=== PATIENT | female | born 1965 | race Caucasian/White ===

== ENCOUNTER → 2017-01-25 | Outpatient (CLI) | payer OTHER ==
--- NOTE | 2017-01-25 22:20 | CONS ---
CONSULTATION DATE OF SERVICE: 01/25/2017 This 51-year-old lady has been evaluated in the sleep center for possible obstructive sleep apnea-hypopnea syndrome and excessive daytime sleepiness. HISTORY OF PRESENT ILLNESS/SLEEP-WAKE EVALUATION: Patient's usual sleep schedule is basically from 9 p.m. to 7 a.m. on working days and from 9 p.m. until around 7:30 a.m. on the weekend. No problem with falling asleep, although she has a TV set in the bedroom. She sleeps on the side position. She snores, and according to people in the hospital when she had surgery, she has episodes of stopped breathing during sleep. She breathes through her mouth and has awakenings with a dry mouth and sweating, about 3 times at night, and has up to 2 episodes of nocturia. During the day she wakes up tired, has problems paying attention, problems with memory, concentration, anxiety. [place] Sleepiness Scale is significantly increased at 17. She takes naps if possible around 2 p.m. Sometimes she dreams during the naps. No history of cataplexy. No history of hypnagogic hallucinations or sleep paralysis. [place] Sleepiness Scale significantly increased at 17. PAST MEDICAL HISTORY: Positive for anxiety, acid reflux. PAST SURGICAL HISTORY: 1. Ganglion cyst removed. 2. Carpal tunnel syndrome surgery, both arms. 3. Sinus surgery. 4. Left and right knee arthroscopic surgery. 5. Partial hysterectomy in 1998. MEDICATIONS: 1. Zoloft. 2. Baby aspirin. 3. Prevacid. FAMILY HISTORY: Heart problems, fibromyalgia, arthritis, sinus headache, allergies, bronchitis, sleep apnea, snoring, headaches, acid reflux, diabetes, nasal polyps, during sleep, restless legs. SOCIAL HISTORY: Positive for smoking for about 20 pack/years. Quit about 16 years ago. Alcohol consumption occasionally. REVIEW OF SYSTEMS: Awakenings from sleep. Sleepiness during the day in significant range. Increasing weight for the last several years; about 40 pounds in the last 10 years. Perimenopausal hot flashes. PHYSICAL EXAM: This is a 51-year-old pleasant lady without distress. VITAL SIGNS: BP 121/82, HR 83, RR 16, height 5 feet 2 inches, weight 215.6, BMI 39.3. Neck 14 inches in circumference. Temperature 97.7. Oxygen saturation on room air 96%. HEENT: PERRLA, EOMI. Evaluation of oropharynx showed tongue protrudes midline. Moderately low position of soft palate. Short distance between soft palate and posterior pharyngeal wall. Wide pillars. Restriction of nasal breathing on the left side. NECK: Supple. No JVD. Thyroid is not palpable. LUNGS: Clear to percussion and to auscultation. Good air exchange. No wheezing or rhonchi. HEART: S1, S2 with some irregularities. Slight systolic murmur. ABDOMEN: Obese. EXTREMITIES: No clubbing or cyanosis. COMPOUND SPECIALIST: Awake, alert and oriented x3. Cranial nerves 2 to 7 intact. There is no fasciculation or atrophy noted. No focal deficits observed. IMPRESSION: 1. Snoring, witnessed episodes of stopped breathing during the sleep, small oropharyngeal air space, multiple awakenings from sleep with nocturia, significant excessive daytime sleepiness, [place] Sleepiness Scale increased at 17; obstructive sleep apnea-hypopnea syndrome. 2. Obesity; BMI 39.3. 3. Anxiety. 4. Status post ganglion cyst removed. 5. Status post carpal tunnel syndrome surgery. 6. Acid reflux. 7. Status post partial hysterectomy. 8. Status post sinus surgery in 2002. PLAN: 1. Polysomnography for evaluation of patient's breathing during sleep. 2. CPAP/BiPAP titration if sleep study confirms obstructive sleep apnea-hypopnea syndrome. 3. Preferable position during sleep is on the side. 4. No driving if patient feels any sleepiness. Patient is aware of civil and criminal liability for unsafe driving. 5. I will see patient for follow-up visit to explain results of testing and follow-up plan. Thank you very much for referring this patient for consultation. Sincerely, Jason Zambrano MD, PhD, FAASM Diplomat of [employer] Weight Reduction Specialist of [facility] [place] MMODL / IJN: [id number] /
== END ==
LOC: SLEEP 14:01
PROVIDERS: ATTEND Internal Medicine
DX: G47.10 Hypersomnia, unspecified (principal); G47.33 Obstructive sleep apnea (adult) (pediatric); E66.9 Obesity, unspecified; F41.9 Anxiety disorder, unspecified; K21.9 Gastro-esophageal reflux disease without esophagitis; Z98.890 Other specified postprocedural states; Z90.711 Acquired absence of uterus with remaining cervical stump; Z79.899 Other long term (current) drug therapy; Z79.82 Long term (current) use of aspirin; Z87.891 Personal history of nicotine dependence; Z68.39 Body mass index [BMI] 39.0-39.9, adult
CPT/HCPCS: 99211

== ENCOUNTER → 2017-02-05 | Outpatient (CLI) | payer OTHER ==
--- NOTE | 2017-02-07 07:11 | MM ---
Reason for exam: screening (asymptomatic). Last mammogram was performed 7 years ago. History: Patient is postmenopausal. Took hormonal contraceptives for 5 years beginning at age 15. Taking estrogen for 6 years 5 months beginning at age 35. Physical Findings: A clinical breast exam by your physician is recommended on an annual basis and results should be correlated with mammographic findings. MG 3D Screening Mammo W/Cad Bilateral CC and MLO view(s) were taken. Prior study comparison: November 11, 2015, mammogram, performed at [facility]. December 29, 2013, mammogram, performed at [facility]. January 02, 2013, mammogram, performed at [facility]. December 25, 2012, mammogram, performed at [facility]. February 17, 2010, bilateral digital screening mammogram. February 16, 2009, bilateral diagnostic digital mammog. There are scattered fibroglandular densities. Focal asymmetry in the left breast 7.6cm from nipple. This finding is changed when compared with previous exams. ASSESSMENT: Incomplete: need additional imaging evaluation, BI-RAD 0 RECOMMENDATION: Special view mammogram of the left breast. If lesion persists on supplemental views, image directed ultrasound is recommended. [facility] will attempt to contact patient to return for supplemental views and ultrasound if indicated.
== END | disposition home or self-care (01) ==
LOC: RADMAMWWP 16:17
PROVIDERS: ATTEND Obstetrics & Gynecology
DX: Z12.31 Encounter for screening mammogram for malignant neoplasm of breast (principal)
CPT/HCPCS: 77063; G0202

== ENCOUNTER → 2017-02-14 | Outpatient (CLI) | payer OTHER ==
--- NOTE | 2017-02-15 07:38 | MM ---
Reason for exam: additional evaluation requested from abnormal screening. Last mammogram was performed less than 1 month ago. History: Patient is postmenopausal. Took hormonal contraceptives for 5 years beginning at age 15. Taking estrogen for 6 years 5 months beginning at age 35. Physical Findings: Nurse did not find any significant physical abnormalities on exam. MG 3D Work Up W/Cad LT CC and MLO view(s) were taken of the left breast. Prior study comparison: February 05, 2017, bilateral MG 3d screening mammo w/cad. November 11, 2015, mammogram, performed at [facility]. There are scattered fibroglandular densities. There is no discrete abnormality persists on additional views. These results were verbally communicated with the patient and result sheet given to the patient on 02/14/17. ASSESSMENT: Negative, BI-RAD 1 RECOMMENDATION: Return to routine screening mammogram schedule for both breasts.
== END | disposition home or self-care (01) ==
LOC: RADMAMWWP 15:08
PROVIDERS: ATTEND Obstetrics & Gynecology
DX: R92.8 Other abnormal and inconclusive findings on diagnostic imaging of breast (principal)
CPT/HCPCS: G0206; G0279

== ENCOUNTER → 2017-05-03 | Outpatient (CLI) | payer OTHER ==
--- NOTE | 2017-05-03 15:11 | PN ---
PROGRESS NOTE DATE OF SERVICE: 05/03/2017 A 51-year-old lady who has been followed in the Sleep Center for treatment of obstructive sleep apnea-hypopnea syndrome. Recently patient had diagnostic sleep study and CPAP titration and I discussed results of sleep studies with patient in details. The diagnostic sleep study showed severe obstructive sleep apnea-hypopnea syndrome in the range of apnea-hypopnea index 30.1 with oxygen desaturation to 79.5%. Recommended CPAP pressure was 11 cm of water. Patient subsequently was started on treatment with CPAP and she sleeps much better with CPAP. No awakenings as before. No sleepiness during the day as before. Today [place] Sleepiness Scale is 9. I checked the patient's CPAP unit. CPAP pressure 11 cm of water usage is 100% of the time more than 4 hours, average 9.2 hours. Leak is 7 L/minute which is perfect. Apnea- hypopnea index is only 1.2. MEDICATIONS: Prevacid, baby aspirin, Zoloft. PHYSICAL EXAM: Patient in no distress. BP 117/68, HR 88, RR 16, weight 219, temp 98.1. Oxygen saturation at room air 96%. OROPHARYNX: Low position of soft palate. ABDOMEN: Obese. Neck Supple, no JVD. Thyroid is not palpable. LUNGS Clear to percussion and to auscultation. Good air exchange. No wheezing or rhonchi. HEART S1, S2 regular. No murmurs, gallops, or rubs. EXTREMITIES No clubbing or cyanosis. [employer] Awake, alert, and oriented X3. Cranial nerves 2 to 7 intact. There is no fasciculation or atrophy. noted. No focal deficits observed. IMPRESSION: 1. Obstructive sleep apnea-hypopnea syndrome on the border of severe range. Apnea- hypopnea index of 30.1 on full control with CPAP at 11 cm of water. Patient demonstrated 100% compliance with treatment, benefitting from treatment. 2. Obesity. 3. Anxiety. 4. Status post ganglion cyst removed. 5. Status post carpal tunnel syndrome treated by Surgery. 6. Acid reflux. 7. Status post partial hysterectomy. 8. Status post sinus surgery. PLAN: 1. Continue treatment with CPAP every night. 2. Losing weight. 3. Sleep hygiene with regular time in bed for at least 7.5 hours. 4. No driving if feeling any sleepiness. Thank you very much for allowing me to participate in the management of your patient. Sincerely, Jason Zambrano MD, PhD, FAASM Diplomat of [employer] Drafter of [facility] [place] MMULISES / RADHA: [id number] /
== END | disposition home or self-care (01) ==
LOC: SLEEP 13:53
PROVIDERS: ATTEND Internal Medicine
DX: G47.33 Obstructive sleep apnea (adult) (pediatric) (principal); E66.9 Obesity, unspecified; K21.9 Gastro-esophageal reflux disease without esophagitis; F41.9 Anxiety disorder, unspecified; Z79.899 Other long term (current) drug therapy; Z79.82 Long term (current) use of aspirin; Z98.890 Other specified postprocedural states; Z90.711 Acquired absence of uterus with remaining cervical stump; Z99.89 Dependence on other enabling machines and devices

== ENCOUNTER → 2017-08-07 | Outpatient (CLI) | payer OTHER ==
--- NOTE | 2017-08-07 15:46 | CT ---
EXAMINATION TYPE: CT abdomen pelvis w con DATE OF EXAM: 08/07/2017 HISTORY: Generalized pain and bloating with blood in stool CT DLP: 1454.4mGycm Automated Exposure Control for Dose Reduction was Utilized. CONTRAST: CT scan of the abdomen and pelvis is performed with oral and with IV Contrast, patient injected with 100 mL of Omnipaque 300. COMPARISON: CT abdomen pelvis February 25, 2010 FINDINGS: LUNG BASES: No significant abnormality is appreciated. LIVER/GB: No significant abnormality is appreciated. PANCREAS: No significant abnormality is seen. SPLEEN: No significant abnormality is seen. ADRENALS: No significant abnormality is seen. KIDNEYS: No significant abnormality is seen. BOWEL: Oral contrast reaches level of mid transverse colon. There is no suspicious small or large bow el dilatation. Terminal ileum appears within normal limits. There is mild wall thickening in the sigm oid colon. UTERUS/ADNEXA: Uterus is suspected surgically absent. Remnant ovaries are noted and not suspiciously enlarged near axial image 73. Scattered pelvic phleboliths are again seen. LYMPH NODES: No greater than 1cm abdominal or pelvic lymph nodes are appreciated. OSSEOUS STRUCTURES: Mild multilevel spurring in the thoracolumbar spine is present. There is facet ar thropathy lower lumbar levels. OTHER: No significant additional abnormality is seen. IMPRESSION: Mild wall thickening at level of sigmoid colon favors product of poor distention, mild co litis at this level cannot be excluded otherwise fairly unremarkable study.
== END | disposition home or self-care (01) ==
LOC: RADCTMAIN 14:04
PROVIDERS: ATTEND Surgery Plastic and Reconstructive Surgery
DX: K63.89 Other specified diseases of intestine (principal)
CPT/HCPCS: 74177; Q9967

== ENCOUNTER 2017-08-10 11:39 | Day surgery (SDC) | payer OTHER ==
[2017-08-07 15:00] VITALS: BMI 39.4
--- NOTE | 2017-08-10 07:03 | P.GSHP ---
History of Present Illness H&P Date: 08/10/17 CHIEF COMPLAINT: GERD and colon cancer screen HISTORY OF PRESENT ILLNESS: The patient is a 51-year-old female who presents with gastroesophageal reflux disease and colon cancer screen. Upper and lower endoscopy were offered for further evaluation and management. PAST MEDICAL HISTORY: Please see list. PAST SURGICAL HISTORY: Please see list. MEDICATIONS: Please see list. ALLERGIES: Please see list. SOCIAL HISTORY: No illicit drug use FAMILY HISTORY: No reports of Crohn disease or ulcerative colitis. REVIEW OF ORGAN SYSTEMS: CONSTITUTIONAL: No reports of fevers or chills. PHYSICAL EXAM: VITAL SIGNS: Stable GENERAL: Well-developed pleasant in no acute distress. HEENT: No scleral icterus. Extraocular movements grossly intact. Moist buccal mucosa. NECK: Supple without lymphadenopathy. CHEST: Unlabored respirations. Equal bilateral excursions. CARDIOVASCULAR: Regular rate and rhythm. Distal 2+ pulses. ABDOMEN: Soft, nondistended. MUSCULOSKELETAL: No clubbing, cyanosis, or edema. ASSESSMENT: 1. Gastroesophageal reflux disease 2. Colon cancer screen PLAN: 1. 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 History of Any Multi-Drug Resistant Organisms: None Reported Past Surgical History: Hysterectomy, Orthopedic Surgery Additional Past Surgical History / Comment(s): NASAL surgery, SERGIO KNEES ARTHROSCOPY,SERGIO CARPAL TUNNEL, SERGIO WRIST GANGLION CYST, CYST REMOVED LT ARM Past Anesthesia/Blood Transfusion Reactions: No Reported Reaction Past Psychological History: No Psychological Hx Reported Smoking Status: Former smoker Past Alcohol Use History: Occasional Additional Past Alcohol Use History / Comment(s): quit smoking 14 yrs ago, smoked 1 Pack/ week Past Drug Use History: None Reported - Past Family History Mother Family Medical History: No Reported History Medications and Allergies Home Medications Medication Instructions Recorded Confirmed Type Sertraline [Zoloft] 50 mg PO DAILY 03/17/14 08/07/17 History Aspirin [Adult Low Dose Aspirin EC] 81 mg PO DAILY 01/11/16 08/07/17 History Omeprazole [Omeprazole] 20 mg PO DAILY 08/07/17 08/07/17 History Allergies Allergy/AdvReac Type Severity Reaction Status Date / Time Penicillins Allergy Severe Rash/Hives Verified 08/07/17 14:56 hydrocodone bitartrate Allergy Mild Rash/Hives Verified 08/07/17 14:56 [From Vicodin]
[~2017-08-10 11:39] MED LIST: LACTATED RINGERS 1,000 ML IV SCH
[2017-08-10 12:55] VITALS: TEMP 96.3
[2017-08-10] MEDS ORDERED: LIDOCAINE 1% 20 ML VIAL (10MG/ML) FOR IV START INTRADERMA ONE (12:58)
[2017-08-10] MEDS ORDERED: LIDOCAINE 1% INJ 10MG/ML (20 ML MDV) ONE (13:08)
[2017-08-10] MEDS ORDERED: PROPOFOL 10 MG/ML 20 ML VIAL IV ONE (13:08)
[2017-08-10] MEDS ORDERED: fentaNYL (PF) 50 MCG/ML 2 ML AMP ONE (13:08)
--- NOTE | 2017-08-10 13:18 | P.PCN ---
Date of Procedure: 08/10/17 Description of Procedure: PREOPERATIVE DIAGNOSIS: Gastroesophageal reflux disease. Morbid obesity. POSTOPERATIVE DIAGNOSIS: Morbid obesity. Gastritis. Gastroesophageal reflux disease. OPERATION: Esophagogastroduodenoscopy with biopsies along antrum. SURGEON: Holly Murphy MD ANESTHESIA: MAC. INDICATIONS: The patient is a 51-year-old female who presents with a history of reflux disease. Benefits and risks of the procedure were described. Informed consent was obtained. DESCRIPTION: The patient was brought into the endoscopy suite and laid in the left lateral decubitus position. An Olympus gastroscope was passed along the posterior oropharynx down to the distal esophagus where the squamocolumnar junction was encountered at 36 cm from the incisors. The stomach was entered and no bile reflux was found. Additional findings are listed below. Biopsies with cold forceps were obtained of the antrum. The first through third portion of the duodenum was examined and unremarkable. Retroflexion of the scope confirmed Hill grade 1 lower esophageal valve. The squamocolumnar junction demostrated no LA grade A erosive esophagitis. The stomach was desufflated. The patient tolerated the procedure well. FINDINGS: Squamocolumnar junction 36 cm from the incisors. Diaphragmatic hiatus at 36 cm. Hill grade 1 lower esophageal valve. No LA grade A erosive esophagitis. No active duodenitis. No moderate gastritis. RECOMMENDATIONS: Further recommendations pending results of pathology report. Upper endoscopy as needed.
--- NOTE | 2017-08-10 13:46 | P.PCN ---
Date of Procedure: 08/10/17 Description of Procedure: PREOPERATIVE DIAGNOSIS: Colon screen History of polyps POSTOPERATIVE DIAGNOSIS: Colon screen History of polyps Colitis OPERATION: Colonoscopy to the hepatic flexure Colonoscopy cold forceps biopsies, random SURGEON: Holly Murphy MD. ANESTHESIA: MAC. INDICATIONS: The patient is a 51-year-old female who presents with colon screening. Benefits and risks were described and informed consent was obtained. DESCRIPTION OF PROCEDURE: The patient had undergone Gatorade, MiraLAX and Dulcolax prep. She had been brought into the operating room and laid in the left lateral decubitus position. After adequate intravenous sedation, the rectum was examined with 2% lidocaine jelly. An external hemorrhoids were encountered. The rectal tone was within normal limits. No lesions were palpated in the rectal vault. An Olympus colonoscope was advanced to the hepatic flexure. The patient was reposition from left lateral decubitus position to supine including abdominal pressure where the scope could not safely pass beyond the hepatic flexure. The prep was excellent with clear visualization of the mucosal folds. The scope was removed with visualization of each mucosal fold. No scattered diverticulosis was encountered. Random biopsies were obtained throughout the colon for change in bowel habits to evaluate for colitis. The colon was desufflated. The patient had tolerated the procedure well. Withdrawal time was over 6 minutes. FINDINGS: External prolapsed hemorrhoid No arteriovenous malformations. No large colonic polyps Colonoscopy to hepatic flexure RECOMMENDATIONS: Repeat colonoscopy in 3 years, 2020 Plan - Discharge Summary New Discharge Prescriptions: No Action Sertraline [Zoloft] 50 mg PO DAILY Aspirin [Adult Low Dose Aspirin EC] 81 mg PO DAILY Omeprazole [Omeprazole] 20 mg PO DAILY Discharge Medication List Sertraline [Zoloft] 50 mg PO DAILY 03/17/14 [History] Aspirin [Adult Low Dose Aspirin EC] 81 mg PO DAILY 01/11/16 [History] Omeprazole [Omeprazole] 20 mg PO DAILY 08/07/17 [History] Follow up Appointment(s)/Referral(s): Holly Murphy MD [STAFF PHYSICIAN] - 08/14/17 ([place]) Discharge Disposition: HOME SELF-CARE
[2017-08-10 14:04] VITALS: PULSE 70
[2017-08-10 14:17] VITALS: BP 128/81; RESP 16
== END 2017-08-10 14:36 | disposition home or self-care (01) ==
LOC: ORWHC2ENDO 11:39
PROVIDERS: ATTEND Surgery Plastic and Reconstructive Surgery
DX: Z12.11 Encounter for screening for malignant neoplasm of colon (principal); K29.50 Unspecified chronic gastritis without bleeding; K52.9 Noninfective gastroenteritis and colitis, unspecified; K64.8 Other hemorrhoids; Z86.010 Personal history of colon polyps; K21.9 Gastro-esophageal reflux disease without esophagitis; E66.01 Morbid (severe) obesity due to excess calories; Z68.39 Body mass index [BMI] 39.0-39.9, adult; M19.90 Unspecified osteoarthritis, unspecified site; F32.9 Major depressive disorder, single episode, unspecified; Z87.891 Personal history of nicotine dependence; Z79.82 Long term (current) use of aspirin; Z79.899 Other long term (current) drug therapy; Z88.5 Allergy status to narcotic agent; Z88.0 Allergy status to penicillin
CPT/HCPCS: 88305; 45380; 43239; J2001; J3010; J2704

== ENCOUNTER 2017-09-28 09:39 | Day surgery (SDC) | payer OTHER ==
[2017-09-26 10:33] VITALS: BMI 39.3
--- NOTE | 2017-09-28 05:42 | P.GSHP ---
History of Present Illness H&P Date: 09/28/17 CHIEF COMPLAINT: Cholecystitis HISTORY OF PRESENT ILLNESS: The patient is a 52-year-old female who presents with history of epigastric including right upper quadrant abdominal pain. She underwent diagnostic studies for her gallbladder. Separately her clinical picture was consistent with cholecystitis. Now she presents for surgical intervention. PAST MEDICAL HISTORY: Please see list PAST SURGICAL HISTORY: Please see list MEDICATIONS: Please see list ALLERGIES: See list. SOCIAL HISTORY: No recent tobacco use FAMILY HISTORY: Pertinent for gallbladder disease REVIEW OF ORGAN SYSTEMS: CONSTITUTIONAL: No reports of fevers or chills. HEENT: Denies any troubles with the vision or hearing. PHYSICAL EXAM: VITAL SIGNS: Afebrile vital signs stable GENERAL: Well-developed pleasant in no acute distress. HEENT: No scleral icterus. Extraocular movements grossly intact. Moist buccal mucosa. NECK: Supple without lymphadenopathy. CHEST: Unlabored respirations. Equal bilateral excursions. CARDIOVASCULAR: Regular rate regular rhythm rhythm. Distal 2+ pulses. ABDOMEN: Soft, nondistended. Tender along the epigastrium and right upper quadrant. MUSCULOSKELETAL: No clubbing, cyanosis, or edema. NEURO: Cranial nerves II to XII within normal limits. No focal or lateralizing signs. PSYCH: Alert and oriented to person, place and time. ASSESSMENT: 1. Epigastric and right upper quadrant abdominal pain 2. Chronic cholecystitis PLAN: 1. Will need a robotic cholecystectomy possible open. Benefits and risks were described. 2. Heparin for DVT prophylaxis 5000 units. 3. Antibiotic prophylaxis. 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, has c-pap machine History of Any Multi-Drug Resistant Organisms: None Reported Past Surgical History: Hysterectomy, Orthopedic Surgery Additional Past Surgical History / Comment(s): NASAL surgery, SERGIO KNEES ARTHROSCOPY,SERGIO CARPAL TUNNEL, SERGIO WRIST GANGLION CYST, CYST REMOVED LT ARM Past Anesthesia/Blood Transfusion Reactions: No Reported Reaction, Family History of Problems w/ Anesthesia Additional Past Anesthesia/Blood Transfusion Reaction / Comment(s): "brother has hard time coming of out anethesia with PONV" Smoking Status: Former smoker - Past Family History Mother Family Medical History: No Reported History Medications and Allergies Home Medications Medication Instructions Recorded Confirmed Type Sertraline [Zoloft] 50 mg PO DAILY 03/17/14 09/26/17 History Aspirin [Adult Low Dose Aspirin EC] 81 mg PO DAILY 01/11/16 09/26/17 History Omeprazole [Omeprazole] 20 mg PO DAILY 08/07/17 09/26/17 History Allergies Allergy/AdvReac Type Severity Reaction Status Date / Time Penicillins Allergy Severe Rash/Hives Verified 09/26/17 10:23 hydrocodone bitartrate Allergy Mild Rash/Hives Verified 09/26/17 10:23 [From Vicodin]
[~2017-09-28 09:39] MED LIST changes: +ACETAMINOPHEN IV (For NPO) 1,000 MG in EMPTY BAG 1 BAG IVPB ONE; +DEXAMETHASONE SOD PHOSPHATE 10 MG/ML 1 ML VIAL IV ONE; +HEPARIN SODIUM,PORCINE 5,000 UNIT/ML 1 ML VIAL SQ ONE; +INDOCYANINE GREEN 25 MG VIAL IV STA; +LIDOCAINE 1% 20 ML VIAL (10MG/ML) FOR IV START INTRADERMA PRN; +MIDAZOLAM 2 MG/2 ML VIAL IV PRN; +ONDANSETRON 4 MG/2 ML VIAL IVP ONE; +SCOPOLAMINE 1.5MG/72HR PATCH TRANSDERM ONE; +ceFAZolin IN SWFI 2 GM/20 ML SYRINGE IVP ONE
[2017-09-28 10:47] VITALS: RESP 16
[2017-09-28 10:58] LABS: Basophils % (A) 0 %; Eosinophils # (A) 0.3 k/uL (0-0.7); Eosinophils % (A) 5 %; HCT 37.9 % (34.0-46.0); HGB 12.9 gm/dL (11.4-16.0); Lymphocytes # (A) 1.7 k/uL (1.0-4.8); Lymphocytes % (A) 30 %; MCH 31.3 pg (25.0-35.0); MCV 91.9 fL (80.0-100.0); Mean Platelet Volume 7.8; Monocytes # (A) 0.4 k/uL (0-1.0); Monocytes % (A) 7 %; Neutrophils # (A) 3.1 k/uL (1.3-7.7); Neutrophils % (A) 56 %; Platelet Count 309 k/uL (150-450); RBC 4.13 m/uL (3.80-5.40); RDW 12.3 % (11.5-15.5); WBC 5.7 k/uL (3.8-10.6)
[2017-09-28 11:09] LABS: ALT 28 U/L (9-52); AST 15 U/L (14-36); Alkaline Phosphatase 89 U/L (38-126); Anion Gap 11 mmol/L; Blood Urea Nitrogen 12 mg/dL (7-17); Calcium 9.3 mg/dL (8.4-10.2); Carbon Dioxide 26 mmol/L (22-30); Chloride 106 mmol/L (98-107); Glucose 101 mg/dL (74-99); Potassium 4.4 mmol/L (3.5-5.1); Sodium 143 mmol/L (137-145); Total Bilirubin 0.8 mg/dL (0.2-1.3)
[2017-09-28] MEDS ORDERED: GLYCOPYRROLATE 0.2 MG/ML 2 ML VIAL ONE (11:38)
[2017-09-28] MEDS ORDERED: NEOSTIGMINE 1 MG/ML 10 ML VIAL ONE (11:38)
[2017-09-28] MEDS ORDERED: SUCCINYLCHOLINE CHLORIDE 100 MG/5 ML SYR IV ONE (11:38)
[2017-09-28] MEDS ORDERED: ePHEDrine SULFATE/0.9% NACL/PF 50 MG/5 ML SYRINGE IV ONE (11:38)
[2017-09-28] MEDS ORDERED: LIDOCAINE 1% INJ 10MG/ML (20 ML MDV) ONE (11:38)
[2017-09-28] MEDS ORDERED: MIDAZOLAM 2 MG/2 ML VIAL ONE (11:38)
[2017-09-28] MEDS ORDERED: fentaNYL (PF) 50 MCG/ML 2 ML AMP ONE (11:38)
[2017-09-28] MEDS ORDERED: PROPOFOL 10 MG/ML 20 ML VIAL IV ONE (11:38)
[2017-09-28] MEDS ORDERED: INDOCYANINE GREEN 25 MG VIAL IV ONE (11:38)
[2017-09-28] MEDS ORDERED: ROCURONIUM BROMIDE 10 MG/ML 10 ML VIAL IV ONE (11:38)
[2017-09-28] MEDS ORDERED: BUPIVACAINE (PF) 0.25% 30 ML VIAL SQ ONE (12:02)
[2017-09-28] MEDS ORDERED: LACTATED RINGERS 1,000 ML IV ONE (12:38)
--- NOTE | 2017-09-28 12:48 | P.OP ---
Date of Procedure: 09/28/17 Description of Procedure: SURGEON: ZAK BRYANT MD MANAGER [place]: [place] PREOPERATIVE DIAGNOSES: 1. Chronic cholecystitis. 2. Right upper quadrant abdominal pain 3. Morbid obesity due to excess calories 4. BMI 39.3 5. Obstructive sleep apnea. 6. Gastroesophageal reflux disease POSTOPERATIVE DIAGNOSES: 1. Chronic cholecystitis. 2. Right upper quadrant abdominal pain 3. Morbid obesity due to excess calories 4. BMI 39.3 5. Obstructive sleep apnea. 6. Gastroesophageal reflux disease OPERATION: 1. Robotic-assisted da Juliana Xi laparoscopic cholecystectomy, multiport with FIREFLY ESTIMATED BLOOD LOSS: 5 mL SPECIMENS REMOVED: Gallbladder COMPLICATIONS: None. OPERATIVE FINDINGS: 1. Chronic cholecystitis INDICATIONS: The patient is a 52-year-old female who presents with chronic cholelcystitis. Surgical intervention with a laparoscopic cholecystectomy was described at length including injury to the biliary tree, bleeding, infection, need for further surgery. Informed consent was obtained. Robotic assisted laparoscopic approach was described. Benefits and risks of the procedure including but not limited to bleeding, infection, injury to the biliary tree was described. Informed consent was obtained. DESCRIPTION OF PROCEDURE: Patient was brought to the operating room, placed in supine position. After general induction, the abdomen had been prepped and draped in standard sterile fashion. The robotic da Juliana XI system was primed. After a timeout protocol was performed, the patient had been prepped and draped in standard sterile fashion. The patient was injected with indocyanine green. The robot was docked along the left lateral abdomen. The patient was repositioned in reverse Trendelenburg position. Please note prior to docking of the robot; however, a 5 mm 0 degrees laparoscopic trocar entry was performed along the left upper quadrant. Next, two 8 mm robotic ports were placed along the right upper abdomen. The camera 8-mm port was maintained along the epigastrium. Another 8 mm port was placed along the left upper abdominal wall after exchanging the 5 mm port. Please note that the ports were placed at least 10 to 15 cm away from the target anatomy of the gallbladder. Using a grasper for arm 3, a grasper for arm 2, including hook cautery for arm 1 , the robotic system was docked and primed as described. Instruments were interchanged by the chiropractic assistant including hook cautery, Bovie cautery scissors and clip appliers. I had sat at the console. Adhesions were identified along the infundibulum of the gallbladder and addressed using hook cautery. The gallbladder fundus was retracted over the dome of the liver. Initial attention was brought to the infundibulum which was gently retracted in the inferior lateral approach. Using a grasper, the cystic duct including the cystic artery was carefully skeletonized. FIREFLY was used to identify the cystic artery and cystic structures. Using a clip software licensing analyst 2 large PLASTIC clips were placed proximally, and 1 clip was placed distally along the cystic duct and then cauterized with the cautery. Again care was taken to avoid any injury to the biliary tree as the common bile duct was clearly visualized during this portion of dissection. Next, the cystic artery was cauterized after 2 large PLASTIC clips were placed. Electro-Bovie cautery was used to remove the gallbladder from the hepatic fossa. Hemostasis was checked and found to be adequate. The robot was undocked. I re-scrubbed into the case. Using a 10 mm Endo Catch bag via the left upper quadrant incision, the specimen was removed from the abdominal cavity. All pneumoperitoneum instruments were evacuated from the abdominal cavity. The incisions were reapproximated using 4-0 Monocryl in an interrupted subcuticular fashion. Fascial defect was less than 8 mm in size. Please note along the trocar sites, local anesthetic was placed as a field block prior to insertion of all instruments. Dermabond was applied to the skin. At the end of the procedure needle, sponge, and instrument count had been verified correct by the registered nurse surgical services. The patient was transferred to postanesthesia care unit in stable condition. Intraoperative films were shared with the patient's family who were very pleased with the level of care. Console time 13 minutes Plan - Discharge Summary New Discharge Prescriptions: No Action Sertraline [Zoloft] 50 mg PO DAILY Aspirin [Adult Low Dose Aspirin EC] 81 mg PO DAILY Omeprazole [Omeprazole] 20 mg PO DAILY Discharge Medication List Sertraline [Zoloft] 50 mg PO DAILY 03/17/14 [History] Aspirin [Adult Low Dose Aspirin EC] 81 mg PO DAILY 01/11/16 [History] Omeprazole [Omeprazole] 20 mg PO DAILY 08/07/17 [History]
[2017-09-28 12:57] VITALS: TEMP 97
[2017-09-28] MEDS: MORPHINE SULFATE 4 MG/ML SYRINGE IV PRN ×4 (13:07→13:30)
[2017-09-28 14:10] VITALS: PULSE 95
[2017-09-28] MEDS ORDERED: IBUPROFEN 600 MG TAB PO STA (14:15)
[2017-09-28 14:39] VITALS: BP 115/74
== END 2017-09-28 15:19 | disposition home or self-care (01) ==
LOC: OR 09:39
PROVIDERS: ATTEND Surgery Plastic and Reconstructive Surgery
DX: K81.1 Chronic cholecystitis (principal); K82.8 Other specified diseases of gallbladder; K21.9 Gastro-esophageal reflux disease without esophagitis; G47.33 Obstructive sleep apnea (adult) (pediatric); K58.9 Irritable bowel syndrome, unspecified; E66.01 Morbid (severe) obesity due to excess calories; K44.9 Diaphragmatic hernia without obstruction or gangrene; Z68.39 Body mass index [BMI] 39.0-39.9, adult; Z79.82 Long term (current) use of aspirin; M19.90 Unspecified osteoarthritis, unspecified site; Z87.891 Personal history of nicotine dependence; Z99.89 Dependence on other enabling machines and devices; Z88.0 Allergy status to penicillin; Z88.5 Allergy status to narcotic agent; Z79.899 Other long term (current) drug therapy; Z90.710 Acquired absence of both cervix and uterus
CPT/HCPCS: 88304; 80053; 85025; 47562; J2250; J2270; J1644; J1100; J2710; J2405; J2001; J3010; J0330; J2704; J0690

== ENCOUNTER 2019-12-15 08:04 | Day surgery (SDC) | payer OTHER ==
[2019-12-15 08:24] VITALS: RESP 16; TEMP 98.5
[2019-12-15] MEDS ORDERED: SODIUM CHLORIDE 0.9% 500 ML 500 ML IV ONE (08:24)
[2019-12-15] MEDS ORDERED: fentaNYL (PF) 50 MCG/ML 2 ML AMP ONE (09:40)
[2019-12-15] MEDS: BENZOCAINE SPRAY 1 CAN TOPICAL ONE ×2 (09:49→10:02)
[2019-12-15] MEDS ORDERED: MIDAZOLAM 2 MG/2 ML VIAL IV ONE (10:09)
[2019-12-15] MEDS ORDERED: fentaNYL (PF) 50 MCG/ML 2 ML AMP IV ONE (10:09)
--- NOTE | 2019-12-15 10:43 | ECHOT ---
TRANSESOPHAGEAL ECHOCARDIOGRAM INDICATION: Shortness of breath with valvular heart disease. PROCEDURE NOTE: After obtaining informed consent, transesophageal echocardiogram is performed in left lateral position using an Omni plane probe. Local and IV sedation were obtained using Xylocaine spray, intravenous Versed and fentanyl. Patient tolerated the procedure well without any obvious immediate complications. Patient received moderate conscious sedation. Total sedation time was 7 minutes. FINDINGS: 1. Mitral valve appears anatomically normal. There is mild mitral regurgitation noted. 2. Aortic valve is a 3-leaflet valve. There is moderate aortic regurgitation noted. 3. Tricuspid valve appears normal. 4. There is no evidence of [id number] shunt by color-flow Doppler or [id number] shunt by agitated saline contrast study across the interatrial septum. 5. Left atrium, right atrium, right ventricle exam within normal limits. 6. Aorta is free of aneurysm. 7. Left ventricle percent shows mild diffuse global hypokinesis with ejection fraction of around 50%. CONCLUSION: 1. Moderate aortic regurgitation. 2. Mild mitral regurgitation. 3. Mild diffuse hypokinesis with an ejection fraction of 50%. PLAN: Patient has unexplained shortness of breath and strong family history of coronary artery disease. I advised her to undergo cardiac catheterization for further evaluation and will bring her back and do this over the next several days. MMODL / IJN: [id number] /
[2019-12-15 12:51] VITALS: BP 121/58; PULSE 68
--- NOTE | 2019-12-19 15:24 | CC ---
CARDIAC CATHETERIZATION REPORT Kimberly is a 54-year-old lady with history of aortic regurgitation who recently presented to me with shortness of breath. She had moderate to severe intensity unexplained shortness of breath, underwent a transesophageal echo that showed mild mitral regurgitation and moderate aortic regurgitation with mild diffuse global hypokinesis with an ejection fraction of 55%. I advised her to undergo cardiac catheterization to definitively rule out coronary artery disease. She has been explained risks, benefits and alternatives, understood and accepted. PROCEDURE NOTE: After obtaining informed consent, left heart catheterization and coronary angiogram were performed via the right femoral artery using standard Aleah catheters. The patient tolerated the procedure well without any obvious immediate complications. A femoral angiogram was performed and decision was made for manual hemostasis, as we felt that the site of entry into the common femoral artery is high. The patient received moderate conscious sedation. Total sedation time was 19 minutes. FINDINGS: 1. HEMODYNAMICS: Left ventricular end-diastolic pressure is 22 mm. There is no significant gradient across the aortic valve. 2. LEFT VENTRICULOGRAM: Left ventriculogram was performed in YOUNG position and shows mildly enlarged left ventricle with normal LV function with an ejection fraction of 50%. 3. ANGIOGRAPHIC DATA. LEFT MAIN CORONARY ARTERY: Left main coronary artery is a normal-sized vessel and is free of stenosis. It divides into left anterior descending coronary artery and circumflex coronary artery. LAD and its branches, circumflex coronary artery and its branches are free of significant stenosis. There is a ramus intermedius that is free of significant disease. RIGHT CORONARY ARTERY: Right coronary artery is a large dominant vessel and is free of significant disease. CONCLUSIONS: Normal coronary arteries. PLAN: I reviewed angiographic data with the patient and told her that her shortness of breath is noncardiac in origin. While she has aortic regurgitation, I do not believe it is bad enough to explain her symptoms, and she certainly does not have ischemic heart disease. We will work on risk factor modification, weight loss, regular exercise, and I will see her back in the office in a week. MMODL / IJN: [id number] /
== END 2019-12-15 11:50 | disposition home or self-care (01) ==
LOC: CATHCVL 08:04
PROVIDERS: ATTEND Internal Medicine Cardiovascular Disease
DX: I08.0 Rheumatic disorders of both mitral and aortic valves (principal); F41.9 Anxiety disorder, unspecified; M19.90 Unspecified osteoarthritis, unspecified site; K21.9 Gastro-esophageal reflux disease without esophagitis; Z79.82 Long term (current) use of aspirin; Z79.899 Other long term (current) drug therapy; Z88.0 Allergy status to penicillin; Z91.040 Latex allergy status; Z88.5 Allergy status to narcotic agent; Z90.710 Acquired absence of both cervix and uterus; Z98.890 Other specified postprocedural states; Z87.891 Personal history of nicotine dependence; Z82.49 Family history of ischemic heart disease and other diseases of the circulatory system
CPT/HCPCS: 93312; 93325; J2250; J3010

== ENCOUNTER 2019-12-19 09:24 | Day surgery (SDC) | payer OTHER ==
[2019-12-17 15:47] VITALS: BMI 39.9
[~2019-12-19 09:24] MED LIST changes: -ACETAMINOPHEN IV (For NPO) 1,000 MG in EMPTY BAG 1 BAG IVPB ONE; +ALPRAZolam 0.25 MG TAB PO PRN; +ALPRAZolam 0.5 MG TAB PO PRN; +ASPIRIN 325 MG TAB PO STA; -DEXAMETHASONE SOD PHOSPHATE 10 MG/ML 1 ML VIAL IV ONE; -HEPARIN SODIUM,PORCINE 5,000 UNIT/ML 1 ML VIAL SQ ONE; -INDOCYANINE GREEN 25 MG VIAL IV STA; -LACTATED RINGERS 1,000 ML IV SCH; -LIDOCAINE 1% 20 ML VIAL (10MG/ML) FOR IV START INTRADERMA PRN; -MIDAZOLAM 2 MG/2 ML VIAL IV PRN; +NITROGLYCERIN SL TABS 0.4 MG TAB SUBLINGUAL PRN; -ONDANSETRON 4 MG/2 ML VIAL IVP ONE; -SCOPOLAMINE 1.5MG/72HR PATCH TRANSDERM ONE; +SODIUM CHLORIDE 0.9% 1,000 ML in EMPTY BAG 1 BAG IV ONE; -ceFAZolin IN SWFI 2 GM/20 ML SYRINGE IVP ONE
[2019-12-19 09:59] VITALS: TEMP 98.2
[2019-12-19 10:06] LABS: Basophils % (A) 0 %; Eosinophils # (A) 0.5 k/uL (0-0.7); Eosinophils % (A) 7 %; HGB 13.7 gm/dL (11.4-16.0); Lymphocytes # (A) 2.2 k/uL (1.0-4.8); Lymphocytes % (A) 28 %; MCHC 31.9 g/dL (31.0-37.0); MCV 97.2 fL (80.0-100.0); Mean Platelet Volume 8.8; Monocytes # (A) 0.5 k/uL (0-1.0); Monocytes % (A) 6 %; Neutrophils # (A) 4.5 k/uL (1.3-7.7); Neutrophils % (A) 58 %; Platelet Count 325 k/uL (150-450); RBC 4.42 m/uL (3.80-5.40); RDW 12.3 % (11.5-15.5); WBC 7.7 k/uL (3.8-10.6)
[2019-12-19 10:12] LABS: African American GFR (CKD) >90 (>60 ml/min/1.73 sqM); Anion Gap 7 mmol/L; Blood Urea Nitrogen 10 mg/dL (7-17); Calcium 9.3 mg/dL (8.4-10.2); Carbon Dioxide 25 mmol/L (22-30); Chloride 107 mmol/L (98-107); Glucose 115 mg/dL (74-99); Non-African American GFR(CKD) >90 (>60 ml/min/1.73 sqM); Potassium 4.8 mmol/L (3.5-5.1); Sodium 139 mmol/L (137-145)
[2019-12-19] MEDS ORDERED: LIDOCAINE 1% INJ 10MG/ML (20 ML MDV) ONE (10:38)
[2019-12-19] MEDS ORDERED: SODIUM CHLORIDE 0.9% 1,000 ML IV ONE (10:50)
[2019-12-19] MEDS ORDERED: MIDAZOLAM 2 MG/2 ML VIAL IV ONE (11:11)
[2019-12-19] MEDS ORDERED: LIDOCAINE 1% INJ 10MG/ML (20 ML MDV) SQ ONE (11:15)
[2019-12-19] MEDS ORDERED: fentaNYL (PF) 50 MCG/ML 2 ML AMP ONE (11:20)
[2019-12-19] MEDS ORDERED: fentaNYL (PF) 50 MCG/ML 2 ML AMP IVP ONE (11:21)
[2019-12-19] MEDS ORDERED: IOPAMIDOL-370 50ML BTL INJ ONE (11:30)
[2019-12-19] MEDS ORDERED: IOPAMIDOL-370 100ML BTL INJ ONE (11:33)
[2019-12-19] MEDS ORDERED: RX INFO: IV CONTRAST WAS GIVEN 1 EACH MISC MISCELLANE PRN (11:38)
[2019-12-19] MEDS ORDERED: SODIUM CHLORIDE 0.9% 1,000 ML IV SCH (11:45)
[2019-12-19 12:37] VITALS: RESP 16
[2019-12-19 14:55] VITALS: BP 108/70; PULSE 77
--- NOTE | 2020-01-06 12:42 | CC ---
CARDIAC CATHETERIZATION REPORT INDICATION: Dyspnea. This is a 54-year-old lady who presented to me with progressively worsening shortness of breath and was advised to undergo cardiac catheterization to rule out coronary artery disease. PROCEDURE NOTE: After obtaining informed consent, left heart catheterization and coronary angiogram are performed via the right femoral artery using standard Aleah catheters. Patient tolerated the procedure well without any obvious immediate complications. FINDINGS: HEMODYNAMICS: Left ventricular end-diastolic pressure is 6-8 mm. LEFT VENTRICULOGRAM: Not performed. ANGIOGRAPHIC DATA: LEFT MAIN CORONARY ARTERY: Left main coronary artery is a normal-sized vessel and is free of stenosis. Divides into left anterior descending coronary artery and circumflex coronary artery. LAD and its branches, circumflex coronary artery and its branches are free of significant stenosis. RIGHT CORONARY ARTERY : Right coronary artery is free of disease. CONCLUSIONS: Normal coronary arteries. PLAN: The patient received moderate conscious sedation and total sedation time was 19 minutes. I informed the patient that her shortness of breath is noncardiac in origin and we will continue to work on risk factor modification. MMODL / IJN: [id number] /
== END 2019-12-19 18:38 | disposition home or self-care (01) ==
LOC: CATHCVL 09:24
PROVIDERS: ATTEND Internal Medicine Cardiovascular Disease
DX: R06.02 Shortness of breath (principal); R06.00 Dyspnea, unspecified; I08.0 Rheumatic disorders of both mitral and aortic valves; I42.9 Cardiomyopathy, unspecified; F41.9 Anxiety disorder, unspecified; K21.9 Gastro-esophageal reflux disease without esophagitis; M19.90 Unspecified osteoarthritis, unspecified site; Z79.82 Long term (current) use of aspirin; Z79.899 Other long term (current) drug therapy; Z88.6 Allergy status to analgesic agent; Z88.5 Allergy status to narcotic agent; Z91.040 Latex allergy status; Z88.0 Allergy status to penicillin; Z87.891 Personal history of nicotine dependence; Z90.710 Acquired absence of both cervix and uterus; Z98.890 Other specified postprocedural states; Z86.69 Personal history of other diseases of the nervous system and sense organs; Z82.49 Family history of ischemic heart disease and other diseases of the circulatory system
CPT/HCPCS: 93458; 80048; 85025; C1769 ×2; C1894; J2250; J2001; J3010; Q9967 ×2

== ENCOUNTER 2021-04-13 07:24 | Day surgery (SDC) | payer BC, OTHER ==
[2021-04-11 13:21] VITALS: BMI 40.6
[~2021-04-13 07:24] MED LIST changes: -ALPRAZolam 0.25 MG TAB PO PRN; -ALPRAZolam 0.5 MG TAB PO PRN; -ASPIRIN 325 MG TAB PO STA; +LACTATED RINGERS 1,000 ML IV SCH; +LIDOCAINE 1% (10MG/ML) FOR IV START INTRADERMA PRN; -NITROGLYCERIN SL TABS 0.4 MG TAB SUBLINGUAL PRN; -SODIUM CHLORIDE 0.9% 1,000 ML in EMPTY BAG 1 BAG IV ONE
--- NOTE | 2021-04-13 07:39 | P.GSHP ---
History of Present Illness H&P Date: 04/13/21 CHIEF COMPLAINT: Colon screen HISTORY OF PRESENT ILLNESS: The patient is a 55-year-old female who presents for colon screen. Lower endoscopy was offered for further evaluation and management. PAST MEDICAL HISTORY: Please see list. PAST SURGICAL HISTORY: Please see list. MEDICATIONS: Please see list. ALLERGIES: Please see list. SOCIAL HISTORY: No illicit drug use FAMILY HISTORY: No reports of Crohn disease or ulcerative colitis. REVIEW OF ORGAN SYSTEMS: CONSTITUTIONAL: No reports of fevers or chills. PHYSICAL EXAM: VITAL SIGNS: Stable GENERAL: Well-developed pleasant in no acute distress. HEENT: No scleral icterus. Extraocular movements grossly intact. Moist buccal mucosa. NECK: Supple without lymphadenopathy. CHEST: Unlabored respirations. Equal bilateral excursions. CARDIOVASCULAR: Regular rate and rhythm. Distal 2+ pulses. ABDOMEN: Soft, nontender, nondistended. MUSCULOSKELETAL: No clubbing, cyanosis, or edema. ASSESSMENT: 1. Colon screen. PLAN: 1. 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 & bloody bowel movement x2, past hx. colon polyps, salivary adenitis History of Any Multi-Drug Resistant Organisms: None Reported Past Surgical History: Cholecystectomy, Hysterectomy, Orthopedic Surgery Additional Past Surgical History / Comment(s): NIAYH, NASAL surgery, SERGIO KNEES ARTHROSCOPY,SERGIO CARPAL TUNNEL, SERGIO WRIST GANGLION CYST x2, CYST REMOVED LT ARM, salivary gland surg. Past Anesthesia/Blood Transfusion Reactions: No Reported Reaction, Family History of Problems w/ Anesthesia Additional Past Anesthesia/Blood Transfusion Reaction / Comment(s): "brother has hard time coming of out anethesia with PONV" Smoking Status: Former smoker - Past Family History Mother Family Medical History: No Reported History Medications and Allergies Home Medications Medication Instructions Recorded Confirmed Type Sertraline [Zoloft] 50 mg PO QAM 03/17/14 04/11/21 History Aspirin [Adult Low Dose Aspirin EC] 81 mg PO DAILY 01/11/16 04/11/21 History Omeprazole 20 mg PO QAM 08/07/17 04/11/21 History Cyclobenzaprine [Flexeril] 10 mg PO DAILY PRN 12/11/19 04/11/21 History Fluticasone Nasal [place] [Flonase 1 spray NASAL DAILY PRN 12/11/19 04/11/21 History Nasal [place]] lisinopriL [Zestril] 5 mg PO QAM 12/11/19 04/11/21 History Ferrous Sulfate [Feosol] 325 mg PO DAILY 04/11/21 04/11/21 History Multivitamins, Thera [Multivitamin 1 tab PO DAILY 04/11/21 04/11/21 History (formulary)] Turmeric Root Extract [Turmeric] 500 mg PO DAILY 04/11/21 04/11/21 History Vit C/Ascorb Sod/Multivit-Min 500 mg PO DAILY 04/11/21 04/11/21 History [Emergen-C 500 mg Chewable Tab] Allergies Allergy/AdvReac Type Severity Reaction Status Date / Time Penicillins Allergy Severe Rash/Hives Verified 04/11/21 12:56 hydrocodone bitartrate Allergy Mild Rash/Hives Verified 04/11/21 12:56 [From Vicodin] adhesive Allergy Rash/Hives Verified 04/11/21 12:56 Latex, Natural Rubber Allergy Rash/Hives Verified 04/11/21 12:56
[2021-04-13 08:17] VITALS: RESP 16; TEMP 96.7
[2021-04-13] MEDS ORDERED: PROPOFOL 10 MG/ML 20 ML VIAL IV ONE (08:30)
[2021-04-13 09:10] VITALS: BP 125/81; PULSE 72
--- NOTE | 2021-04-13 09:15 | P.PCN ---
Date of Procedure: 04/13/21 Description of Procedure: PREOPERATIVE DIAGNOSIS: Rectal bleeding POSTOPERATIVE DIAGNOSIS: History of rectal bleeding Internal and external hemorrhoid, grade 2 OPERATION: Colonoscopy to the cecum, ileocecal valve and appendiceal orifice. SURGEON: Holly Murphy MD. ANESTHESIA: MAC. INDICATIONS: The patient is a 55-year-old female who presents with recent rectal bleeding. Benefits and risks were described and informed consent was obtained. DESCRIPTION OF PROCEDURE: The patient had undergone Sutab prep. The patient had been brought into the operating room and laid in the left lateral decubitus position. After adequate intravenous sedation, the rectum was examined with 2% lidocaine jelly. External hemorrhoids were encountered. The rectal tone was within normal limits. No lesions were palpated in the rectal vault. An Olympus colonoscope was advanced until the cecum, ileocecal valve and appendiceal orifice were clearly viewed. The prep was good. No scattered diverticulosis was encountered. Along the sigmoid colon, mild stricture was identified. Hilar redundant ascending colon was identified requiring abdominal pressure. No colonic polyps were found. No evidence of focal colitis was found. Retroflexion of the scope demonstrated grade 2 internal hemorrhoids without active bleeding or inflammation. The colon was desufflated. The patient had tolerated the procedure well. Withdrawal time was over 6 minutes. FINDINGS: Aronchick preparation quality scale 2 (1-5) Internal hemorrhoids, grade 2 External prolapsed hemorrhoids, grade 2 No arteriovenous malformations. No adenomatous polyps. No focal colitis. RECOMMENDATIONS: Lower endoscopy in 5 years, 2025 Plan - Discharge Summary Discharge Rx Participant: No New Discharge Prescriptions: Continue Sertraline [Zoloft] 50 mg PO QAM Aspirin [Adult Low Dose Aspirin EC] 81 mg PO DAILY Omeprazole 20 mg PO QAM lisinopriL [Zestril] 5 mg PO QAM Fluticasone Nasal [place] [Flonase Nasal [place]] 1 spray NASAL DAILY PRN PRN Reason: allergies Cyclobenzaprine [Flexeril] 10 mg PO DAILY PRN PRN Reason: MUSCLE SPASMS Vit C/Ascorb Sod/Multivit-Min [Emergen-C 500 mg Chewable Tab] 500 mg PO DAILY Multivitamins, Thera [Multivitamin (formulary)] 1 tab PO DAILY Ferrous Sulfate [Iron (65 MG Elemental)] 325 mg PO DAILY Discontinued Turmeric Root Extract [Turmeric] 500 mg PO DAILY Discharge Medication List Sertraline [Zoloft] 50 mg PO QAM 03/17/14 [History] Aspirin [Adult Low Dose Aspirin EC] 81 mg PO DAILY 01/11/16 [History] Omeprazole 20 mg PO QAM 08/07/17 [History] Cyclobenzaprine [Flexeril] 10 mg PO DAILY PRN 12/11/19 [History] Fluticasone Nasal [place] [Flonase Nasal [place]] 1 spray NASAL DAILY PRN 12/11/19 [History] lisinopriL [Zestril] 5 mg PO QAM 12/11/19 [History] Ferrous Sulfate [Iron (65 MG Elemental)] 325 mg PO DAILY 04/11/21 [History] Multivitamins, Thera [Multivitamin (formulary)] 1 tab PO DAILY 04/11/21 [History] Vit C/Ascorb Sod/Multivit-Min [Emergen-C 500 mg Chewable Tab] 500 mg PO DAILY 04/11/21 [History] Follow up Appointment(s)/Referral(s): Holly Murphy MD [STAFF PHYSICIAN] - 04/28/21 Patient Instructions/Handouts: *Surgery [facility] - (Anesthesia) Endoscopy Discharge Instructions, Colonoscopy (DC) Discharge Disposition: HOME SELF-CARE
== END 2021-04-13 10:02 | disposition home or self-care (01) ==
LOC: ORWHC2ENDO 07:24
PROVIDERS: ATTEND Surgery Plastic and Reconstructive Surgery
DX: K64.1 Second degree hemorrhoids (principal); K64.8 Other hemorrhoids; K44.9 Diaphragmatic hernia without obstruction or gangrene; K21.9 Gastro-esophageal reflux disease without esophagitis; M19.90 Unspecified osteoarthritis, unspecified site; G47.30 Sleep apnea, unspecified; K58.9 Irritable bowel syndrome, unspecified; Z86.010 Personal history of colon polyps
CPT/HCPCS: 45378; J2704

== ENCOUNTER → 2021-04-28 | Outpatient (CLI) | payer BC ==
[2021-04-28 14:39] LABS: Partial Thromboplastin Time 25.4 sec (22.0-30.0); Prothrombin Time 10.3 sec (9.0-12.0)
[2021-04-28 19:00] LABS: HCT 40.6 % (37.2-46.3); MCH 31.9 pg (27.0-32.0); MCV 99.5 fL (80.0-97.0); Platelet Count 332 X 10*3/uL (140-440); RBC 4.08 X 10*6/uL (4.10-5.20); RDW 12.6 % (11.5-14.5)
[2021-04-29 05:25] LABS: % Iron Saturation 38.31 (12.00-45.00); ALT 17 U/L (8-44); AST 13 U/L (13-35); African American GFR (CKD) 102.2 (60.0-200.0); Albumin 4.4 g/dL (3.8-4.9); Albumin/Globulin Ratio 1.47 (1.60-3.17); Alkaline Phosphatase 97 U/L (41-126); BUN/Creat Ratio 13.96 Ratio (12.00-20.00); Blood Urea Nitrogen 10.5 mg/dL (9.0-27.0); Calcium 9.5 mg/dL (8.7-10.3); Carbon Dioxide 25.3 mmol/L (20.0-27.5); Chloride 103 mmol/L (96-109); Chol/HDL Ratio 3.14 Ratio; Glucose 103 mg/dL (70-110); Iron 118 ug/dL (50-170); LDL Cholesterol,Calculated 120.5 mg/dL (0.0-131.0); Non-African American GFR(CKD) 88.2 (60.0-200.0); Phosphorus 3.8 mg/dL (2.4-5.1); Potassium 4.6 mmol/L (3.5-5.5); Prealbumin 17.8 mg/dL (18.0-42.0); Sodium 139 mmol/L (135-145); Total Iron Binding Capacity 308 ug/dL (228-460); Total Protein 7.4 g/dL (6.2-8.2); VLDL Calculation 17.16 mg/dL (5.00-40.00)
[2021-04-29 06:18] LABS: Folate, Serum >20.00 ng/mL (4.40-31.00)
[2021-04-29 13:02] LABS: Zinc, Serum 58 ug/dL (60-130)
== END | disposition home or self-care (01) ==
LOC: LABWHC1 13:04
PROVIDERS: ATTEND Surgery Plastic and Reconstructive Surgery
DX: E66.01 Morbid (severe) obesity due to excess calories (principal); E89.1 Postprocedural hypoinsulinemia; D50.8 Other iron deficiency anemias; K90.89 Other intestinal malabsorption; E55.9 Vitamin D deficiency, unspecified; K74.1 Hepatic sclerosis; N19 Unspecified kidney failure; K50.90 Crohn's disease, unspecified, without complications
CPT/HCPCS: 36415; 80053; 80061; 82306; 82525; 82607; 82728; 82746; 83036; 83540; 83550; 83735; 83970; 84100; 84134; 84255; 84425; 84443; 84590; 84630; 85027; 85610; 85730

== ENCOUNTER → 2021-08-16 | Outpatient (CLI) | payer BC ==
--- NOTE | 2021-08-16 16:10 | MR ---
EXAMINATION TYPE: MR lumbar spine wo con DATE OF EXAM: 08/16/2021 COMPARISON: None HISTORY: LBP, BLE radiculopathy. CONTRAST: 0 mL intravenous Gadavist. TECHNIQUE: Multiplanar, multisequence images of the lumbar spine were acquired. FINDINGS: Cord terminates at the L2 level. L5-S1: No significant disc bulge or disc herniation. No spinal canal stenosis. No foraminal stenosi s. Some facet hypertrophy is present at this level.. L4-L5: Disc bulges anterior thecal sac contact. No AP spinal canal stenosis is present. Mild foramina l narrowing is present No spinal canal stenosis. No foraminal stenosis. Facet hypertrophy with lig amentum flavum laxity has mild posterior lateral thecal sac compression.. L3-L4: No significant disc bulge or disc herniation. No spinal canal stenosis. No foraminal stenosi s. Facet hypertrophy is present. L2-L3: Broad-based disc bulges anterior thecal sac flattening. No AP spinal canal stenosis present. N eural foramen are patent. No spinal canal stenosis. No foraminal stenosis. . L1-L2: No significant disc bulge or disc herniation. No spinal canal stenosis. No foraminal stenosi s. . T12-L1: No significant disc bulge or disc herniation. No spinal canal stenosis. No foraminal stenos is. . IMPRESSION: 1. Mild disc bulging L2-3 with mild anterior thecal sac compression. Mild disc bulging is also prese nt L4-5 with anterior thecal sac contact. 2. Multilevel facet hypertrophy and ligamentum flavum laxity appears greatest at L4-5 mild posterior lateral thecal sac contact but no stenosis.
== END | disposition home or self-care (01) ==
LOC: RADMRIMAIN 11:01
PROVIDERS: ATTEND Orthopaedic Surgery
DX: M51.86 Other intervertebral disc disorders, lumbar region (principal)
CPT/HCPCS: 72148

== ENCOUNTER → 2021-10-26 | Outpatient (CLI) | payer MEDICARE, BC ==
--- NOTE | 2021-10-26 09:47 | P.CON ---
Consult Note - . Consult date: 10/26/21 Assessment/Plan:: HISTORY OF PRESENT ILLNESS: 56 yr old female as a referral from Dr Boyle presents today with severe and chronic LBP secondary to disc bulges and facet arthropathy for evaluation. Patient states her pain level is currently 3/10 in intensity, aching, stabbing pain in the lower aspects of her lumbar spine with shooting pain down the lower extremities, left greater than right. Pain escalates as high as 8/10 with activity. Pain is alleviated with medications (Tylenol OTC, Motrin 800 mg), heat, PT which ended in 06/2021, guided home exercise regimen, repositioning and rest. Past Medical History: GERD/Reflux, Osteoarthritis (OA), Sleep Apnea/CPAP/BIPAP Past Surgical History: Hiatal Hernia, L Carotid Artery Blockage, Nasal Surgery, Cholecystectomy, Hysterectomy, BL Knee Arthroscopy, BL Carpal Tunnel Release, BL Wrist Ganglion Cystectomy, LUE Cystectomy, Salivary Gland Surgery Social History: Former Tobacco user, No ETOH abuse, No illicit drug use. Family History: Mother- No Reported History All: See list Meds: See list REVIEW OF ORGAN SYSTEMS: CONSTITUTIONAL: No fevers or chills. No recent weight loss. HEENT: No visual acuity loss, eye pain, difficulties with hearing. No nosebleeds. No difficulty swallowing. RESPIRATORY: Denies any troubles with breathing or dyspnea on exertion. CARDIOVASCULAR: Denies any chest pain, palpitations, or recent heart attacks. GASTROINTESTINAL: Denies fatty food intolerance. Has change in bowel habits and gas bloat. GENITOURINARY: Denies any blood in urine. Has increased urinary frequency. NEUROLOGICAL: + numbness and tingling along the distal extremities. No seizure disorders or headaches. MUSCULOSKELETAL: + back pain SKIN: No skin cancer. No rash. PSYCHIATRIC: Denies current depression or suicidal thoughts. ENDOCRINE: Denies current thyroid disorders. Denies any blood sugar glucose intolerance. HEME/LYMPHATIC: Denies any lumps and bumps around the neck. History of deep venous thrombosis. ALLERGY/IMMUNOLOGY: No immunoglobulin therapy. No immune deficiencies. BREAST: Denies current breast lumps, pain or nipple discharge. Physical Examinations : Constitutional : Cooperative , not in acute distress . HEENT: Neck supple. No Lymphadenopathy. Normal thyroid size . Eyes no ptosis , no icterus, no photophobia . Hearing intact. Normal oropharynx. No Thrush. Respiratory : Chest clear to auscultations bilaterally. No wheezing. No rhonchi. Cardiovascular : Regular rate and rhythm , S1 / S2. No S3 . No S4. Gastrointestinal : Abdomen soft. No tenderness. Bowel sounds x 4. No organomegaly . Genitourinary : Deferred. Neurologic : Cranial nerve II to XII intact. No focal neurological deficits. Psychiatric : alert & oriented x 3. Matching mood & appropriate affect. Judgment & insight intact. Lymphatic No Lymphadenopathy. Musculoskeletal : Cervical Spine Motor strength in the deltoid and biceps: Normal right side. Normal Left side Motor strength biceps and the wrist extensors: Normal right side . Normal left side Motor strength in the triceps muscle: Normal right side. Normal left side Deep tendon reflexes: Normal at the biceps. Normal at Brachioradialis. Normal at triceps Cervical facet loading test: positive bilaterally Spurling test: positive bilaterally Neck distraction test: positive bilaterally Ed sign: positive bilaterally Lumbar spine Motor strength lower extremities ,thigh and legs 5/5 Right side , 5/5 Left side Deep tendon reflexes : Normal Knee Jerk. Normal Ankle Jerk Vertebral body tenderness over L4 Lumbar facet Loading Test: positive Right / positive Left Range of motion of the lumbar spine Flexion 30 degrees, extension 10 degrees Straight Leg Raise test: Left/ Right positive at 30 degree Brady test: positive right / positive left. Severe tenderness over the Sacroiliac joint on the Right / Left sides Gaenslen test: positive bilaterally Seated flexion test: positive bilaterally. Sacral spine : Severe tenderness over the Sacroiliac joint: right side / left side Range of motion: Flexion of the lumbar spine <60 degrees Range of motion: Extension of the lumbar spine <20 degrees Gaenslen's Test positive Armando's Test positive Brady test: positive right side / left side Thigh Thrust Test Sacral Thrust Test Imaging: MRI without contrast of the lumbar spine from 08/16/21 reviewed Assessment/ Plan : Lumbar spondylosis Recommendation of SHAWANDA L4-L5. May need a series of injections, up to 3 within a six-month timeframe, for optimal pain relief. Risks, benefits of procedure discussed and patient verbalized understanding. Denies aspirin or anti- coagulant use or medical history of diabetes. All questions answered. I have spent greater than 50 minutes on patient care today. Dr Clarke was available by phone for the evaluation of this patient. The time was used to review the medical records including relevant urine studies and Prescription history (MAPs), review of the available imaging, evaluation and examination of the patient, coordination of care with the medical staff and if applicable referring physicians, as well as creation of the medical record PQRS Measure Charge Sheet PQRS Narrative: Smoking Status Former smoker Pain Intensity [Lower Back] 2 Home Medications: Ambulatory Orders Sertraline [Zoloft] 50 mg PO QAM 03/17/14 Aspirin [Adult Low Dose Aspirin EC] 81 mg PO DAILY 01/11/16 Omeprazole 20 mg PO BID 08/07/17 Cyclobenzaprine [Flexeril] 10 mg PO DAILY PRN 12/11/19 lisinopriL [Zestril] 5 mg PO QAM 12/11/19 Ferrous Sulfate [Iron (65 MG Elemental)] 325 mg PO DAILY 04/11/21 Multivitamins, Thera [Multivitamin (formulary)] 1 tab PO DAILY 04/11/21 Vit C/Ascorb Sod/Multivit-Min [Emergen-C 500 mg Chewable Tab] 500 mg PO DAILY 04/11/21 Acetaminophen Tab [Tylenol] 650 mg PO Q4H PRN 10/25/21 Ibuprofen [Motrin] 800 mg PO Q6H PRN 10/25/21 Psyllium Husk [Metamucil] 0.4 gm PO DAILY 10/25/21 Turmeric Root Extract [Turmeric] 500 mg PO DAILY 10/25/21
[2021-10-26 10:48] VITALS: BP 129/82; PULSE 72; RESP 18; TEMP 98.2
== END ==
LOC: PNWHC3 08:54
PROVIDERS: ATTEND Specialist
DX: M43.16 Spondylolisthesis, lumbar region (principal); M47.816 Spondylosis without myelopathy or radiculopathy, lumbar region; K21.9 Gastro-esophageal reflux disease without esophagitis; M19.90 Unspecified osteoarthritis, unspecified site; Z79.899 Other long term (current) drug therapy; Z87.891 Personal history of nicotine dependence; Z88.0 Allergy status to penicillin; Z88.5 Allergy status to narcotic agent; Z91.040 Latex allergy status; Z91.048 Other nonmedicinal substance allergy status
CPT/HCPCS: 99211

== ENCOUNTER 2021-11-15 06:57 | Day surgery (SDC) | payer MEDICARE, BC ==
[2021-11-11 14:49] VITALS: BMI 40.4
[2021-11-15 07:30] VITALS: TEMP 97.8
[2021-11-15] MEDS ORDERED: MIDAZOLAM 2 MG/2 ML VIAL ONE (07:57)
[2021-11-15] MEDS ORDERED: fentaNYL (PF) 50 MCG/ML 2 ML AMP ONE (07:57)
[2021-11-15] MEDS ORDERED: IOPAMIDOL M200 10 ML VIAL ONE (07:57)
[2021-11-15] MEDS ORDERED: methylPREDNISolone ACETATE 80 MG/ML 1 ML VIAL ONE (07:57)
--- NOTE | 2021-11-15 08:13 | P.PCN ---
Date of Procedure: 11/15/21 Procedure(s) Performed: PREOPERATIVE DIAGNOSIS: 1- Lumbar Degenerative Disc Diseases 2-Lumbar spondylosis with Facet arthropathy without myelopathy POSTOPERATIVE DIAGNOSIS: Same as preop diagnosis. PROCEDURE 1. Lumbar epidural steroid injection under fluoroscopic guidance at the L4-5 level. (Fluoroscopy imaging was available in radiology department) 2. Lumbar epidurogram. ANESTHESIA: Local with 1% lidocaine 3 ml and , moderate sedation with intravenous Versed 2 mg ,and fentanyle 100 Mcg EBL: Minimal PROCEDURE INDICATION: The patient with low back pain and radiculitis symptoms unresponsive to conservative treatment. Fluoroscopy was used to optimize visualization of the needle placement and to maximize safety. PROCEDURE DESCRIPTION / TECHNIQUE: The patient was seen and identified in the preoperative area. Risks, benefits, complications including but not limited to infections ,bleeding ,allergic reaction to the medications ,nerve damage and not complete pain releife , and alternatives were discussed with the patient. The patient agreed to proceed with the procedure and signed the consent. IV was started, and vital signs were stable. Patient was taken to the OR and time out was completed. The patient was placed in the prone position on procedure table and a pillow was placed under the abdomen to reduce lumbar lordosis. The lumbosacral area was prepped and draped in the usual sterile fashion.ere closely monitored during the procedure. C onscious sedation was used during the procedure to decrease patients anxiety. Vital signs was monitered during the entire procedure. Using anterior-posterior fluoroscopy, the L4-5 interlaminar space was identified and the skin over this site was marked and then infiltrated with 1% lidocaine subcutaneously. Subsequently, a 20-gauge Tuohy epidural needle was inserted and advanced toward the epidural space using the ``Loss of resistance technique and guided by AP and lateral fluoroscopy. The correct needle position in the epidural space was verified with the injection of 2 mL of the water soluble contrast dye Isovue 200 contrast and observing an excellent epidurogram with the epidural spread of the dye, after negative aspiration for blood and CSF and in the absence of paresthesias. Again after negative aspiration, a 6 ml mixture containing 80 mg of Depo-medrol , and 2 ml of preservative free Normal Saline, and 2 ml of preservative free lidocaine 1% solution was injected and a washout of epidurogram was seen. Needle was withdrawn intact, skin was cleansed, and bandages were applied. COMPLICATIONS: None DISPOSITION / PLANS: The patient was placed in a supine position and transferred to the recovery area in a stable condition for observation. There was no evidence of lower extremity motor or sensory deficit after the procedure. Patient was discharged from the recovery room after meeting discharge criteria. Home discharge instructions were given to the patient by the staff. The patient was reexamined prior to discharge. The patient will schedule a follow up in the clinic in 2-4 weeks.
[2021-11-15] MEDS ORDERED: IV FLUID CONTINUATION 1,000 ML IV ONE (08:15)
[2021-11-15 08:39] VITALS: BP 117/79; PULSE 69; RESP 15
--- NOTE | 2021-11-15 13:51 | FL ---
EXAMINATION TYPE: FL guided pain mgmt statistic DATE OF EXAM: 11/15/2021 HISTORY: Fluoroscopy time 2 seconds of fluoroscopy provided. IMPRESSION: 1. Fluoroscopy time.
== END 2021-11-15 08:55 | disposition home or self-care (01) ==
LOC: ORPAIN 06:57
PROVIDERS: ATTEND Specialist
DX: M51.16 Intervertebral disc disorders with radiculopathy, lumbar region (principal); M47.26 Other spondylosis with radiculopathy, lumbar region
CPT/HCPCS: 62323; J2250; J1040; J3010; Q9966; 99152

== ENCOUNTER 2021-12-22 11:48 | Day surgery (SDC) | payer MEDICARE, BC ==
[~2021-12-22 11:48] MED LIST changes: -LIDOCAINE 1% (10MG/ML) FOR IV START INTRADERMA PRN
[2021-12-22 12:13] VITALS: TEMP 97
[2021-12-22] MEDS ORDERED: IOPAMIDOL M200 10 ML VIAL ONE (12:43)
[2021-12-22] MEDS ORDERED: fentaNYL (PF) 50 MCG/ML 2 ML AMP ONE (12:43)
[2021-12-22] MEDS ORDERED: methylPREDNISolone ACETATE 40 MG/ML 1 ML VIAL ONE (12:43)
[2021-12-22] MEDS ORDERED: MIDAZOLAM 2 MG/2 ML VIAL ONE (12:43)
--- NOTE | 2021-12-22 12:52 | P.PCN ---
Date of Procedure: 12/22/21 Procedure(s) Performed: L4-L5 epidural steroid injection Description of Procedure: PREOPERATIVE DIAGNOSIS: lumbar radiculopathy POSTOPERATIVE DIAGNOSIS: Lumbar radiculopathy PROCEDURE 1. Lumbar epidural steroid injection under fluoroscopic guidance at the L4-L5 level. 2. Lumbar epidurogram. Imaging: Fluoroscopy was used, images where saved to the medical record ANESTHESIA: Medication Administered by: Nurse Sedation Type: Moderate sedation Sedation Supervision start time: 1246 Sedation Supervision end time: 1253 EBL: Minimal PROCEDURE INDICATION: The patient with low back pain and radiculitis symptoms unresponsive to conservative treatment. Fluoroscopy was used to optimize visualization of the needle placement and to maximize safety. PROCEDURE DESCRIPTION / TECHNIQUE: The patient was seen and identified in the preoperative area. Risks, benefits, complications including but not limited to infections ,bleeding ,allergic reaction to the medications, nerve damage and incomplete pain relief , as well as alternatives to the procedure were discussed with the patient. The patient agreed to proceed with the procedure and signed the consent. IV was started, and vital signs were stable. Patient was taken to the OR and time out was completed. The patient was placed in the prone position on procedure table and a pillow was placed under the abdomen to reduce lumbar lordosis. The lumbosacral area was prepped and draped in the usual sterile fashion. Vitals were closely monitored during the procedure. Using anterior-posterior fluoroscopy, the L4-L5 interlaminar space was identified and the skin over this site was marked and then infiltrated with 1% lidocaine subcutaneously. Subsequently, a 20-gauge Tuohy epidural needle was inserted and advanced toward the epidural space using the Loss of resistance technique and guided by AP and lateral fluoroscopy. The correct needle position in the epidural space was verified with the injection of 1 mL of Omnipaque 180 contrast to observe an acceptable epidurogram, after negative aspiration for blood and CSF and in the absence of paresthesias. Again after negative aspiration, a 3 ml mixture containing 40mg of depomedrol and 2 ml of preservative free Normal Saline was injected and a washout of epidurogram was seen. Needle was withdrawn intact, skin was cleansed, and bandages were applied. COMPLICATIONS: None DISPOSITION / PLANS: The patient was placed in a supine position and transferred to the recovery area in a stable condition for observation. There was no evidence of lower extremity motor or sensory deficit after the procedure. Patient was discharged from the recovery room after meeting discharge criteria. Home discharge instructions were given to the patient by the staff. The patient was reexamined prior to discharge. The patient will follow up as directed.
[2021-12-22] MEDS ORDERED: IV FLUID CONTINUATION 1,000 ML IV ONE (12:55)
[2021-12-22 13:03] VITALS: BP 109/72
[2021-12-22 13:15] VITALS: PULSE 78; RESP 17
--- NOTE | 2021-12-22 13:21 | FL ---
Fluoroscopy HISTORY: Pain 1 seconds fluoroscopy time supplied to the referring clinician. 1 intraoperative C-arm images docume nt the procedure. See dictated report from anesthesia.
== END 2021-12-22 13:30 | disposition home or self-care (01) ==
LOC: ORPAIN 11:48
PROVIDERS: ATTEND Hospitalist
DX: M54.16 Radiculopathy, lumbar region (principal); Z88.0 Allergy status to penicillin; Z88.5 Allergy status to narcotic agent; Z91.040 Latex allergy status; Z91.09 Other allergy status, other than to drugs and biological substances; Z79.82 Long term (current) use of aspirin; Z79.899 Other long term (current) drug therapy; Z87.891 Personal history of nicotine dependence
CPT/HCPCS: 62323; J2250; J1030; J3010; Q9966

== ENCOUNTER → 2022-01-16 | Outpatient (CLI) | payer MEDICARE, BC ==
[2022-01-16 11:28] VITALS: BP 123/75; PULSE 80; RESP 18; TEMP 98.4
--- NOTE | 2022-01-16 12:38 | P.PAINPG ---
PQRS Measure Charge Sheet Comment: A 56 yr old female with a history of severe and chronic low back pain secondary to lumbar degenerative disc diseases and lumbar spondylosis with facet arthropathy presents today for evaluation s/p EDIN L4-L5 #2. Pt states she experienced 80% pain relief x 3 wks s/p procedure w the 1st and 30% relief w 2nd one. Pain level is currently at 5/10 in intensity, constant, localized in lower lumbar spine, dull/ stabbing in character w shooting towards the RLE. Pain is provoked as high as 7/10 by sitting/standing for 20 min or more. Pain is alleviated with heat, ice, PT x 6 wks in Jun 2021, medications (Ibuprofen), topicals, repositioning and rest. Interventional pain procedures completed include EDIN L4-L5 x2 Patient is currently on Ibuprofen, Biofreeze gel Patient denies any side effects of the medication(s), denies excessive drowsiness or sleepiness, denies suicidal ideation and reports that the current pain medication is helping to control the pain and improve activities of daily living. Patient denies any motor or sensory deficits. Patient denies any fever or night sweats, denies any change in the bowel movements or urination. Physical Examination: -Constitutional: Cooperative. Not in acute distress . - Neurologic: Cranial nerve II to XII intact. No focal neurological deficits. - Psychatric: Alert & oriented x 3. Matching mood & appropriate affect. Judgment and insight intact. - Musculoskeletal: Cervical spine: Muscle bulk/ tone/ strength in the bilateral upper extremities normal Vertebral body tenderness to palpation over Spurling test positive Distraction test positive Facet loading test positive Thoracic spine Muscle bulk / tone/ strength in the bilateral paraspinal muscles normal Vertebral body tender to palpation over Facet loading test positive Lumbar spine: Motor bulk/ tone/ strength lower extremities , thigh and legs : 5/5 Deep tendon reflexes : Normal Knee Jerk. Normal Ankle Jerk . Vertebral body tenderness to palpation over Jump Reflex w palpation over R L4-L5, L5-S1 Lumbar Facet Loading Test positive Straight Leg Raise: positive at 30 degrees right side/ left side Gaenslen's Test positive Sacral spine : Severe tenderness over the Sacroiliac joint: right side / left side Range of motion: Flexion of the lumbar spine <60 degrees Range of motion: Extension of the lumbar spine <20 degrees Gaenslen's Test positive Armando's Test positive Brady test: positive right side / left side Thigh Thrust Test Sacral Thrust Test Assessment and plan: Chronic low back pain secondary to lumbar degenerative disc disease , lumbar spondylosis with facet arthropathy without myelopathy Recommendation of BL facet blocks of the medial branches L4-L5, L5-S1 #1. May need a series of injections, up until RFA, for optimal pain relief. Risks, benefits of procedure discussed and pt verbalized understanding. Admits to anticoagulant use and denies medical history of diabetes. Protocol for discontinuation/ continuation of medications facundo procedure discussed. All patient questions answered MAPS reviewed and it was appropriate. I have spent less than 30 minutes on patient care today. Dr Clarke was available by phone for the evaluation of this patient. The time was used to review the medical records including relevant urine studies and Prescription hi story (MAPs), review of the available imaging, evaluation and examination of the patient, coordination of care with the medical staff and if applicable referring physicians, as well as creation of the medical record - Pain Location Bilateral Lower Back Non-Pharmacological Interventions: Heat, Ice, Inactivity, Physical Therapy Pharmacological Interventions: Epidural, Prophylactic Medication, Topical Medication PQRS Narrative: Smoking Status Former smoker Hx Alcohol Use (MH) No Home Medications: Ambulatory Orders Sertraline [Zoloft] 50 mg PO QAM 03/17/14 Aspirin [Adult Low Dose Aspirin EC] 81 mg PO DAILY 01/11/16 Omeprazole 20 mg PO BID 08/07/17 Cyclobenzaprine [Flexeril] 10 mg PO DAILY PRN 12/11/19 lisinopriL [Zestril] 5 mg PO QAM 12/11/19 Ferrous Sulfate [Iron (65 MG Elemental)] 325 mg PO DAILY 04/11/21 Multivitamins, Thera [Multivitamin (formulary)] 1 tab PO DAILY 04/11/21 Vit C/Ascorb Sod/Multivit-Min [Emergen-C 500 mg Chewable Tab] 500 mg PO DAILY 04/11/21 Acetaminophen Tab [Tylenol] 650 mg PO Q4H PRN 10/25/21 Ibuprofen [Motrin] 800 mg PO Q6H PRN 10/25/21 Psyllium Husk [Metamucil] 0.4 gm PO DAILY 10/25/21 Turmeric Root Extract [Turmeric] 500 mg PO DAILY 10/25/21 Controlled Substance Measures - Controlled Substance Measures Is patient prescribed a controlled substance at discharge?: No
== END ==
LOC: PNWHC3 10:51
PROVIDERS: ATTEND Specialist
DX: M51.36 Other intervertebral disc degeneration, lumbar region (principal); M47.816 Spondylosis without myelopathy or radiculopathy, lumbar region; G89.29 Other chronic pain; Z87.891 Personal history of nicotine dependence; Z88.0 Allergy status to penicillin; Z88.5 Allergy status to narcotic agent; Z91.048 Other nonmedicinal substance allergy status; Z91.040 Latex allergy status
CPT/HCPCS: 99211

== ENCOUNTER 2022-03-10 10:00 | Day surgery (SDC) | payer MEDICARE, BC ==
[2022-03-10 10:22] VITALS: RESP 16; TEMP 96.7
[2022-03-10] MEDS ORDERED: LIDOCAINE 1% (10MG/ML) FOR IV START INTRADERMA ONE (10:25)
[2022-03-10] MEDS ORDERED: TRIAMCINOLONE ACETONIDE 40 MG/ML 1 ML VIAL ONE (10:50)
[2022-03-10] MEDS ORDERED: ROPIVACAINE 5 MG/ML 20 ML AMPULE ONE (10:50)
[2022-03-10] MEDS ORDERED: fentaNYL (PF) 50 MCG/ML 2 ML AMP ONE (10:50)
[2022-03-10] MEDS ORDERED: MIDAZOLAM 2 MG/2 ML VIAL ONE (10:50)
[2022-03-10] MEDS ORDERED: IV FLUID CONTINUATION 1,000 ML IV ONE (11:04)
--- NOTE | 2022-03-10 11:05 | P.PCN ---
Date of Procedure: 03/10/22 Description of Procedure: Pre- and Post-operative Diagnosis: Lumbar facet arthropathy, and lumbar spon dylosis without myelopathy. Procedure: #1 right side Diagnostic Medial Branch Block at Lumbar 4/5 and #1 right side diagnostic dorsal ramus block at Lumbar 5/ sacral ala levels (total 2 levels) Surgeon: Hesham June Anesthesia: Local: 1% Lidocaine, IV sedation : Versed 2 mg and fentanyl 100 g. Complications: None EBL: None Specimen removed: None Fluoroscopic image: Saved to patient electronic medical records. Indications for Procedure: The patient is well known to pain clinic for his chronic low back pain management. The lumbar facet loading test was positive with a clinical diagnosis of lumbar facet arthropathy. Failed with conservative therapy. Came here for interventional help for better pain relief. Procedure and Findings: The patient was seen and examined. The written informed consent was obtained after explaining the risks, benefits and alternatives of the procedure to the patient. The patient was brought to the procedure room and was placed in the prone position on the operating table table. A pillow was placed under the abdomen to reduce lumbar lordosis. Standard anesthesia monitoring was done through out the procedure. The skin preparation was done with ChloraPrep, and draping was done in usual sterile fashion. Sterile technique was observed throughout the procedure. Under fluoroscopic guidance, right the Lumbar 4, 5 and Sacral ala levels were identified in the AP view. For lumbar L4, and L5 levels the targeting area of superior articular process, and close to the most medial and superior aspect of transverse process identified, marked. 1ml of 1% Lidocaine was used with a 25 gauge needle to achieve adequate local anesthesia of the skin and subcutaneous tissue at each level. A 22 gauge 3.5 inch spinal needle was placed and advanced targeting area which was close to the most medial and superior aspect of the transverse process. For Lumbar 5/ sacral ala level, fluoroscope was used in the anteroposterior view, and the needle tip was placed at the superior and most medial part of sacral ala close to the superior articular process. A bony contact was obtained and needle tip position was confirmed at anteroposterior view. No paresthesia was noted. A negative aspiration was confirmed. 1 ml solution per level was injected, the block solution containing 2 ml of 0.5% rop ivacaine preservative-free solution mixed with 40 MG of Kenalog. The needles were removed intact. Lumbar area was cleaned and bandages were applied. Disposition : The patient tolerated the procedure very well. The patient was transferred to the recovery room and remained stable until discharged home. The patient was given detailed discharge instructions for infection, bleeding, and increased pain at the injection site, and was advised to seek immediate medical attention should significant side effects develop. The patient will be scheduled with Pain Clinic within 4 weeks for repeat procedure if it's helpful.
[2022-03-10 11:36] VITALS: BP 100/54; PULSE 86
--- NOTE | 2022-03-10 12:08 | FL ---
Intraoperative/procedural fluoroscopic services were provided. Total fluoroscopy time is 5 seconds wi th a total of 2 submitted images to PACS. Please see the operative/procedural note for further detail s.
== END 2022-03-10 11:38 | disposition home or self-care (01) ==
LOC: ORPAIN 10:00
DX: M47.816 Spondylosis without myelopathy or radiculopathy, lumbar region (principal); G89.29 Other chronic pain; I10 Essential (primary) hypertension; G47.33 Obstructive sleep apnea (adult) (pediatric); K21.9 Gastro-esophageal reflux disease without esophagitis; K58.9 Irritable bowel syndrome, unspecified; Z79.899 Other long term (current) drug therapy
CPT/HCPCS: 64493; 64494; J2250; J3301; J3010; J2795

== ENCOUNTER → 2022-03-30 | Outpatient (CLI) | payer MEDICARE, BC ==
[2022-03-30 11:30] VITALS: BP 134/88; PULSE 100; RESP 16
--- NOTE | 2022-04-03 13:26 | P.PAINPG ---
PQRS Measure Charge Sheet Comment: A 56 yr old female with a history of severe and chronic low back pain secondary to lumbar degenerative disc diseases and lumbar spondylosis with facet arthropathy without myelopathy presents today for evaluation s/p R MBB L3-5 #1. Pt states she experienced 90 % pain relief x 4 days s/p procedure. Pain level is currently at 7/10 in intensity, constant, localized in the R lower lumbar spine, burning in character w shooting towards the R knee. Pain is provoked by standing/ walking for periods of 20min or more. Pain is alleviated with PT in Jun 2021 without relief, home exercise regimen as tolerated, heat, ice, weighted heating pad, meds (Motrin), topicals, repositioning, laying supine and rest. Interventional pain procedures completed include R MBB L3-L5 x1 Patient is currently on Motrin 800mg Patient denies any side effects of the medication(s), denies excessive drowsiness or sleepiness, denies suicidal ideation and reports that the current pain medication is helping to control the pain and improve activities of daily living. Patient denies any motor or sensory deficits. Patient denies any fever or night sweats, denies any change in the bowel movements or urination. Physical Examination: -Constitutional: Cooperative. Not in acute distress . - Neurologic: Cranial nerve II to XII intact. No focal neurological deficits. - Psychatric: Alert & oriented x 3. Matching mood & appropriate affect. Judgment and insight intact. - Musculoskeletal: Cervical spine: Muscle bulk/ tone/ strength in the bilateral upper extremities normal Vertebral body tenderness to palpation over Spurling test positive Distraction test positive Facet loading test positive Thoracic spine Muscle bulk / tone/ strength in the bilateral paraspinal muscles normal Vertebral body tender to palpation over Facet loading test positive Lumbar spine: Motor bulk/ tone/ strength lower extremities , thigh and legs : 5/5 Deep tendon reflexes : Normal Knee Jerk. Normal Ankle Jerk . Vertebral body tenderness to palpation over Lumbar Facet Loading Test positive TTP over R L4-L5, L5-S1 facets Straight Leg Raise: positive at 30 degrees right side/ left side Gaenslen's Test positive Sacral spine : Severe tenderness over the Sacroiliac joint: right side / left side Range of motion: Flexion of the lumbar spine <60 degrees Range of motion: Extension of the lumbar spine <20 degrees Gaenslen's Test positive Armando's Test positive Brady test: positive right side / left side Thigh Thrust Test Sacral Thrust Test Assessment and plan: Chronic low back pain secondary to lumbar degenerative disc disease , lumbar spondylosis with facet arthropathy without myelopathy Recommendation of R MBB L4-L5, L5-S1 #2. May need a series, up until RFA, for optimal pain relief. Risks, benefits of procedure discussed and pt verbalized understanding. Denies anticoagulant use or medical history of diabetes. All patient questions answered I have spent less than 30 minutes on patient care today. Dr Clarke was available by phone for the evaluation of this patient. The time was used to review the medical records including relevant urine studies and Prescription history (MAPs), review of the available imaging, evaluation and examination of the patient, coordination of care with the medical staff and if applicable referring physicians, as well as creation of the medical record PQRS Narrative: Smoking Status Former smoker Hx Alcohol Use (MH) No Home Medications: Ambulatory Orders Sertraline [Zoloft] 50 mg PO QAM 03/17/14 Aspirin [Adult Low Dose Aspirin EC] 81 mg PO DAILY 01/11/16 Omeprazole 20 mg PO BID 08/07/17 Cyclobenzaprine [Flexeril] 10 mg PO DAILY PRN 12/11/19 lisinopriL [Zestril] 5 mg PO QAM 12/11/19 Ferrous Sulfate [Iron (65 MG Elemental)] 325 mg PO DAILY 04/11/21 Multivitamins, Thera [Multivitamin (formulary)] 1 tab PO DAILY 04/11/21 Vit C/Ascorb Sod/Multivit-Min [Emergen-C 500 mg Chewable Tab] 500 mg PO DAILY 04/11/21 Acetaminophen Tab [Tylenol] 650 mg PO Q4H PRN 10/25/21 Ibuprofen [Motrin] 800 mg PO Q6H PRN 10/25/21 Psyllium Husk [Metamucil] 0.4 gm PO DAILY 10/25/21 Turmeric Root Extract [Turmeric] 500 mg PO DAILY 10/25/21 Controlled Substance Measures - Controlled Substance Measures Is patient prescribed a controlled substance at discharge?: No
== END ==
LOC: PNWHC3 10:51
PROVIDERS: ATTEND Specialist
DX: M47.816 Spondylosis without myelopathy or radiculopathy, lumbar region (principal); M51.36 Other intervertebral disc degeneration, lumbar region; G89.29 Other chronic pain; Z88.0 Allergy status to penicillin; Z88.5 Allergy status to narcotic agent; Z91.048 Other nonmedicinal substance allergy status; Z91.040 Latex allergy status; Z87.891 Personal history of nicotine dependence
CPT/HCPCS: 99211

== ENCOUNTER 2022-05-05 12:54 | Day surgery (SDC) | payer MEDICARE, BC ==
[2022-05-05 13:32] VITALS: RESP 16; TEMP 97.8
[2022-05-05] MEDS ORDERED: fentaNYL (PF) 50 MCG/ML 2 ML AMP ONE (13:52)
[2022-05-05] MEDS ORDERED: MIDAZOLAM 2 MG/2 ML VIAL ONE (13:52)
[2022-05-05] MEDS ORDERED: TRIAMCINOLONE ACETONIDE 40 MG/ML 1 ML VIAL ONE (13:52)
[2022-05-05] MEDS ORDERED: ROPIVACAINE 5 MG/ML 20 ML AMPULE ONE (13:52)
--- NOTE | 2022-05-05 14:04 | P.PCN ---
Date of Procedure: 05/05/22 Description of Procedure: Pre- and Post-operative Diagnosis: Lumbar facet arthropathy, and lumbar spondylosis without myelopathy. Procedure: #2 right-sided Diagnostic Medial Branch Block at Lumbar 4/5 and #2 right-sided diagnostic dorsal ramus block at Lumbar 5/ sacral ala levels (total 2 levels) Surgeon: Hesham June Anesthesia: Local: 1% Lidocaine, IV sedation : Versed 1 mg and fentanyl 50 g. Complications: None EBL: None Specimen removed: None Fluoroscopic image: Saved to patient electronic medical records. Indications for Procedure: The patient is well known to pain clinic for his chronic low back pain management. The lumbar facet loading test was positive with a clinical diagnosis of lumbar facet arthropathy. Failed with conservative therapy. Patient had a great pain relief with the previous lumbar medial branch block. Came here for interventional help for better pain relief. Procedure and Findings: The patient was seen and examined. The written informed consent was obtained after explaining the risks, benefits and alternatives of the procedure to the patient. The patient was brought to the procedure room and was placed in the prone position on the operating table table. A pillow was placed under the abdomen to reduce lumbar lordosis. Standard anesthesia monitoring was done through out the procedure. The skin preparation was done with ChloraPrep X1, and draping was done in usual sterile fashion. Sterile technique was observed throughout the procedure. Under fluoroscopic guidance, right-sided the Lumbar 4, 5 and Sacral ala levels were identified in the AP view. For lumbar L4, and L5 levels the targeting area of superior articular process, and close to the most medial and superior aspect of transverse process identified, marked. 1ml of 1% Lidocaine was used with a 25 gauge needle to achieve adequate local anesthesia of the skin and subcutaneous tissue at each level. A 22 gauge 5 inch spinal needle was placed and advanced targeting area which was close to the most medial and superior aspect of the transverse process. For Lumbar 5/ sacral ala level, fluoroscope was used in the anteroposterior view, and the needle tip was placed at the superior and most medial part of sacral ala close to the superior articular process. A bony contact was obtained and needle tip position was confirmed at anteroposterior view. No paresthesia was noted. A negative aspiration was confirmed. 1 ml solution per level was injected, the block solution containing 2 ml of 0.5% ropivacaine preservative-free solution mixed with 40 MG of Kenalog. The needles were removed intact. Lumbar area was cleaned and bandages were applied. Disposition : The patient tolerated the procedure very well. The patient was transferred to the recovery room and remained stable until discharged home. The patient was given detailed discharge instructions for infection, bleeding, and increased pain at the injection site, and was advised to seek immediate medical attention should significant side effects develop. The patient will be scheduled with Pain Clinic within 4 weeks for lumbar radiofrequency ablation if it's helpfu
[2022-05-05] MEDS ORDERED: IV FLUID CONTINUATION 1,000 ML IV ONE (14:17)
[2022-05-05 14:27] VITALS: BP 102/64; PULSE 76
--- NOTE | 2022-05-05 14:54 | FL ---
EXAMINATION TYPE: FL guided pain mgmt statistic DATE OF EXAM: 05/05/2022 HISTORY: Fluoroscopy time 7 seconds of fluoroscopy provided. IMPRESSION: 1. Fluoroscopy time.
== END 2022-05-05 14:42 | disposition home or self-care (01) ==
LOC: ORPAIN 12:54
DX: M47.816 Spondylosis without myelopathy or radiculopathy, lumbar region (principal); G89.29 Other chronic pain; I10 Essential (primary) hypertension; E78.00 Pure hypercholesterolemia, unspecified; M19.90 Unspecified osteoarthritis, unspecified site; G47.33 Obstructive sleep apnea (adult) (pediatric); K21.9 Gastro-esophageal reflux disease without esophagitis; Z87.19 Personal history of other diseases of the digestive system; Z88.0 Allergy status to penicillin; Z91.040 Latex allergy status; Z88.5 Allergy status to narcotic agent; Z91.048 Other nonmedicinal substance allergy status; Z79.82 Long term (current) use of aspirin; Z79.1 Long term (current) use of non-steroidal anti-inflammatories (NSAID); Z79.899 Other long term (current) drug therapy
CPT/HCPCS: 64493; 64494; J2250; J3301; J3010; J2795

== ENCOUNTER → 2022-05-25 | Outpatient (CLI) | payer MEDICARE, BC ==
--- NOTE | 2022-05-25 15:28 | P.PAINPG ---
PQRS Measure Charge Sheet Comment: A 56 yr old female with a history of severe and chronic low back pain secondary to lumbar DDD and spondylosis with facet arthropathy without myelopathy presents today for evaluation s/p R facet block of the medial branches L4-L5, L5-S1 #2. Pt states she experienced 100 % pain relief on day 3 for 24hrs s/p procedure. Pain level is currently at 8 /10 in intensity, constant, localized in the R lumbar spine, pressure like in character w shooting towards the RLE. Pain is provoked by standing/ walking for periods of 20 min or more. Pain is alleviated with medications (Ibu 800mg), injections, topicals, heat, PT integrated w massage x 6 wks in Jun 2021, repositioning and rest. Interventional pain procedures completed include R MBB L3-L5 x2, EDIN L4-L5 x2. Patient is currently on Ibu 800mg Patient denies any side effects of the medication(s), denies excessive drowsiness or sleepiness, denies suicidal ideation and reports that the current pain medication is helping to control the pain and improve activities of daily living. Patient denies any motor or sensory deficits. Patient denies any fever or night sweats, denies any change in the bowel movements or urination. Physical Examination: -Constitutional: Cooperative. Not in acute distress . - Neurologic: Cranial nerve II to XII intact. No focal neurological deficits. - Psychatric: Alert & oriented x 3. Matching mood & appropriate affect. Judgment and insight intact. - Musculoskeletal: Cervical spine: Muscle bulk/ tone/ strength in the bilateral upper extremities normal Vertebral body tenderness to palpation over Spurling test positive Distraction test positive Facet loading test positive Thoracic spine Muscle bulk / tone/ strength in the bilateral paraspinal muscles normal Vertebral body tender to palpation over Facet loading test positive Lumbar spine: Motor bulk/ tone/ strength lower extremities , thigh and legs : 5/5 Deep tendon reflexes : Normal Knee Jerk. Normal Ankle Jerk . Vertebral body tenderness to palpation over Lumbar Facet Loading Test positive TTP over R L4-L5, L5-S1 facets Straight Leg Raise: positive at 30 degrees right side/ left side Gaenslen's Test positive Sacral spine : Severe tenderness over the Sacroiliac joint: right side / left side Range of motion: Flexion of the lumbar spine <60 degrees Range of motion: Extension of the lumbar spine <20 degrees Gaenslen's Test positive Brady test: positive right side / left side Thigh Thrust Test Sacral Thrust Test Assessment and plan: Chronic low back pain secondary to lumbar degenerative disc disease, spondylosis with facet arthropathy without myelopathy Recommendation of R RFA L4-L5, L5-S1. Pt exhibited sufficient and substantial pain relief w prior facet block of the medial branch procedures. Risks, benefits of procedure discussed and pt verbalized understanding. Admits to anticoagulant use or medical history of diabetes. Protocol for discontinuation/ continuation of medications facundo procedure discussed. All patient questions answered I have spent less than 30 minutes on patient care today. Dr Clarke was available by phone for the evaluation of this patient. The time was used to review the medical records including relevant urine studies and Prescription history (MAPs), review of the available imaging, evaluation and examination of the patient, coordination of care with the medical staff and if applicable referring physicians, as well as creation of the medical record PQRS Narrative: Smoking Status Former smoker Hx Alcohol Use (MH) No Home Medications: Ambulatory Orders Sertraline [Zoloft] 50 mg PO QAM 03/17/14 Aspirin [Adult Low Dose Aspirin EC] 81 mg PO DAILY 01/11/16 Omeprazole 20 mg PO BID 08/07/17 Cyclobenzaprine [Flexeril] 10 mg PO DAILY PRN 12/11/19 lisinopriL [Zestril] 5 mg PO QAM 12/11/19 Ferrous Sulfate [Iron (65 MG Elemental)] 325 mg PO DAILY 04/11/21 Multivitamins, Thera [Multivitamin (formulary)] 1 tab PO DAILY 04/11/21 Vit C/Ascorb Sod/Multivit-Min [Emergen-C 500 mg Chewable Tab] 500 mg PO DAILY 04/11/21 Acetaminophen Tab [Tylenol] 650 mg PO Q4H PRN 10/25/21 Ibuprofen [Motrin] 800 mg PO Q6H PRN 10/25/21 Psyllium Husk [Metamucil] 0.4 gm PO DAILY 10/25/21 Turmeric Root Extract [Turmeric] 500 mg PO DAILY 10/25/21 Atorvastatin [Lipitor] 20 mg PO DAILY 05/02/22 Controlled Substance Measures - Controlled Substance Measures Is patient prescribed a controlled substance at discharge?: No
[2022-05-25 15:51] VITALS: BP 120/83; PULSE 94; RESP 18; TEMP 98.3
== END ==
LOC: PNWHC3 11:07
PROVIDERS: ATTEND Specialist
DX: M47.816 Spondylosis without myelopathy or radiculopathy, lumbar region (principal); M51.36 Other intervertebral disc degeneration, lumbar region; G89.29 Other chronic pain; Z87.891 Personal history of nicotine dependence; Z79.82 Long term (current) use of aspirin; Z88.0 Allergy status to penicillin; Z88.5 Allergy status to narcotic agent; Z91.048 Other nonmedicinal substance allergy status; Z91.040 Latex allergy status
CPT/HCPCS: 99211

== ENCOUNTER → 2022-06-20 | Outpatient (CLI) | payer MEDICARE, BC ==
--- NOTE | 2022-06-23 08:20 | MM ---
Reason for Exam: Screening (asymptomatic). Last mammogram was performed 1 year(s) and 1 month(s) ago. Patient History: Menarche at age 10. First Full-Term at age 14. Hysterectomy at age 33. Postmenopausal. Estrogen for 6 years, 5 months, from age 35 until age 42. Hormonal Contraceptives for 5 years from age 15 until age 26. Sister had ovarian cancer at or over age 50. Risk Values: Bita 5 year model risk: 1.0%. NCI Lifetime model risk: 5.6%. Prior Study Comparison: 11/11/2015 Screening Mammogram, [facility]. 02/05/2017 Bilateral Screening Mammogram, [facility]. 02/14/2017 Left Diagnostic Mammogram, [facility]. 12/22/2018 Bilateral MG 3D screening mammo w/cad, [facility]. 04/25/2021 Bilateral MG 3D screening mammo w/cad, [facility]. Tissue Density: There are scattered fibroglandular densities. Findings: Analyzed By CAD. There is no suspicious group of microcalcifications or new suspicious mass in either breast. Overall Assessment: Negative, BI-RAD 1 Management: Screening Mammogram of both breasts in 1 year. A clinical breast exam by your physician is recommended on an annual basis and results should be correlated with mammographic findings. Electronically signed and approved by: Chandan Morrison M.D. Radiologis
== END | disposition home or self-care (01) ==
LOC: RADMAMWWP 11:03
PROVIDERS: ATTEND Obstetrics & Gynecology
DX: Z12.31 Encounter for screening mammogram for malignant neoplasm of breast (principal); Z78.0 Asymptomatic menopausal state
CPT/HCPCS: 77063; 77067

== ENCOUNTER 2022-08-24 09:51 | Day surgery (SDC) | payer MEDICARE, BC ==
[2022-08-24] MEDS ORDERED: LACTATED RINGERS 1,000 ML IV SCH (10:00)
[2022-08-24 10:14] VITALS: TEMP 97.4
[2022-08-24] MEDS ORDERED: IOPAMIDOL M200 10 ML VIAL ONE (10:32)
[2022-08-24] MEDS ORDERED: MIDAZOLAM 2 MG/2 ML VIAL ONE (10:32)
[2022-08-24] MEDS ORDERED: fentaNYL (PF) 50 MCG/ML 2 ML AMP ONE (10:32)
[2022-08-24] MEDS ORDERED: methylPREDNISolone ACETATE 40 MG/ML 1 ML VIAL ONE (10:32)
[2022-08-24] MEDS ORDERED: IV FLUID CONTINUATION 1,000 ML IV ONE (10:47)
--- NOTE | 2022-08-24 10:47 | P.PCN ---
Date of Procedure: 08/24/22 Description of Procedure: PREOPERATIVE DIAGNOSIS: Lumbar radiculopathy POSTOPERATIVE DIAGNOSIS: Lumbar radiculopathy PROCEDURES: 1. Right-sided L5-S1 Transforaminal epidural steroid injection under fluoroscopic guidance 2. Lumbar epidurogram. SURGEON: Hesham Pardo LOAN PROCESSOR: None ANESTHESIA: Local , IV sedation : Versed 2 mg, and fentanyl 100 g Sedation supervision [id number] EBL: None. PROCEDURE INDICATIONS: This patient with a history of lumbar radiculopathy. Failed with conservative therapy came here for intervention procedure management. So came here for the intervention procedure . PROCEDURE DESCRIPTION: The patient was seen and identified in the preoperative area. Risks, benefits, complications, and alternatives were discussed with the patient. The patient agreed to proceed with the procedure and signed the consent. IV was started, and vital signs were stable. Patient was taken to the OR and time out was completed. The patient was placed in the prone position on procedure table and a pillow was placed under the abdomen to reduce lumbar lordosis. The lumbosacral area was prepped with ChloraPrep and draped in the usual sterile fashion. Critical pause was taken. Vital signs were closely monitored during the procedure. Using oblique fluoroscopy, the chin of the Ilya dog at right L5 and the skin and deeper tissues just below was localized with 1% lidocaine. Subsequently, a 22-gauge 5- spinal needle was advanced under a tunneled view fluoroscopic guidance just underneath the chin of the Ilya dog at left L5. Under lateral fluoroscopy, the needle was then advanced to the posterior border of the L5 interforaminal space. After negative aspiration of CSF and blood and with no paresthesias, 1 mL of [id number] dye was injected good epidurogram and outlining of the L5 nerve root. After negative aspiration of CSF, blood and with no paresthesia 3 mL of block solution containing 40 MG of Depo-Medrol , mixed with 2 mL of normal saline preservative-free was injected. Needle was removed intact. Skin was cleansed, and bandages were applied. COMPLICATIONS: None. DISPOSITION / PLANS: The patient was placed in a supine position and transferred to the recovery area in a stable condition for observation. There was no deondre dence of lower extremity motor or sensory deficit after the procedure. Patient was discharged from the recovery room after meeting discharge criteria. Home discharge instructions were given to the patient by the staff. The patient was reexamined prior to discharge. Patient can follow up with the pain clinic in 4 weeks duration.
[2022-08-24 10:54] VITALS: RESP 14
[2022-08-24 11:06] VITALS: BP 119/74; PULSE 71
--- NOTE | 2022-08-24 11:29 | FL ---
EXAMINATION TYPE: FL guided pain mgmt statistic DATE OF EXAM: 08/24/2022 HISTORY: Fluoroscopy time 7 seconds of fluoroscopy provided. DAP [id number] IMPRESSION: 1. Fluoroscopy time.
== END 2022-08-24 11:11 | disposition home or self-care (01) ==
LOC: ORPAIN 09:51
DX: M54.16 Radiculopathy, lumbar region (principal); F10.90 Alcohol use, unspecified, uncomplicated; M19.90 Unspecified osteoarthritis, unspecified site; G47.33 Obstructive sleep apnea (adult) (pediatric); Z99.89 Dependence on other enabling machines and devices; Z68.41 Body mass index [BMI] 40.0-44.9, adult; Z98.890 Other specified postprocedural states; Z90.49 Acquired absence of other specified parts of digestive tract; Z88.0 Allergy status to penicillin; Z88.5 Allergy status to narcotic agent; Z91.040 Latex allergy status; Z91.048 Other nonmedicinal substance allergy status
CPT/HCPCS: 64483; J2250; J1030; J3010; Q9966

== ENCOUNTER → 2022-09-13 | Outpatient (CLI) | payer MEDICARE, BC ==
[2022-09-13 12:49] VITALS: BP 141/86; PULSE 74; RESP 18; TEMP 98
--- NOTE | 2022-09-13 14:18 | P.PAINPG ---
PQRS Measure Charge Sheet Comment: A 57 yr old female with a history of severe and chronic LBP x 3 yrs secondary to lumbar DDD and spondylosis with facet arthropathy without myelopathy presents today for evaluation s/p R TFESI L5-S1. Pt states she experienced 0 % pain relief x 3 wks s/p procedure. Pain level is provoked at 70/10 in intensity, constant, localized in the BL lower lumbar spine, achy/ sharp in character w shooting towards the RLE. Pain is provoked by standing, walking, lifting for periods of . Pain is alleviated with medications, PT integrated w massage x 6 wks in Jun 2021 which provoked pain, heat, topicals, repositioning and rest. Interventional pain procedures completed include EDIN L4-5, R RFA L3-L5, R TFESI L5-S1 Patient is currently on Ibu Patient denies any side effects of the medication(s), denies excessive drowsiness or sleepiness, denies suicidal ideation and reports that the current pain medication is helping to control the pain and improve activities of daily living. Patient denies any motor or sensory deficits. Patient denies any fever or night sweats, denies any change in the bowel movements or urination. Physical Examination: -Constitutional: Cooperative. Not in acute distress . - Neurologic: Cranial nerve II to XII intact. No focal neurological deficits. - Psychatric: Alert & oriented x 3. Matching mood & appropriate affect. Judgment and insight intact. - Musculoskeletal: Cervical spine: Muscle bulk/ tone/ strength in the bilateral upper extremities normal Vertebral body tenderness to palpation over Spurling test positive Distraction test positive Facet loading test positive TTP Thoracic spine Muscle bulk / tone/ strength in the bilateral paraspinal muscles normal Vertebral body tender to palpation over Facet loading test positive TTP Lumbar spine: Motor bulk/ tone/ strength lower extremities , thigh and legs : 5/5 Deep tendon reflexes : Normal Knee Jerk. Normal Ankle Jerk . Vertebral body tenderness to palpation over Lumbar Facet Loading Test positive Straight Leg Raise: positive at 30 degrees right side/ left side Gaenslen's Test positive Sacral spine : Severe tenderness over the Sacroiliac joint: right side / left side Range of motion: Flexion of the lumbar spine <60 degrees Range of motion: Extension of the lumbar spine <20 degrees Gaenslen's Test positive right side / left side Brady test: positive right side / left side Thigh Thrust Test positive right side / left side Sacral Thrust Test positive right side / left side Assessment and plan: Chronic LBP secondary to lumbar DDD, spondylosis with facet arthropathy without myelopathy Recommendation of follow up w Dr Boyle. She would like time to think about whether to go forward with a SCS Trial. All questions answered. I have spent less than 30 minutes on patient care today. Dr Clarke was available by phone for the evaluation of this patient. The time was used to review the medical records including relevant urine studies and Prescription history (MAPs), review of the available imaging, evaluation and examination of the patient, coordination of care with the medical staff and if applicable referring physicians, as well as creation of the medical record PQRS Narrative: Smoking Status Former smoker Hx Alcohol Use (MH) No Home Medications: Ambulatory Orders Sertraline [Zoloft] 50 mg PO QAM 03/17/14 Aspirin [Adult Low Dose Aspirin EC] 81 mg PO DAILY 01/11/16 Omeprazole 20 mg PO BID 08/07/17 Cyclobenzaprine [Flexeril] 10 mg PO DAILY PRN 12/11/19 lisinopriL [Zestril] 5 mg PO QAM 12/11/19 Multivitamins, Thera [Multivitamin (formulary)] 1 tab PO DAILY 04/11/21 Vit C/Ascorb Sod/Multivit-Min [Emergen-C 500 mg Chewable Tab] 500 mg PO DAILY 04/11/21 Acetaminophen Tab [Tylenol] 650 mg PO Q4H PRN 10/25/21 Ibuprofen [Motrin] 800 mg PO Q6H PRN 10/25/21 Psyllium Husk [Metamucil] 0.4 gm PO DAILY 10/25/21 Turmeric Root Extract [Turmeric] 500 mg PO DAILY 10/25/21 Atorvastatin [Lipitor] 20 mg PO DAILY 05/02/22 Ferrous Sulfate [Feosol] 325 mg PO DAILY 08/22/22 Controlled Substance Measures - Controlled Substance Measures Is patient prescribed a controlled substance at discharge?: No
== END ==
LOC: PNWHC3 10:53
PROVIDERS: ATTEND Specialist
DX: M51.36 Other intervertebral disc degeneration, lumbar region (principal); M47.816 Spondylosis without myelopathy or radiculopathy, lumbar region; G89.29 Other chronic pain; Z87.891 Personal history of nicotine dependence; Z79.82 Long term (current) use of aspirin; Z88.0 Allergy status to penicillin; Z88.5 Allergy status to narcotic agent; Z91.040 Latex allergy status; Z91.048 Other nonmedicinal substance allergy status
CPT/HCPCS: 99211

== ENCOUNTER 2022-11-08 09:20 | Day surgery (SDC) | payer MEDICARE, BC ==
[2022-11-08 09:47] VITALS: TEMP 98.8
[2022-11-08] MEDS ORDERED: LIDOCAINE 2% INJ 20 MG/ML (2 ML VIAL) ONE (10:13)
[2022-11-08] MEDS ORDERED: PROPOFOL 10 MG/ML 20 ML VIAL IV ONE (10:13)
[2022-11-08 11:05] VITALS: BP 106/64; PULSE 75; RESP 18
--- NOTE | 2022-11-08 11:38 | P.GSHP ---
History of Present Illness H&P Date: 11/08/22 CHIEF COMPLAINT: GERD and colon screen HISTORY OF PRESENT ILLNESS: The patient is a 57-year-old female who presents with gastroesophageal reflux disease and need for colon screen. Upper and lower endoscopy were offered for further evaluation and management. PAST MEDICAL HISTORY: Please see list. PAST SURGICAL HISTORY: Please see list. MEDICATIONS: Please see list. ALLERGIES: Please see list. SOCIAL HISTORY: No illicit drug use FAMILY HISTORY: No reports of Crohn disease or ulcerative colitis. REVIEW OF ORGAN SYSTEMS: CONSTITUTIONAL: No reports of fevers or chills. GI: Denies any blood in stools or constipation. PHYSICAL EXAM: VITAL SIGNS: Stable GENERAL: Well-developed pleasant in no acute distress. HEENT: No scleral icterus. Extraocular movements grossly intact. Moist buccal mucosa. NECK: Supple without lymphadenopathy. CHEST: Unlabored respirations. Equal bilateral excursions. CARDIOVASCULAR: Regular rate and rhythm. Distal 2+ pulses. ABDOMEN: Soft, nondistended. MUSCULOSKELETAL: No clubbing, cyanosis, or edema. ASSESSMENT: 1. Gastroesophageal reflux disease 2. Colon screen. PLAN: 1. Recommend proceeding with an upper and lower endoscopy Past Medical History Past Medical History: GERD/Reflux, Hyperlipidemia, Osteoarthritis (OA), Sleep Apnea/CPAP/BIPAP, Vascular Disorder Additional Past Medical History / Comment(s): Constipation/diarrhea/stomach pain causing pt not wanting to eat and has hx of HIATAL HERNIA and colon polyps/hemorrhoids. 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 Gallagher/ Yevgeniy monitoring past hx. colon polyps, salivary adenitis occasionally, sore right knee, current bruising R knee, back pain down rt leg. bone on bone to rt knee History of Any Multi-Drug Resistant Organisms: None Reported Past Surgical History: Cholecystectomy, Heart Catheterization, Hysterectomy, Orthopedic Surgery Additional Past Surgical History / Comment(s): NIYAH, NASAL surgery, laparoscopy/benign uterine cyst, SERGIO KNEES ARTHROSCOPY,SERGIO CARPAL TUNNEL x2, SERGIO WRIST GANGLION CYST x2, CYST REMOVED LT ARM, salivary gland surg. EGD, colonoscopies, heart cath r/t shortness of breath with activity,( no findings of note) 2moles frozen off back Past Anesthesia/Blood Transfusion Reactions: No Reported Reaction, Family History of Problems w/ Anesthesia Additional Past Anesthesia/Blood Transfusion Reaction / Comment(s): "brother has hard time coming of out anethesia with PONV". Pt has never received blood. Smoking Status: Former smoker - Past Family History Mother Family Medical History: No Reported History Father Additional Family Medical History / Comment(s): Massive [place] age 65yrs and Sister(s) Family Medical History: Blood Disorder, Cancer Additional Family Medical History / Comment(s): Antiphospholipid syndrome. Brother(s) Family Medical History: Myocardial Infarction (SD) Medications and Allergies Home Medications Medication Instructions Recorded Confirmed Type Sertraline [Zoloft] 50 mg PO QAM 03/17/14 11/08/22 History Aspirin [Adult Low Dose Aspirin EC] 81 mg PO DAILY 01/11/16 11/08/22 History Omeprazole 20 mg PO BID 08/07/17 11/08/22 History Cyclobenzaprine [Flexeril] 10 mg PO DAILY PRN 12/11/19 11/08/22 History lisinopriL [Zestril] 5 mg PO QAM 12/11/19 11/08/22 History Multivitamins, Thera [Multivitamin 1 tab PO DAILY 04/11/21 11/08/22 History (formulary)] Vit C/Ascorb Sod/Multivit-Min 500 mg PO DAILY 04/11/21 11/08/22 History [Emergen-C 500 mg Chewable Tab] Acetaminophen Tab [Tylenol] 650 mg PO Q4H PRN 10/25/21 11/08/22 History Ibuprofen [Motrin] 800 mg PO Q6H PRN 10/25/21 11/08/22 History Psyllium Husk [Metamucil] 0.4 gm PO DAILY 10/25/21 11/08/22 History Turmeric Root Extract [Turmeric] 500 mg PO DAILY 10/25/21 11/08/22 History Atorvastatin [Lipitor] 20 mg PO DAILY 05/02/22 11/08/22 History Ferrous Sulfate [Iron (65 MG 325 mg PO DAILY 08/22/22 11/08/22 History Elemental)] Allergies Allergy/AdvReac Type Severity Reaction Status Date / Time Penicillins Allergy Severe Rash/Hives Verified 11/08/22 09:35 hydrocodone bitartrate Allergy Mild Rash/Hives Verified 11/08/22 09:35 [From Vicodin] adhesive Allergy Rash/Hives Verified 11/08/22 09:35 Latex, Natural Rubber Allergy Rash/Hives Verified 11/08/22 09:35 Surgical - Exam Vital Signs Temp Pulse Resp BP Pulse Ox 98.8 F 90 16 113/60 96 11/08/22 09:44 11/08/22 09:44 11/08/22 09:44 11/08/22 09:44 11/08/22 09:44
--- NOTE | 2022-11-08 11:39 | P.PCN ---
Date of Procedure: 11/08/22 Description of Procedure: PREOPERATIVE DIAGNOSIS: Gastroesophageal reflux disease. Morbid obesity. POSTOPERATIVE DIAGNOSIS: Gastroesophageal reflux disease. Morbid obesity. Gastritis. OPERATION: Esophagogastroduodenoscopy with biopsies along antrum and duodenum. SURGEON: Holly Murphy MD ANESTHESIA: MAC. INDICATIONS: The patient is a 44-year-old female who presents with reflux disease. Benefits and risks of the procedure were described. Informed consent was obtained. DESCRIPTION: The patient was brought into the endoscopy suite and laid in the left lateral decubitus position. An Olympus gastroscope was passed along the posterior oropharynx down to the distal esophagus where the squamocolumnar junction was encountered at 35 cm from the incisors. The stomach was entered and no bile reflux was found. Additional findings are listed below. Biopsies with cold forceps were obtained of the antrum. The first through third portion of the duodenum was examined. Retroflexion of the scope confirmed Hill grade 2 lower esophageal valve. The squamocolumnar junction demonstrated LA grade B erosive esophagitis. The stomach was desufflated. The patient tolerated the procedure well. FINDINGS: Squamocolumnar junction 35 cm from the incisors. Diaphragmatic hiatus at 35 cm. Hill grade 4 lower esophageal valve. LA grade B erosive esophagitis. Biopsies obtained of the duodenum. Chronic gastritis with biopsies obtained. RECOMMENDATIONS: Upper endoscopy as needed.
--- NOTE | 2022-11-08 11:41 | P.PCN ---
Date of Procedure: 11/08/22 Description of Procedure: PREOPERATIVE DIAGNOSIS: Colonoscopy screening. POSTOPERATIVE DIAGNOSIS: Colonoscopy screening. Colitis OPERATION: Colonoscopy to the cecum, ileocecal valve and appendiceal orifice. Colonoscopy with cold forceps biopsy SURGEON: Holly Murphy MD. ANESTHESIA: MAC. INDICATIONS: The patient is a 57-year-old female who presents for colonoscopy screening. Benefits and risks were described and informed consent was obtained. DESCRIPTION OF PROCEDURE: The patient had undergone Sutab prep. The patient had been brought into the operating room and laid in the left lateral decubitus position. After adequate intravenous sedation, the rectum was examined with 2% lidocaine jelly. No external hemorrhoids were encountered. The rectal tone was within normal limits. No lesions were palpated in the rectal vault. An Olympus colonoscope was advanced until the cecum, ileocecal valve and appendiceal orifice were clearly viewed. The prep was excellent. No scattered diverticulosis was encountered. No colonic polyps were found. Evidence of focal colitis was found of the sigmoid colon. Retroflexion of the scope demonstrated grade 2 internal hemorrhoids without active bleeding or inflammation. The colon was desufflated. The patient had tolerated the procedure well. Withdrawal time was over 6 minutes. FINDINGS: Aronchick preparation quality scale 1 (1-5) Internal hemorrhoids, grade 1 No external prolapsed hemorrhoids. No arteriovenous malformations. No adenomatous polyps. No sigmoid diverticulosis Colitis of the sigmoid colon with cold forceps biopsies obtained RECOMMENDATIONS: Lower endoscopy in 5 years, 2027 Plan - Discharge Summary Discharge Rx Participant: No New Discharge Prescriptions: Continue Sertraline [Zoloft] 50 mg PO QAM Aspirin [Adult Low Dose Aspirin EC] 81 mg PO DAILY Omeprazole 20 mg PO BID lisinopriL [Zestril] 5 mg PO QAM Cyclobenzaprine [Flexeril] 10 mg PO DAILY PRN PRN Reason: MUSCLE SPASMS Vit C/Ascorb Sod/Multivit-Min [Emergen-C 500 mg Chewable Tab] 500 mg PO DAILY Turmeric Root Extract [Turmeric] 500 mg PO DAILY Psyllium Husk [Metamucil] 0.4 gm PO DAILY Multivitamins, Thera [Multivitamin (formulary)] 1 tab PO DAILY Ibuprofen [Motrin] 800 mg PO Q6H PRN PRN Reason: Pain Acetaminophen Tab [Tylenol] 650 mg PO Q4H PRN PRN Reason: Pain Atorvastatin [Lipitor] 20 mg PO DAILY Ferrous Sulfate [Iron (65 MG Elemental)] 325 mg PO DAILY Discharge Medication List Sertraline [Zoloft] 50 mg PO QAM 03/17/14 [History] Aspirin [Adult Low Dose Aspirin EC] 81 mg PO DAILY 01/11/16 [History] Omeprazole 20 mg PO BID 08/07/17 [History] Cyclobenzaprine [Flexeril] 10 mg PO DAILY PRN 12/11/19 [History] lisinopriL [Zestril] 5 mg PO QAM 12/11/19 [History] Multivitamins, Thera [Multivitamin (formulary)] 1 tab PO DAILY 04/11/21 [History] Vit C/Ascorb Sod/Multivit-Min [Emergen-C 500 mg Chewable Tab] 500 mg PO DAILY 04/11/21 [History] Acetaminophen Tab [Tylenol] 650 mg PO Q4H PRN 10/25/21 [History] Ibuprofen [Motrin] 800 mg PO Q6H PRN 10/25/21 [History] Psyllium Husk [Metamucil] 0.4 gm PO DAILY 10/25/21 [History] Turmeric Root Extract [Turmeric] 500 mg PO DAILY 10/25/21 [History] Atorvastatin [Lipitor] 20 mg PO DAILY 05/02/22 [History] Ferrous Sulfate [Iron (65 MG Elemental)] 325 mg PO DAILY 08/22/22 [History] Follow up Appointment(s)/Referral(s): Holly Murphy MD [STAFF PHYSICIAN] - 12/05/22 2:30 pm Patient Instructions/Handouts: GERD (Gastroesophageal Reflux Disease) (DC), Colitis (ED) Activity/Diet/Wound Care/Special Instructions: Repeat colonoscopy 5 years, 2027 Discharge Disposition: HOME SELF-CARE
== END 2022-11-08 11:41 | disposition home or self-care (01) ==
LOC: ORWHC2ENDO 09:20
PROVIDERS: ATTEND Surgery Plastic and Reconstructive Surgery
DX: Z12.11 Encounter for screening for malignant neoplasm of colon (principal); K29.50 Unspecified chronic gastritis without bleeding; K21.00 Gastro-esophageal reflux disease with esophagitis, without bleeding; K52.9 Noninfective gastroenteritis and colitis, unspecified; K64.0 First degree hemorrhoids; E66.01 Morbid (severe) obesity due to excess calories; M19.90 Unspecified osteoarthritis, unspecified site; G47.33 Obstructive sleep apnea (adult) (pediatric); E78.5 Hyperlipidemia, unspecified; Z90.49 Acquired absence of other specified parts of digestive tract; Z99.89 Dependence on other enabling machines and devices; Z95.5 Presence of coronary angioplasty implant and graft; Z90.710 Acquired absence of both cervix and uterus; Z86.010 Personal history of colon polyps; Z87.891 Personal history of nicotine dependence; Z82.49 Family history of ischemic heart disease and other diseases of the circulatory system; Z79.82 Long term (current) use of aspirin; Z79.899 Other long term (current) drug therapy; Z88.0 Allergy status to penicillin; Z91.048 Other nonmedicinal substance allergy status; Z91.040 Latex allergy status; Z88.8 Allergy status to other drugs, medicaments and biological substances; Z68.38 Body mass index [BMI] 38.0-38.9, adult
CPT/HCPCS: 88305; 45380; 43239; J2704; J2001

== ENCOUNTER → 2022-11-22 | Outpatient (CLI) | payer MEDICARE, BC | END | disposition home or self-care (01) | LOC: LABPAT 10:28 | PROVIDERS: ATTEND Orthopaedic Surgery | DX: Z01.812 Encounter for preprocedural laboratory examination (principal); Z22.322 Carrier or suspected carrier of Methicillin resistant Staphylococcus aureus; M43.12 Spondylolisthesis, cervical region; M48.02 Spinal stenosis, cervical region; M47.816 Spondylosis without myelopathy or radiculopathy, lumbar region | CPT/HCPCS: 87070 ==

== ENCOUNTER 2022-11-28 08:39 | Day surgery (SDC) | payer MEDICARE, BC ==
[~2022-11-28 08:39] MED LIST changes: +ACETAMINOPHEN TAB 500 MG TAB PO PRN; +GABAPENTIN 300 MG CAP PO PRN; -LACTATED RINGERS 1,000 ML IV SCH; +LIDOCAINE 1% (10MG/ML) FOR IV START INTRADERMA PRN; +ONDANSETRON 4 MG/2 ML VIAL IVP ONE; +ONDANSETRON 4 MG/2 ML VIAL IVP PRN; +TRANEXAMIC 1,000 MG/100ML-NACL 1,000 MG in SALINE 1 100ML.BAG IVPB PRN; +fentaNYL (PF) 50 MCG/ML 2 ML AMP IV PRN
[2022-11-28] MEDS: LACTATED RINGERS 1,000 ML IV SCH (09:44)
[2022-11-28] MEDS ORDERED: HYDROcodone/APAP 10-325MG 1 EACH TAB PO PRN (11:15)
[2022-11-28] MEDS ORDERED: SENNOSIDES-DOCUSATE SODIUM 1 EACH TAB PO PRN (11:15)
[2022-11-28] MEDS ORDERED: HYDROcodone/APAP 5-325MG 1 EACH TAB PO PRN (11:15)
[2022-11-28] MEDS ORDERED: CYCLOBENZAPRINE 5 MG TAB PO PRN (11:15)
[2022-11-28] MEDS ORDERED: HYDROmorphone 0.5 MG/0.5 ML SYRINGE IVP PRN (11:15)
[2022-11-28] MEDS ORDERED: MAGNESIUM HYDROXIDE 2,400 MG/30 ML CUP PO PRN (11:15)
[2022-11-28] MEDS ORDERED: HYDROmorphone 1 MG/ML 1 ML SYRINGE IVP PRN (11:15)
[2022-11-28] MEDS ORDERED: THROMBIN (BOVINE) 5,000 UNIT VIAL MISCELLANE ONE (12:12)
[2022-11-28] MEDS ORDERED: GELATIN SPONGE,ABSORB (LARGE) 1 EACH SPONGE MISCELLANE ONE (12:12)
[2022-11-28] MEDS ORDERED: traMADol 50 MG TAB PO PRN (12:32)
[2022-11-28] MEDS ORDERED: BUPIVACAINE (PF) 0.25% 30 ML VIAL SQ ONE (13:25)
[2022-11-28] MEDS ORDERED: LIDOCAINE 2% (PF) 20 MG/ML 10 ML AMP SQ ONE (13:25)
--- NOTE | 2022-11-28 14:03 | XR ---
EXAM TYPE: LUMBAR SPINE X RAY SERIES COMPARISON: NONE HISTORY: Postop lumbar fusion TECHNIQUE: 4 views are submitted. FINDINGS: Limited resolution intraoperative views demonstrate postsurgical change involving the lower 2 lumbar segments. Near-anatomic alignment. Disc spaces are seen with transpedicular screws situated within th eir respective vertebral segments. IMPRESSION: 1. Postoperative changes.
--- NOTE | 2022-11-28 14:06 | FL ---
EXAMINATION TYPE: FL guidance operating room DATE OF EXAM: 11/28/2022 HISTORY: Fluoroscopy time Total dose area product (DAP) in uGy*m?, mGy*cm? (or similar): 44.708 IMPRESSION: 1. Fluoroscopy time.
[2022-11-28] MEDS ORDERED: LACTATED RINGERS 1,000 ML IV ONE (14:19)
[2022-11-28] MEDS ORDERED: HYDROmorphone 0.5 MG/0.5 ML SYRINGE IVP ONE ×2 (14:27→14:44)
[2022-11-28] MEDS ORDERED: ONDANSETRON 4 MG/2 ML VIAL IVP ONE (14:44)
[2022-11-28] MEDS: GABAPENTIN 300 MG CAP PO SCH ×2 (17:00→22:12)
--- NOTE | 2022-11-28 17:44 | CT ---
EXAMINATION TYPE: CT lumbar spine wo con CT DLP: 1820.6 mGycm, Automated exposure control for dose reduction was used. DATE OF EXAM: 11/28/2022 5:07 PM COMPARISON: Radiograph same day. CLINICAL INDICATION:Female, 57 years old with history of s/p L4-L5 MIS TLIF; PHH, s/p L4-L5 MIS TLIF TECHNIQUE: Multiple axial images were obtained from the midportion of T11 through the sacroiliac que nts. Soft tissue and bone windows in coronal and sagittal planes were obtained and reviewed. 3-D ref ormats of the bones were created on a separate workstation and submitted for review. Contrast used: mL of , none. Oral contrast used: none. FINDINGS: Postsurgical changes to the lumbar spine with fixation hardware at L4, and L5. Discectomy at L4-L5. H ardware limits evaluation at these levels. Hardware appears intact. No evidence of fracture. Postsurgical changes in the soft tissues with foci of gas present. IMPRESSION: Postsurgical changes without evidence of immediate post operative complication.
--- NOTE | 2022-11-28 17:58 | P.CONS ---
History of Present Illness - Reason for Consult Consult date: 11/28/22 - History of Present Illness Patient is a female with hypertension, dyslipidemia, aortic regurgitation, and class III obesity who presented for elective L4-5 minimally invasive transforaminal lumbar interbody fusion. Patient seen and examined at bedside. She denies any nausea or vomiting, she has some minimal lightheadedness. Her pain is currently out of 6. She denies any chest pain or shortness of breath. is at bedside and all questions answered. No recent cough, cold, fever, flu. Vital signs reviewed General: nontoxic, no distress, appears at stated age Derm: warm, dry ENT: Nose and ears atraumatic, no thrush, no pharyngeal erythema Cardiovascular: S1S2 reg, no murmur, positive posterior tibial pulse bilateral, no edema, capillary refill less than 2 seconds Lungs: clear to auscultation bilateral, no rhonchi, no rales, no wheeze, no accessory muscle use Abdominal: soft, nontender to palpation, no guarding, no appreciable organomegaly, normal bowel sounds Ext: no gross muscle atrophy, no contractures Neuro: CN II-XII grossly intact, moving all 4 extremities independently Psych: Alert, oriented, appropriate affect Assessment/Plan : 57-year-old female status post L4-5 MIS TLIF- management per ortho spine -CBC and basic metabolic profile in a.m. HTN - resume lisinopril 5 mg daily HLD - lipitor 20 mg daily GERD - start protonix 20 mg daily ASTRID - patient to bring in CPAP for use, educated on importance Imaging: CT lumbar spine- post srugical changes Data Review: Vitals revealed temperature 97.6, pulse 99, respirations 16, blood pressure 119/79, O2 sat 93% on 3 L Preoperative blood work revealed potassium was 5.2, rechecked today and less tracy n 5, baseline creatinine 0.7, preoperative hemoglobin 13.3 Thank you for allowing us to participate in the care of this pleasant patient. Do not hesitate to contact us with questions. Someone can be reached from the [facility] hospitalist group all hours of the day at [phone] or via [employer] serve. This dictation was prepared using [employer] voice recognition software. Though every attempt is made to correct errors during dictation some may still exist. 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 Gallagher/ Yevgeniy monitoring past hx. colon polyps, salivary adenitis, sore right knee, back pain down rt leg, bone on bone/bone spurs to rt knee History of Any Multi-Drug Resistant Organisms: None Reported Past Surgical History: Cholecystectomy, Heart Catheterization, Hysterectomy, Orthopedic Surgery Additional Past Surgical History / Comment(s): NIYAH, NASAL surgery, laparoscopy, SERGIO KNEES ARTHROSCOPY,SERGIO CARPAL TUNNEL x2, SERGIO WRIST GANGLION CYST x2, CYST REMOVED LT ARM, salivary gland surg. EGD, Heart cath r/t shortness of breath with activity,( no findings of note) 2moles frozen off back, colonoscopy, EGD Past Anesthesia/Blood Transfusion Reactions: Family History of Problems w/ Anesthesia Additional Past Anesthesia/Blood Transfusion Reaction / Comm: "brother has hard time coming of out anethesia with PONV". Pt has never received blood Smoking Status: Former smoker - Past Family History Mother Family Medical History: No Reported History Father Additional Family Medical History / Comment(s): Massive MS age 65yrs and Sister(s) Family Medical History: Blood Disorder, Cancer Additional Family Medical History / Comment(s): Antiphospholipid syndrome. Brother(s) Family Medical History: Myocardial Infarction (MS) Medications and Allergies Home Medications Medication Instructions Recorded Confirmed Type Sertraline [Zoloft] 50 mg PO QAM 03/17/14 11/28/22 History Aspirin [Adult Low Dose Aspirin EC] 81 mg PO QAM 01/11/16 11/28/22 History Omeprazole 20 mg PO BID 08/07/17 11/28/22 History Cyclobenzaprine [Flexeril] 10 mg PO DAILY PRN 12/11/19 11/28/22 History lisinopriL [Zestril] 5 mg PO QAM 12/11/19 11/28/22 History Multivitamins, Thera [Multivitamin 1 tab PO QAM 04/11/21 11/28/22 History (formulary)] Vit C/Ascorb Sod/Multivit-Min 500 mg PO QAM 04/11/21 11/28/22 History [Emergen-C 500 mg Chewable Tab] Acetaminophen Tab [Tylenol] 650 mg PO Q4H PRN 10/25/21 11/28/22 History Ibuprofen [Motrin] 800 mg PO Q6H PRN 10/25/21 11/28/22 History Psyllium Husk [Metamucil] 0.4 gm PO QAM 10/25/21 11/28/22 History Turmeric Root Extract [Turmeric] 500 mg PO QAM 10/25/21 11/28/22 History Atorvastatin [Lipitor] 20 mg PO QAM 05/02/22 11/28/22 History Ferrous Sulfate [Iron (65 MG 325 mg PO QAM 08/22/22 11/28/22 History Elemental)] Allergies Allergy/AdvReac Type Severity Reaction Status Date / Time Penicillins Allergy Severe Rash/Hives Verified 11/28/22 09:17 hydrocodone bitartrate Allergy Mild Rash/Hives Verified 11/28/22 09:17 [From Vicodin] adhesive Allergy Rash/Hives Verified 11/28/22 09:17 Latex, Natural Rubber Allergy Rash/Hives Verified 11/28/22 09:17 Physical Exam Osteopathic Statement: *. No significant issues noted on an osteopathic structural exam other than those noted in the History and Physical/Consult. Vitals: Vital Signs Temp Pulse Resp BP Pulse Ox 11/28/22 17:11 97.6 F 99 16 119/79 93 L 11/28/22 16:00 104 H 16 106/59 94 L 11/28/22 15:30 100 17 97/57 94 L 11/28/22 15:15 99 15 94/56 94 L 11/28/22 15:00 99 16 95/59 95 11/28/22 14:45 103 H 15 120/51 96 11/28/22 14:30 103 H 16 117/56 96 11/28/22 14:15 101 H 14 126/58 96 11/28/22 14:00 113 H 17 124/73 92 L 11/28/22 13:45 97.2 F L 90 16 107/57 95 11/28/22 09:14 97.5 F L 88 14 124/60 95 Intake and Output 11/28/22 11/28/22 11/28/22 06:59 14:59 22:59 Intake Total 1750 Output Total 50 Balance 1700 Intake: IV 1750 Output: Estimated Blood Loss 50 Other: Weight 101.4 kg Results CBC & Chem 7: 11/28/22 10:20
[2022-11-28] MEDS: ACETAMINOPHEN TAB 325 MG TAB PO SCH (18:33)
[2022-11-28] MEDS: ONDANSETRON 4 MG/2 ML VIAL IVP PRN (19:08)
[2022-11-29] MEDS: ACETAMINOPHEN TAB 325 MG TAB PO SCH ×3 (00:24→11:25)
[2022-11-29] MEDS: ONDANSETRON 4 MG/2 ML VIAL IVP PRN (00:24)
[2022-11-29] MEDS ORDERED: PANTOPRAZOLE 40 MG TABLET PO SCH (07:30)
[2022-11-29] MEDS: LACTATED RINGERS 1,000 ML IV SCH (07:36)
[2022-11-29] MEDS: GABAPENTIN 300 MG CAP PO SCH (07:52)
--- NOTE | 2022-11-29 08:15 | P.PN ---
Subjective Progress Note Date: 11/29/22 Principal diagnosis: 1. L4-L5 grade 1 spondylosis with spondylolisthesis and stenosis 2.Left lower extremity radiculopathy 3. Left lower extremity L4 dermatomal deficit 4. Low back pain Patient seen and examined this morning. Patient is resting comfortably in bed with CPAP present. Patient reports that her pain is managed on current regimen. She states she has ambulated with walker multiple times to the restroom. Patient reports she is tolerating activity well. She is looking forward to working with physical therapy today. Surgical dressing to the lumbar spine is clean dry and intact. Patient denies any numbness or tingling to bilateral lower extremities. Patient reports that she would like to possibly be discharged home later today. We will reassess this afternoon to see how patient is feeling. Objective - Vital Signs Vital signs: Vital Signs Temp 98.3 F 11/29/22 02:00 Pulse 92 11/29/22 02:00 Resp 17 11/29/22 02:00 BP 120/76 11/29/22 02:00 Pulse Ox 94 L 11/29/22 02:00 FiO2 Intake & Output 11/28/22 11/29/22 11/29/22 18:59 06:59 18:59 Intake Total 1750 400 Output Total 550 300 Balance 1200 100 Weight 101.4 kg 101.4 kg Intake: IV 1750 Oral 400 Output: Urine 500 Emesis 300 Estimated Blood Loss 50 Other: # Voids 4 # Emeses 1 - Exam Inspection: Surgical dressing to the lumbar spine. Dressing is clean dry and intact. Negative for any active drainage. Sensation: Sensation is equal, symmetric, bilaterally intact throughout the upper and lower extremities Palpation: Nontender to palpation throughout bilateral upper and lower extremities. Tenderness to the lumbar spine due to procedure. Range of motion: Patient does have full range of motion bilateral upper and lower extremities on exam Motor: 5/5 in all major motor groups in the bilateral upper and 4/5 lower extremities Special tests: Negative Homans bilaterally. Negative Ed bilaterally. Negative clonus bilaterally. Neurovascular: Radial pulse intact, 2+ bilaterally. Cap refill under 3 seconds in digits upper extremities. - Labs CBC & Chem 7: 11/28/22 10:20 Assessment and Plan Assessment: Postop day 1: Minimally invasive TLIF L4-L5 1. L4-L5 grade 1 spondylosis with spondylolisthesis and stenosis 2.Left lower extremity radiculopathy 3. Left lower extremity L4 dermatomal deficit 4. Low back pain Plan: -Appreciate business management consultant and team management. -Activity: Ambulate QID, OOB all meals, up and about, limit lifting bending twisting to less than 5 lbs. Use walker or cane if needed for stability. -Daily PT/OT, increase ambulation strength and balance. -Pain control: Adequate at this time -Meds: reviewed -GI ppx: senna, Miralax -DVT PPX: OK to restart Heparin tonight, SCDs -Hygiene: Shower today. Maintain dressing clean and dry. Meticulous cleaning after BMs away from the incision site -Encourage IS 10x/hr -Dispo: Anticipate discharge home with homecare later today versus tomorrow 11/30/2022 *I reviewed and discussed this case with my attending Dr. Boyle, whom has reviewed this chart and films and is in agreement with assessment and plan of care as outlined above. I have personally seen and examined the patient, performed the documentation and the assessment and plan as written. Number of minutes spent on the visit: 15m.
[2022-11-29] MEDS ORDERED: lisinopriL 5 MG TAB PO SCH (09:00)
[2022-11-29] MEDS ORDERED: ATORVASTATIN 20 MG TAB PO SCH (09:00)
[2022-11-29 09:26] LABS: Basophils # (A) 0.03 X 10*3/uL (0.00-0.10); Basophils % (A) 0.2 %; Eosinophils # (A) 0 X 10*3/uL (0.04-0.35); Eosinophils % (A) 0 %; HCT 35.8 % (37.2-46.3); HGB 11.4 d/dL (12.0-15.0); Lymphocytes # (A) 1.61 X 10*3/uL (0.90-5.00); Lymphocytes % (A) 9.5 %; MCH 32.1 pg (27.0-32.0); MCHC 31.8 d/dL (32.0-37.0); MCV 100.8 FL (80.0-97.0); Mean Platelet Volume 12.2 FL (9.5-12.2); Monocytes # (A) 1.49 X 10*3/uL (0.20-1.00); Monocytes % (A) 8.8 %; NRBC Per 100 WBC 0 X 10*3/uL (0.00-0.01); Neutrophils # (A) 13.72 X 10*3/uL (1.80-7.70); Platelet Count 280 X 10*3/uL (140-440); RBC 3.55 X 10*6/uL (4.10-5.20); WBC 16.94 X 10*3/uL (4.50-10.00)
[2022-11-29 09:37] LABS: Blood Urea Nitrogen 9.1 mg/dL (9.0-27.0); Calcium 8.8 mg/dL (8.7-10.3); Carbon Dioxide 26.2 mmol/L (21.6-31.8); Chloride 99 mmol/L (96-109); Glucose 129 mg/dL (70-110); Potassium 4.3 mmol/L (3.5-5.5); Sodium 137 mmol/L (135-145)
--- NOTE | 2022-11-29 10:55 | P.OP ---
Date of Procedure: 11/28/22 Preoperative Diagnosis: 1. 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 LE RADICULOPATHY 3. MECHANICAL LOW BACK PAIN 4. LE WEAKNESS Postoperative Diagnosis: 1. 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 LE RADICULOPATHY 3. MECHANICAL LOW BACK PAIN 4. LE WEAKNESS Procedure(s) Performed: 1. L4-5 POSTERIOLATERAL AND INTERBODY FUSION (93381) 2. DECOMPRESSION L4-5, LAMINOFORAMINOTOMY (63036) 3. INSTRUMENTATION L4-5 (93621) 4. INTERBODY BIOMECHANICAL DEVICE (73781) 5. USE OF [employer] NAVIGATION FOR SCREW PLACEMENT (71265) USE OF IONM USE OF IO MICROSCOPE Implants: -GLOBUS CREO SCREW/JUNIOR -LIFE SPINE PROLIFT CAGE 8-13 12 DEG -MAGNATOS, IFACTOR, ARTHROCELL, AUTOGRAFT Anesthesia: GETA Surgeon: Raymond Boyle [facility] Picking Technician #1: Patrick Ca (ENE Nieto Was present and assisted with all aspects of the case from positioning to dressing placement) Estimated Blood Loss (ml): 50 IV fluids (ml): 1,200 Urine output (ml): 0 Pathology: none sent Condition: stable Disposition: PACU Indications for Procedure: Ms. Raygoza is presenting for evaluation of low back pain. It was my pleasure to have seen and examined Ms. Raygoza. In our visit today we have had a chance to go over subjective complaints, physical examination findings and treatments including the natural course history without intervention and various interventional options. The patients imaging demonstrates: RADIOGRAPHIC STUDIES: Xrays from 10/04/2022 of the lumbar spine demonstrate: This is reviewed in office and demonstrates L4-5 grade I spondylolisthesis with angular changes on F/E films as well as translation. There is pars elongation at this level that isnoted along with facet arthrosis and hypertrophy. There are no fractures noted. No lesions noted. Disc height loss as this level as well. Overall, LL is maintained as well as coronal blance. Xrays from 06/22/2021 of the lumbar spine and pelvis demonstrate: This is reviewed in office and demonstrates L4-5 grade I spondylolisthesis with angular changes on F/E films as well as translation. There is pars elongation at this level that isnoted along with facet arthrosis and hypertrophy. There are no fractures noted. No lesions noted. Disc height loss as this level as well. Overall, LL is maintained as well as coronal blance. AP pelvis does not demonstrate any complicating process. MRI from 08/16/2021 of the lumbar spine: images reviewed in the office patient this demonstrates mild spondylotic changes throughout the lumbar spine which are worse at L4-L5 there is a grade 1 spondylolisthesis L4-L5 which is nearly reduced in the supine film. There is st enosis bilateral foraminotomy as well as centrally related to this there is ligamental hypertrophy as well as facet hypertrophy and bogginess L4-L5 due to this as well. No fracture or dislocation is noted. Lordosis is flattened at this level due to disc collapse however overall fairly well maintained. No lesions On physical exam, Ms. Raygoza demonstrates: she reports sharp posterior lumbar pain radiating into the left hip and groin diffusely as well as the bilateral lower extremities. She denies any perineal numbness or tingling. Patient is also having increased sleep disturbances as well due to her pain.Overall she denies any lasting improvements to her symptoms with the modalities trailed thus far. Otherwise she notes that she has had a recent increase in bowel incontinence without any specific mechanism of onset or injury. I have explained to the patient that as their condition progresses it will cause further neurological deficits and eventual paralysis. Based on the patients imaging, physical exam, and the rapid progression and disabling nature of their symptoms, at this time I recommend surgery in the form of a: L4-5 transforaminal lumbar interbody fusion on the right I discussed the risk and benefits of this procedure at length with Ms. Raygoza. The patient agreed to considered pursuing the procedure above mentioned. Prior to surgery, she should follow up with her PCP (Cardio, ID, IM etc) for clearance. Questions were invited and answered, and the patient wishes to proceed as outlined below. Currently, I am recommendin. L4-5 transforaminal lumbar interbody fusion on the right Description of Procedure: L4-L5 MIS TLIF ROSALINE The patient was seen and examined in the preoperative area. All preoperative protocols were followed. Informed consent was obtained risks and benefits of the procedure were discussed at length. Risks including bleeding infection damage to the surrounding tissue and risk of reoperation were discussed with the patient. Risk of anesthesia up to and including was a discussed with the patient. These are outlined in the risk review. They were willing to accept these risks and all the risks of surgery. The patient was given a weight-based dose of antibiotics in the form of 2 g Ancef. The patient was seen and evaluated by the anesthesia team who deemed them fit for surgery. The site was marked, the patient was willing to proceed with the procedure. The patient was transferred to the operative suite by the Department of anesthesia. They were then drifted off to sleep by the department anesthesia and GETA was performed. The patient tolerated this well. Bazan catheter was placed by nursing staff, a-traumatically. Once confirmation of lines and ventilation the patient was transferred to a prone Brown table very carefully. All bony prominences including wrists, elbows, axilla, chest, hips, and thighs, and feet were padded very well. Special attention was paid to the genitalia, and these were padded accordingly. SCDs were placed on bilateral lower extremities and were connected. Arms were well padded and placed on arm boards up and out in the 90/90 position. Once in position, again we confirmed good ventilation capabilities and that lines were running appropriately. The patients Lumbar spine was then exposed. 1010s were placed outlining the incision site. Standard alcohol was used to clean the incision site and allowed to dry. C-arm was used to needle localize the pedicles at L4-5 and bio-luisa the patient and confirm level for incision which was marked with a skin marker. Operative briefing was performed with all teams and everyone in agreement to proceed. The patient was then prepped and draped in a normal sterile fashion. Timeout was then performed, and all parties agreed with the procedure to be performed. Skin nicks made and pins placed in the PSIS on the right for the Coxsackie tracker. 3D Zheim spin was then registered and confirmed to be accurate. Navigated jamshidi and drill-guide were then used to target pedicles bilaterally at L4 and L5. Jamshidi was Once accessed wires were placed in their void. This was repeated at L5 bilaterally. Skin incision was then made along these wires and perfect scalpel was used over the wire to create a path and measure screw length. Screws were then placed over wires on the contralateral side. Once screw was at the back of the body wire was removed. The screws were confirmed to be in good position on AP and lateral. We then tested screws and they all tested above 20 mA. Attention was then turned to interbody fusion at L4-5. Tubular retractor system was placed at the interspace of L4-5 using biplanar c arm. Once in position and dilated up to 26mm tube it was locked to the bed and confirmed in good position. Microscope was then brought in for visualization. Limited myomectomy was performed and laminectomy, complete facetectomy and foraminotomy performed at L4-5 using high speed [place] and Kerrison rongure. The ligamentum was removed and dural sac decompressed. Exiting and traversing roots visualized and decompressed. Neural elements were then protected, and disc space accessed with an osteotome. Sequential shaving then done under lateral imaging and complete discectomy performed using kt, pituitary and curettes. Once good bleeding endplates accomplished and good height nondenominational with trials, a combination of autograft, allograft and synthetic placed anterior in the disc space. The cage was then selected and impacted into place under lateral imaging. The cage was then expanded restoring height, lordosis and alignment. The cage was backfilled with bone graft through a funnel. The director systems removed and area inspected. Good cage placement, stable cage and no injuries. Area was irrigated copiously, and meticulous hemostasis achieved. The tubular retractor was then removed under direct visualization. Screws were then selected and placed over the previously placed wires on the ipsilateral side. This was done in the fashion described above. Screws were then tested, and all tested above 20 mA. Shells were then placed on the tabs. Junior length was then measured, and rods selected. They were then placed through the MIS tabs, subfascial and locked into L5 bilateral and sequentially reduced into L4 for listhesis reduction. These were then locked into place with set screws and final tightened. Junior holders removed and images taken showing good placement of rods good lordosis and nondenominational of height. Tabs were broken off. Wounds were then copiously irrigated with NSS. Rutherford used for TP decortication and mixture of MagnatOs, allograft and autograft packed posterolateral. Facia was then closed with 0 Vircyl on a ScCrimson Hexagonion suture passer for MIS closure. Deep subq closed with 0 Vicryl. Superficial subq closed with 2-0 Vicryl and skin with nakia. Wound edges approximated very well. Wound was then cleaned with alcohol and dried. Wounds dressed in Optifoam dressings. The patient was then transferred off the table back to their hospital bed a- traumatically. They were extubated by the department of anesthesia. They were then transferred to PACU in stable condition having tolerated the procedure with no complications.
--- NOTE | 2022-11-29 11:02 | P.PN ---
Subjective Progress Note Date: 11/29/22 Subjective: In seen and examined at bedside. No acute events overnight. He claims that the back pain has better. Denies any other new complaints. Still has not had any bowel movements. Pertinent positives and negatives as discussed above, a complete review of systems was performed and all other systems are negative. Vitals Signs Reviewed. General: nontoxic, no distress, appears at stated age Derm: warm, dry, back dressing clean, dry, intact Head: atraumatic, normocephalic, symmetric Eyes: EOMI, no lid lag, anicteric sclera Mouth: no lip lesion, mucus membranes moist Cardiovascular: S1S2 reg, no murmur Lungs: CTA bilateral, no rhonchi, no rales , no accessory muscle use Abdominal: soft, nontender to palpation, no guarding, no appreciable organomegaly Ext: no gross muscle atrophy, no edema, no contractures Neuro: CN II-XI grossly intact, no focal neuro deficits Psych: Alert, oriented, appropriate affect Data Reviewed Today: Pertinent Labs: WBC 16.94, hemoglobin 11.4, sodium 137, potassium 4.3, creatinine 0.7 Imaging: No new imaging Assessment and Plan: Status post L4-5 MIS TLIF Leukocytosis, reactive, anticipated outcome of surgery Mild acute blood loss anemia, anticipated outcome of surgery Hypertension HLD GERD ASTRID on CPAP -On oral Tylenol, oral no chloracetic, IV Dilaudid as needed -On senna when necessary -No other medication changes -Orthopedic surgery note reviewed, possible discharge today or tomorrow -Medically optimized for discharge Thank you for allowing us to participate in the care of this pleasant patient. Do not hesitate to contact us with questions. Someone can be reached from the [facility] hospitalist group all hours of the day at [phone] or via perfect serve. Objective - Vital Signs Vital signs: Vital Signs Temp 97.8 F 11/29/22 07:28 Pulse 89 11/29/22 07:28 Resp 16 11/29/22 07:28 BP 112/71 11/29/22 07:28 Pulse Ox 95 11/29/22 07:28 FiO2 Intake & Output 11/28/22 11/29/22 11/29/22 18:59 06:59 18:59 Intake Total 1750 400 Output Total 550 300 Balance 1200 100 Weight 101.4 kg 101.4 kg Intake: IV 1750 Oral 400 Output: Urine 500 Emesis 300 Estimated Blood Loss 50 Other: # Voids 4 # Emeses 1 - Labs CBC & Chem 7: 11/29/22 05:46 11/29/22 05:46 Labs: Abnormal Lab Results - Last 24 Hours (Table) 11/29/22 11/29/22 Range/Units 05:46 05:46 WBC 16.94 H (4.50-10.00) X 10*3/uL RBC 3.55 L (4.10-5.20) X 10*6/uL Hgb 11.4 L (12.0-15.0) d/dL Hct 35.8 L (37.2-46.3) % MCV 100.8 H (80.0-97.0) FL MCH 32.1 H (27.0-32.0) pg MCHC 31.8 L (32.0-37.0) d/dL Neutrophils # 13.72 H (1.80-7.70) X 10*3/uL Monocytes # 1.49 H (0.20-1.00) X 10*3/uL Eosinophils # 0 L (0.04-0.35) X 10*3/uL Glucose 129 H (70-110) mg/dL
--- NOTE | 2022-11-29 12:47 | P.DS ---
Providers Date of admission: 11/28/22 Expected date of discharge: 11/29/22 Attending physician: Raymond Boyle DO Consults: 11/28/22 11:19 Consult Physician Routine Consulting Provider: Tiffanie Villalobos Consult Reason/Comments: Medical Management s/p L4-L5 MIS TLIF Do you want consulting provider notified?: Yes Primary care physician: [facility] Course: Hospital Course: The patient was evaluated preoperatively and found to have the diagnosis of lumbar stenosis. They underwent appropriate preoperative care and were willing to undergo the intended procedure. They underwent a successful minimally invasive TLIF L4-L5, were recovered appropriately and sent to the floor. While on the floor they worked with physical therapy, occupational therapy and nursing to enhance their recovery experience. Their pain was well controlled through their stay and they were started on appropriate medications, DVT ppx modalities, activity and dietary needs. Daily labs were monitored closely, and transfusions were only used when necessary. Medicine as well as other consulting services have made their input and have helped with our team approach and multidisciplinary care. PT milestones have been met and passed and they have made the recommendation of home with home care for this patient and treating providers agree with this care path. The patient will be discharged home with appropriate medications, instructions and follow-up information and in stable condition. Patient Condition at Discharge: Good Plan - Discharge Summary Discharge Rx Participant: No New Discharge Prescriptions: New Cyclobenzaprine [Flexeril] 5 mg PO TID PRN #90 tablet PRN Reason: Muscle Spasm Gabapentin 300 mg PO TID #90 cap HYDROcodone/APAP 10-325MG [[place] 10-325] 1 tab PO Q4-6H PRN #42 tab PRN Reason: Pain Sennosides/Docusate Sodium [Senna Plus 8.6-50 mg Softgel] 1 each PO DAILY PRN #20 capsule PRN Reason: Constipation Sulfamethox-Tmp 800-160Mg [Bactrim DS 800-160 mg] 1 tab PO Q12HR 5 Days #10 tab Continue Sertraline [Zoloft] 50 mg PO QAM Aspirin [Adult Low Dose Aspirin EC] 81 mg PO QAM Omeprazole 20 mg PO BID lisinopriL [Zestril] 5 mg PO QAM Vit C/Ascorb Sod/Multivit-Min [Emergen-C 500 mg Chewable Tab] 500 mg PO QAM Turmeric Root Extract [Turmeric] 500 mg PO QAM Psyllium Husk [Metamucil] 0.4 gm PO QAM Multivitamins, Thera [Multivitamin (formulary)] 1 tab PO QAM Acetaminophen Tab [Tylenol] 650 mg PO Q4H PRN PRN Reason: Pain Atorvastatin [Lipitor] 20 mg PO QAM Ferrous Sulfate [Iron (65 MG Elemental)] 325 mg PO QAM No Action Cyclobenzaprine [Flexeril] 10 mg PO DAILY PRN PRN Reason: MUSCLE SPASMS Ibuprofen [Motrin] 800 mg PO Q6H PRN PRN Reason: Pain Discharge Medication List Sertraline [Zoloft] 50 mg PO QAM 03/17/14 [History] Aspirin [Adult Low Dose Aspirin EC] 81 mg PO QAM 01/11/16 [History] Omeprazole 20 mg PO BID 08/07/17 [History] Cyclobenzaprine [Flexeril] 10 mg PO DAILY PRN 12/11/19 [History] lisinopriL [Zestril] 5 mg PO QAM 12/11/19 [History] Multivitamins, Thera [Multivitamin (formulary)] 1 tab PO QAM 04/11/21 [History] Vit C/Ascorb Sod/Multivit-Min [Emergen-C 500 mg Chewable Tab] 500 mg PO QAM 04/11/21 [History] Acetaminophen Tab [Tylenol] 650 mg PO Q4H PRN 10/25/21 [History] Ibuprofen [Motrin] 800 mg PO Q6H PRN 10/25/21 [History] Psyllium Husk [Metamucil] 0.4 gm PO QAM 10/25/21 [History] Turmeric Root Extract [Turmeric] 500 mg PO QAM 10/25/21 [History] Atorvastatin [Lipitor] 20 mg PO QAM 05/02/22 [History] Ferrous Sulfate [Iron (65 MG Elemental)] 325 mg PO QAM 08/22/22 [History] Cyclobenzaprine [Flexeril] 5 mg PO TID PRN #90 tablet 11/29/22 [Rx] Gabapentin 300 mg PO TID #90 cap 11/29/22 [Rx] HYDROcodone/APAP 10-325MG [[place] 10-325] 1 tab PO Q4-6H PRN #42 tab 11/29/22 [Rx] Sennosides/Docusate Sodium [Senna Plus 8.6-50 mg Softgel] 1 each PO DAILY PRN #20 capsule 11/29/22 [Rx] Sulfamethox-Tmp 800-160Mg [Bactrim DS 800-160 mg] 1 tab PO Q12HR 5 Days #10 tab 11/29/22 [Rx] Follow up Appointment(s)/Referral(s): Raymond Boyle DO [Doctor of Osteopathic Medicine] - 2 Weeks Activity/Diet/Wound Care/Special Instructions: Spine Discharge and Recovery Instructions keep silver foam dressing on until 12/03/2022. okay to remove dressing on 12/03/2022. May shower directly over incision once dressing is removed Date of Surgery: 11/28/2022 Diagnosis: lumbar spondylolisthesis; lumbar stenosis Procedure: L4-L5 MIS TLIF Medications: See medication list All medication refills should be obtained through your primary care doctor or your clinic spine surgeon. Please discuss prescription refills at your follow up appointment. Do not call the hospital for medication refills. Dressing: Leave your dressing in place for a total of 5 days post operatively. Then you may remove your dressing and leave open to air. Keep the area clean and if not able to keep area clean, then cover with sterile gauze and tape. Showering: You may shower 3 days after your procedure allowing soap and water to run over incision. Do not scrub. Do not soak. Blot dry. Follow up: Please confirm a follow up appointment with your surgeon 3 weeks post operatively. Please make an appointment to follow up with your PCP in 1-2 weeks after surgery for evaluation 3 phase, 3-week plan POST OP WEEKS 1-3 1. Lifting/carrying/pushing/pulling limited to less than 5 pounds. 2. Do not sit for longer than 15 minutes at one time. Get up and walk around. Prolonged sitting is NOT advised. If you lay down, see if you can tolerate laying down on you front (belly side) 3. Walk for periods of 15 minutes = 1 mile but no longer; do it multiple times times each day. 4. Ice your low back after activity. POST OP WEEKS 3-6 1. Lifting limited to less than 20 pounds. 2. Do not sit for longer than 30 minutes at a time. Frequently change positions. Use a sit-to stand workstation or take frequent breaks from sitting if you have returned to work. 3. Walk for 30 minutes each day. If possible, do these three or more times a day POST OP WEEKS 6+ At your 6-week appointment we will give you a physical therapy referral to focus on a core stabilization and strengthening program. You should also work on leg & buttock strengthening, hamstring & quadriceps stretching, and continue a low impact aerobic activity program such as swimming, walking, or riding a stationary bicycle. During the initial 6 weeks after your surgery, you are at the highest risk of re-injuring your spine. You should generally avoid BLTs (bending, lifting and twisting combination motions) and follow the above guidelines to reduce the chance of reinjury. You can anticipate post op appointments in our office at approximately 3 weeks and 6 weeks after your surgery. INCISION CARE: If your incision is not draining you do NOT need to cover it with a dressing. Keep your incision clean, dry and intact. In most cases, we apply skin glue, nakia or sutures to the incision at the time of surgery. This will be like a crust or have the appearance of a scab and will fall off in time on its own. The stitches or nakia need to be removed at 3 weeks post op appointment. You may begin to shower 3 days after surgery (this allows the glue to vergara well). However, please avoid scrubbing the incision site or peeling off any of the skin glue. This will ensure optimal healing of your incision. Also, during this time avoid soaking the incision area in water - this includes swimming pools, hot tubs or baths. No ointments, lotions or oils on the incision until your surgeon allows. Leave nakia, sutures or glue in place. Neurological dysfunction that comes on suddenly can also be a sign of a stroke. Below some common symptoms of a stroke are listed: B - balance difficulty such as sudden onset walking or leaning to one side - NEW E - eye problem such as sudden double vision or trouble seeing on one side - NEW F - Facial weakness or numbness on one side - NEW A - Arm or leg weakness or numbness on one side - NEW S - Slurred speech or difficulty with word finding - NEW T - Time is BRAIN! Call 911 as soon as you recognize these symptoms Diet: Consume a regular diet rich in vegetables and lean protein such as chicken or fish. You should consume in a ratio of approximately 20% fats|40% carbohydrates|40%protein. Vegetables, sweet potatoes, brown rice or quinoa are examples of good carbohydrates. Chips, white bread, cookies and sweets/sugar are examples of bad carbohydrates. Limit your bad carbs, go wild with good carbs. "Life's Simple 7" Guidelines as per [place] [employer] These will help you reclaim your life after surgery and calender machine operator helper in your recovery, keeping in mind your restrictions. (1) Get Active. Physical activity can help people lose weight, control high blood pressure and cholesterol, feel emotionally better, and sleep better. (2) Control Cholesterol. Avoid a diet high in saturated fat, trans fat, & cholesterol. Limit whole milk & cream, ice cream, butter, egg yolks, processed meats (like sausage and hot dogs), and fatty meats. Choose healthy foods that are low in saturated fat, trans fat and cholesterol which include: Fruits and vegetables, fiber rich grain products (like whole grain pasta and brown rice), lean meat such as chicken, fish, nuts, seeds, and legumes. (3) Eat Better. Eat small portions. Shop at the grocery with a list and do not stray from it. Tips for a healthy diet include: Limit sodium intake to less than 1500mg daily, avoid prepackaged, processed, and fast foods, choose a diet rich in fruits, vegetables, and whole grain, high fiber foods, and limit saturated & cholesterol in your diet. (4) Manage Blood Pressure. If you have high blood pressure, you should have a cuff at home so that you can check your blood pressure regularly. Be sure you have a good cuff. An arm one is generally better than a wrist one. Bring the cuff to a doctor's appointment to validate that the measurements that your cuff are taking are accurate. Take your blood pressure twice daily when you are sitting down and relaxing. Record the numbers in a log and bring this log with you to your doctors' appointments. (5) Lose Weight if your BMI is above 25. A healthy BMI is between 19-25. To calculate Your BMI, you may use a Standard BMI Calculator on the NIH BMI website: <www.nhlbi.nih.gov/guidelines/obesity/BMI/bmicalc.htm>. Weigh oneself daily. If you are overweight, set a goal to lose weight. A pound a week loss if needed is a good target. (6) Reduce Blood Sugar. Limit foods and liquids with "added sugars." (Added sugars include sucrose, fructose, glucose, maltose, dextrose, high fructose corn syrup, corn syrup, concentrated fruit juice and honey). (7) Stop Smoking. If you smoke, quitting smoking is one of the best things that you can do for your health. Smoking increases your risk of heart attack, stroke, and peripheral vascular disease, which is a build-up of plaque in your arteries. Please discard all the cigarettes and lighters in your house. Have a plan for what you will do when you have the urge to smoke. Direct and second- hand smoke shortens your life as well as the lives of your family, friends and others around you. For your health and the health of those around you, please consider quitting! Proper Bending Body Mechanics: Maintain a wide stance with one foot slightly in front of the other. Keep your back straight. Bend utilizing the strength in your hips and knees. Do not bend at the waist. Maintain the lifted object at your waist-level close to your body. Avoid lifting weight that causes immediately pain or pain anywhere in the body afterwards. Smoking/Nicotine If there was ever one thing that you could do to increase your overall health, decrease your risk of cardiovascular problems by about 39% the second you make the choice, it is to STOP SMOKING. Your body's most instant gratification is the second you stop smoking. We have all heard the studies, read the articles but it is true, smoking is extremely bad for your overall health, and moreover it is detrimental to your bone health. Nicotine, IN ANY FORM, kills bone cells, prevents your body from healing fractures, and significantly prolongs healing after surgery. In spine surgery specifically, it increases your risk of not healing your bones to create a fusion and increases your risk of having a revision surgery due to this up to 60%. I know it is hard. I know it feels impossible. But there are ways. Take control of your life. We are here to help you through it. And when you are ready, ask us and we can direct you to help if you desire. Use the START Plan to Quit Smoking (please visit the Helpguide.org website listed below for more information): S = Set a quit date. Choose a date within the next 2 weeks, so you have enough time to prepare without losing your motivation to quit. If you mainly smoke at work, quit on the weekend, so you have a few days to adjust to the change. T = Tell family, friends, and co-workers that you plan to quit. Let your friends and family in on your plan to quit smoking and tell them you need their support and encouragement to stop. Look for a quit bev who wants to stop smoking as well. You can help each other get through the rough times. A = Anticipate and plan for the challenges you'll face while quitting. Most people who begin smoking again do so within the first 3 months. You can help yourself make it through by preparing ahead for common challenges, such as nicotine withdrawal and cigarette cravings. R = Remove cigarettes and other tobacco products from your home, car, and work. Throw away all your cigarettes (no emergency pack!), lighters, ashtrays, and matches. Wash your clothes and freshen up anything that smells like smoke. Shampoo your car, clean your drapes and carpet, and steam your furniture. T = Talk to your doctor about getting help to quit. Your doctor can prescribe medication to help with withdrawal and suggest other alternatives. If you can't see a doctor, you can get many products over the counter at your local pharmacy or grocery store, including the nicotine patch, nicotine lozenges, and nicotine gum. Resources for Quitting Smoking: <https://www.[place].gov/documents/[facility]/Quit_Tobacco_Resources_for_patients_313 480_7.pdf> Supplementation: Take recommended dosages of Vitamin D and Calcium to help fortify your bones and help them to heal. See your health maintenance packet for dosages and recommended levels. DVT/VTE prophylaxis: You will be given compression stockings from the hospital. Wear these daily for the first two weeks after surgery. You may take them off at night. You may be prescribed a medication to help thin your blood. Take this as directed. If you are not prescribed this medication, early and frequent ambulation has been shown to be the best prophylaxis to deep vein thrombosis and sequelae related to this event. Discharge Disposition: HOME WITH HOME HEALTH SERVICES
[2022-11-29 14:54] VITALS: BP 109/69; PULSE 85; RESP 16; TEMP 98.2
== END 2022-11-29 15:58 | disposition home health service (06) ==
LOC: OR 08:39 → 4SSUR 13:32 → OR 11-29 15:58
PROVIDERS: ATTEND Orthopaedic Surgery
DX: M43.16 Spondylolisthesis, lumbar region (principal); M48.061 Spinal stenosis, lumbar region without neurogenic claudication; M47.26 Other spondylosis with radiculopathy, lumbar region; I10 Essential (primary) hypertension; E78.5 Hyperlipidemia, unspecified; I35.1 Nonrheumatic aortic (valve) insufficiency; E66.01 Morbid (severe) obesity due to excess calories; Z68.41 Body mass index [BMI] 40.0-44.9, adult; K21.9 Gastro-esophageal reflux disease without esophagitis; G47.33 Obstructive sleep apnea (adult) (pediatric); Z99.89 Dependence on other enabling machines and devices; Z87.19 Personal history of other diseases of the digestive system; Z87.891 Personal history of nicotine dependence; Z79.82 Long term (current) use of aspirin; Z79.899 Other long term (current) drug therapy; Z79.1 Long term (current) use of non-steroidal anti-inflammatories (NSAID); Z88.0 Allergy status to penicillin; Z91.048 Other nonmedicinal substance allergy status; Z91.040 Latex allergy status; Z88.5 Allergy status to narcotic agent; Z98.0 Intestinal bypass and anastomosis status; D50.0 Iron deficiency anemia secondary to blood loss (chronic)
CPT/HCPCS: 22633; 22840; 22853; 61783; 20930; 20936; 86900; 86901; 80048; 84132; 85025; 86850; 72100; 72131; C1713; J2001; J0690 ×2; J2405 ×2; J1170

== ENCOUNTER → 2023-07-31 | Outpatient (CLI) | payer MEDICARE, BC ==
[2023-07-31 16:40] LABS: Basophils # (A) 0.04 X 10*3/uL (0.00-0.10); Basophils % (A) 0.5 %; Eosinophils # (A) 0.45 X 10*3/uL (0.04-0.35); Eosinophils % (A) 5.8 %; HCT 41.8 % (37.2-46.3); HGB 13.6 g/dL (12.0-15.0); Lymphocytes # (A) 2.56 X 10*3/uL (0.90-5.00); Lymphocytes % (A) 33.2 %; MCH 31.8 pg (27.0-32.0); MCHC 32.5 g/dL (32.0-37.0); MCV 97.7 FL (80.0-97.0); Mean Platelet Volume 11.6 FL (9.5-12.2); Monocytes # (A) 0.66 X 10*3/uL (0.20-1.00); Monocytes % (A) 8.6 %; NRBC Per 100 WBC 0 X 10*3/uL (0.00-0.01); Neutrophils # (A) 3.98 X 10*3/uL (1.80-7.70); Neutrophils % (A) 51.6 %; Platelet Count 342 X 10*3/uL (140-440); RBC 4.28 X 10*6/uL (4.10-5.20); RDW 12.4 % (11.5-14.5); WBC 7.71 X 10*3/uL (4.50-10.00)
[2023-07-31 16:43] LABS: BUN/Creat Ratio 13.75 Ratio (12.00-20.00); Calcium 9.7 mg/dL (8.7-10.3); Carbon Dioxide 25.2 mmol/L (21.6-31.8); Chloride 103 mmol/L (96-109); Glucose 108 mg/dL (70-110); Potassium 4.9 mmol/L (3.5-5.5); Sodium 139 mmol/L (135-145)
[2023-07-31 16:47] LABS: INR 1.02 sec (0.93-1.11)
== END | disposition home or self-care (01) ==
LOC: LABWHC1 12:57
PROVIDERS: ATTEND Orthopaedic Surgery
DX: Z01.812 Encounter for preprocedural laboratory examination (principal); Z22.322 Carrier or suspected carrier of Methicillin resistant Staphylococcus aureus; M17.11 Unilateral primary osteoarthritis, right knee
CPT/HCPCS: 36415; 80048; 85025; 85610; 87070

== ENCOUNTER 2023-08-20 10:26 | Day surgery (SDC) | payer BC, MEDICARE ==
--- NOTE | 2023-08-19 13:14 | HP ---
HISTORY AND PHYSICAL DATE OF SURGERY: 08/20/2023. HISTORY OF PRESENT ILLNESS: Kimberly Raygoza is a 58-year-old patient, seen with symptomatic right knee osteoarthritis. We discussed the options regarding treatment. She elected to proceed with right total knee arthroplasty. Consent regarding procedure was obtained. Cardiac clearance was provided by Dr. Wright. Primary care physician is Dr. Narendra Quispe. PAST MEDICAL HISTORY: Hypertension and cardiovascular disease. PAST SURGICAL HISTORY: Carpal tunnel surgery, cholecystectomy, hysterectomy, and knee arthroscopy. DAILY MEDICATIONS: 1. Aspirin. 2. Ibuprofen. 3. Lisinopril. 4. Prilosec. 5. Zoloft. ALLERGIES: Latex, penicillin, and Vicodin. SOCIAL HISTORY: She denies tobacco use. PHYSICAL EVALUATION OF THE RIGHT KNEE: Range of motion is 0 to 130 degrees. Mild effusion. Tenderness along the medial joint line. Positive medial Rose's. There is crepitance along the medial patellofemoral compartments with range of motion. Also pain with patellofemoral compression. Ligaments are stable. Hip rotation without pain. Distal neurovascular exam is intact. IMAGING STUDIES: Radiographs of the right knee revealed severe osteoarthritic changes. IMPRESSION: 1. Right knee osteoarthritis. 2. Hypertension. PLAN: Right total knee arthroplasty. MMODL / IJN: [id number] /
[2023-08-20] MEDS: LACTATED RINGERS 1,000 ML IV SCH ×2 (10:14→16:31)
[~2023-08-20 10:26] MED LIST changes: -ACETAMINOPHEN TAB 500 MG TAB PO PRN; -GABAPENTIN 300 MG CAP PO PRN; -ONDANSETRON 4 MG/2 ML VIAL IVP ONE; -ONDANSETRON 4 MG/2 ML VIAL IVP PRN; -TRANEXAMIC 1,000 MG/100ML-NACL 1,000 MG in SALINE 1 100ML.BAG IVPB PRN
[2023-08-20] MEDS: DEXAMETHASONE SOD PHOSPHATE 4 MG/ML 1 ML VIAL IVP ONE (11:00)
[2023-08-20] MEDS: MELOXICAM 7.5 MG TAB PO PRN (11:00)
[2023-08-20] MEDS: ONDANSETRON 4 MG/2 ML VIAL IVP ONE (11:00)
[2023-08-20] MEDS: ACETAMINOPHEN TAB 500 MG TAB PO PRN (11:00)
[2023-08-20] MEDS: MIDAZOLAM 2 MG/2 ML VIAL IVP ONE (11:19)
[2023-08-20] MEDS ORDERED: fentaNYL (PF) 50 MCG/ML 2 ML AMP ONE (12:30)
[2023-08-20] MEDS ORDERED: ROPIVACAINE 5 MG/ML 30 ML VIAL ONE (12:30)
[2023-08-20] MEDS ORDERED: TRANEXAMIC 1,000 MG/100ML-NACL PREMIX BAG ONE (12:30)
[2023-08-20] MEDS ORDERED: MIDAZOLAM 2 MG/2 ML VIAL ONE (12:30)
[2023-08-20] MEDS ORDERED: DEXAMETHASONE SOD PHOSPHATE 4 MG/ML 1 ML VIAL ONE (12:30)
[2023-08-20] MEDS ORDERED: PROPOFOL 10 MG/ML 20 ML VIAL IV ONE (12:30)
[2023-08-20] MEDS: TRANEXAMIC 1,000 MG/100ML-NACL 1,000 MG in SALINE 1 100ML.BAG IVPB PRN ×2 (12:34→13:44)
[2023-08-20] MEDS: ceFAZolin 1,000 MG in SODIUM CHLORIDE 0.9% 1,000 ML IRRIGATION ONE (13:07)
--- NOTE | 2023-08-20 14:22 | P.OP ---
Date of Procedure: 08/20/23 Preoperative Diagnosis: Right knee osteoarthritis Postoperative Diagnosis: Right knee osteoarthritis Procedure(s) Performed: Right total knee arthroplasty Implants: 1. DePuy attune size 4 narrow right cruciate retaining cemented femur 2. DePuy attune size 3 fixed-bearing cemented tibial baseplate 3. DePuy attune size 4 fixed-bearing cruciate retaining 10 mm polyethylene tibial insert 4. DePuy attune 32 mm all polyethylene cemented patella Anesthesia: regional (Adductor canal catheter, iPAQ block), spinal Surgeon: Reji Kulkarni Can Labeler #1: Patrick Ca Estimated Blood Loss (ml): 30 Pathology: none sent Condition: stable Disposition: PACU Indications for Procedure: 58-year-old patient seen with symptomatic right knee osteoarthritis. After having treatment options discussed, she elected to proceed with total knee arthroplasty. Operative Findings: See description of procedure Description of Procedure: Patient was taken to the operative suite after having an adductor canal catheter placed by the department of anesthesia. Patient underwent a spinal anesthetic by the department of anesthesia. Patient was given preoperative IV intake antibiotics and TXA. A well-padded tourniquet was placed about the right lower extremity. The lower extremity was then prepped and draped in the normal sterile orthopedic fashion. The extremity was elevated, a tourniquet was insufflated to 300. A standard anterior incision was made sharply through skin. Dissection was taken down through the subcutaneous soft tissues down to the extensor mechanism. A medial arthrotomy was performed, patella was everted and knee was flexed. There was advanced osteoarthritis noted. I introduced my distal intramedullary femoral drill. I then introduced the distal femoral cutting jig. Guilherme LUQUE secured the cutting jig with 2 pins. I held retractors in position while Guilherme LUQUE performed the distal femoral resection through the guide area we now removed her distal femoral cutting guide. We now placed our 4-in-1 femoral cutting block and positioned and it was secured with 2 pins by Guilherme LUQUE while I held the block in position. The distal femoral finishing was now completed. A proximal tibial cutting guide was positioned. I held the guide in the appropriate position with both hands while Guilherme LUQUE inserted stabilizing pins into the guide. Proximal tibial cut was made. We now placed a trial femoral component into position, along with an appropriate size tibial tray and insert. We now took the knee through range of motion and had full extension good flexion and good overall soft tissue balance noted. The patella was everted and stabilized with 2 towel clips held by Guilherme LUQUE while I performed a flush with patellar quad tendon utilizing a fresh sawblade. We templated the patella, appropriate drill holes were made. An appropriate trial patella was positioned, knee was taken through full range of motion with the patella tracking very nicely. The trial patella was removed. Drill holes were made through the femoral component. All trial components were removed after marking off the appropriate rotation of the tibia. Retractors were now positioned along the proximal tibia. An appropriate keel punch was made with the appropriate size tibial guide by myself on Guilherme LUQUE assisted by holding retractors. At this point appropriate size implants were chosen and opened. The joint was irrigated copiously with pulse lavage mechanical irrigation. The wound was irrigated with pulse lavage mechanical irrigation. We mixed antibiotic methylmethacrylate. We placed the knee into flexion. We placed multiple retractors assisted by Guilherme LUQUE to expose the proximal tibia. Once the methyl methacrylate was ready, the tibial component was cemented into place removing any excess methylmethacrylate form by both myself and Guilherme LUQUE. The femoral component was cemented into place removing the removing any excess methylmethacrylate performed by both myself and Guilherme LUQUE. We then inserted the appropriate size polyethylene tibial insert. We made sure that it was locked into position. We took the knee into full extension, and then back in a flexion making sure we had removed any excess methylmethacrylate. The patellar component was then cemented down and secured with clamp. Excess methylmethacrylate removed. We kept the knee in full extension, patellar clamp in position until methylmethacrylate had hardened. Once it had hardened the patellar clamp was removed. The knee was taken through full range of motion. The patella tracked nicely. There was good soft tissue balancing. The tourniquet was now released. Additional hemostasis was achieved via electrocautery. A second gram of TXA was given. The wound again was irrigated with pulse lavage mechanical irrigation. The extensor mechanism was repaired with Ethibond suture. We checked the repair with range of motion and it was stable. The subcutaneous soft tissues were repaired with Vicryl in layers. The skin was approximated with pernio/Dermabond. Sterile dressings were applied followed by loose web roll and John bandage. The patient was transferred to a bed, and taken to recovery in stable and satisfactory condition. Guilherme LUQUE assisted with this complex procedure.
[2023-08-20] MEDS ORDERED: NALOXONE 0.4 MG/ML 1 ML VIAL IV PRN (14:23)
[2023-08-20] MEDS ORDERED: ACETAMINOPHEN TAB 325 MG TAB PO PRN (14:23)
[2023-08-20] MEDS ORDERED: HYDROmorphone 0.5 MG/0.5 ML SYRINGE IVP PRN (14:23)
[2023-08-20] MEDS ORDERED: ONDANSETRON 4 MG/2 ML VIAL IVP PRN (14:23)
[2023-08-20] MEDS ORDERED: hydrOXYzine pamoate 25 MG CAP PO PRN (14:23)
--- NOTE | 2023-08-20 15:16 | XR ---
EXAMINATION TYPE: XR knee limited RT DATE OF EXAM: 08/20/2023 3:05 PM CLINICAL INDICATION:Female, 58 years old with history of Evaluation for Postop abnormality and alignm ent; [facility] COMPARISON: None. TECHNIQUE: XR knee limited RT; examined in Frontal, lateral projections. FINDINGS: Status post total knee arthroplasty changes with hardware in appropriate alignment and in tact. No evidence of fracture. Subcutaneous lucencies and lucencies within the joint consistent with surgical changes. Skin nakia are present. IMPRESSION: Status post total knee arthroplasty changes with hardware intact and appropriate alignment. No fractu res identified.
[2023-08-20] MEDS: HYDROmorphone 0.5 MG/0.5 ML SYRINGE IVP PRN (16:46)
--- NOTE | 2023-08-20 17:50 | P.CONS ---
History of Present Illness - Reason for Consult Consult date: 08/20/23 Medical management Requesting physician: Reji Kulkarni - Chief Complaint Knee surgery - History of Present Illness This is a very pleasant 58-year-old patient who follows with Dr. Quispe. Chronic stable medical conditions include GERD, hyperlipidemia, hypertension, osteoarthritis, obstructive sleep apnea uses CPAP, hiatal hernia, hemorrhoids, IBS, l leaky aortic valve, anxiety. Patient undergone right total knee arthroplasty. Some pain. Tolerating her supper. No nausea vomiting. No cardiac history. at the bedside Review of systems: GEN.: None EYES: None HEENT: None NECK: None RESPIRATORY: None CARDIOVASCULAR: None GASTROINTESTINAL: None GENITOURINARY: None MUSCULOSKELETAL: N joint pains LYMPHATICS: None HEMATOLOGICAL: None PSYCHIATRY: None NEUROLOGICAL: None Social history: . Alcohol rarely. No smoking. Physical examination: VITAL SIGNS: 97.6, 84, 20, 127 x 86, 92% room air GENERAL: BMI 42.9, sitting up, eating supper comfortable. EYES: Pupils equal. Conjunctiva cesilia l. HEENT: External appearance of nose and ears normal, oral cavity grossly normal. NECK: JVD not raised; masses not palpable. HEART: First and second heart sounds are normal; no edema. LUNGS: Respiratory rate normal; clear to auscultation. ABDOMEN: Soft, nontender, liver spleen not palpable, no masses palpable. PSYCH: Alert and oriented x3; mood and affect cesilia l. MUSCULOSKELETAL:No Clubbing/cyanosis;muscles-grossly intact. Dressing over the right knee. WILLIAM stockings. OA NEUROLOGICAL: Cranial nerves grossly intact; no facial asymmetry, power and sensation grossly intact. LYMPHATICS: No lymph nodes palpable in the axilla and neck INVESTIGATIONS, reviewed in the clinical context: July 30: White count 7.7 hemoglobin 13.6 platelets 342 sodium 139 potassium 4.9 creatinine 0.8 Assessment plan: -Right total knee arthroplasty IV cefazolin for infection prophylaxis. Subcu Lovenox for DVT prophylaxis pain control -Essential hypertension Zestril 5 mg a day -Hyperlipidemia Lipitor 20 mg a day -GERD Omeprazole 40 mg a day -Anxiety Zoloft 50 mg a day -Irritable bowel syndrome Metamucil -Morbid obesity BMI 42.9 Weight loss measures -Obstructive sleep apnea and uses CPAP Care was discussed with the patient and at the bedside. Questions answered. Thank you Dr. Kulkarni Past Medical History Past Medical History: GERD/Reflux, Hyperlipidemia, Hypertension, Osteoarthritis (OA), Sleep Apnea/CPAP/BIPAP, Vascular Disorder Additional Past Medical History / Comment(s): HIATAL HERNIA and colon polyps/hemorrhoids. IBS. leaky aortic heart valve. USES CPAP. salivary adenitis. History of Any Multi-Drug Resistant Organisms: None Reported Past Surgical History: Cholecystectomy, Heart Catheterization, Hysterectomy, Orthopedic Surgery Additional Past Surgical History / Comment(s): NIYAH, NASAL surgery, laparoscopy/benign uterine cyst, SERGIO KNEES ARTHROSCOPY,SERGIO CARPAL TUNNEL x2, SERGIO WRIST GANGLION CYST x2, CYST REMOVED LT ARM, salivary gland surg. EGD, co lonoscopies, heart cath r/t shortness of breath with activity,( no findings of note) 2moles frozen off back. Right total knee arthroplasty. pain clinic procedures, Back surgery Past Anesthesia/Blood Transfusion Reactions: No Reported Reaction, Family History of Problems w/ Anesthesia Additional Past Anesthesia/Blood Transfusion Reaction / Comm: Pt has never received blood. PONV after hysterectomy and back surgery. Brother PONV Past Psychological History: Anxiety Additional Psychological History / Comment(s): Pt resides with her spouse. Smoking Status: Former smoker Past Alcohol Use History: Rare Additional Past Alcohol Use History / Comment(s): quit smoking 20 yrs ago, smoked 1 Pack/ week off and on less than 1 year. Past Drug Use History: None Reported - Past Family History Mother Family Medical History: No Reported History Father Additional Family Medical History / Comment(s): Massive SD age 65yrs and Sister(s) Family Medical History: Blood Disorder, Cancer Additional Family Medical History / Comment(s): Antiphospholipid syndrome. Brother(s) Family Medical History: Myocardial Infarction (SD) Medications and Allergies Home Medications Medication Instructions Recorded Confirmed Type Sertraline [Zoloft] 50 mg PO QAM 03/17/14 08/20/23 History Aspirin [Adult Low Dose Aspirin EC] 81 mg PO QAM 01/11/16 08/20/23 History Omeprazole 40 mg PO QAM 08/07/17 08/20/23 History lisinopriL [Zestril] 5 mg PO QAM 12/11/19 08/20/23 History Vit C/Ascorb Sod/Multivit-Min 500 mg PO QAM 04/11/21 08/20/23 History [Emergen-C 500 mg Chewable Tab] Psyllium Husk [Metamucil] 0.4 gm PO QAM 10/25/21 08/20/23 History Turmeric Root Extract [Turmeric] 500 mg PO QAM 10/25/21 08/20/23 History Atorvastatin [Lipitor] 20 mg PO QAM 05/02/22 08/20/23 History Cyclobenzaprine [Flexeril] 5 mg PO TID PRN #90 tablet 11/29/22 08/20/23 Rx Acetaminophen Tab [Tylenol Tab] 1,000 mg PO Q6HR PRN 08/10/23 08/20/23 History Allergies Allergy/AdvReac Type Severity Reaction Status Date / Time Penicillins Allergy Severe Rash/Hives Verified 08/20/23 10:46 hydrocodone bitartrate Allergy Mild Rash/Hives Verified 08/20/23 10:46 [From Vicodin] adhesive Allergy Rash/Hives Verified 08/20/23 10:46 Latex, Natural Rubber Allergy Rash/Hives Verified 08/20/23 10:46 Physical Exam Vitals: Vital Signs Temp Pulse Resp BP Pulse Ox 08/20/23 16:07 97 08/20/23 16:05 97.6 F 84 20 127/86 92 L 08/20/23 15:35 68 16 124/67 100 08/20/23 15:20 67 16 133/69 100 08/20/23 15:05 72 16 119/64 100 08/20/23 14:50 65 16 108/63 100 08/20/23 14:35 96.8 F L 79 15 99/50 97 08/20/23 11:39 75 16 133/72 98 08/20/23 10:42 98 F 84 16 131/61 97 Intake and Output 08/20/23 08/20/23 08/20/23 06:59 14:59 22:59 Intake Total 1451 Output Total 30 Balance 1421 Intake: IV 1451 Output: Estimated Blood Loss 30 Other: # Voids 1 Weight 106.4 kg 106.4 kg
[2023-08-20] MEDS: traMADol 50 MG TAB PO PRN (18:44)
[2023-08-20] MEDS: HYDROmorphone 1 MG/ML 1 ML SYRINGE IVP PRN (20:10)
--- NOTE | 2023-08-20 20:30 | P.ANPRN ---
Procedure Note - Anesthesia - Nerve Block Performed Right Rubyck Single Time Out Performed: Yes Date of Procedure: 08/20/23 Procedure Start Time: 11:18 Procedure Stop Time: 11:29 Location of Patient: PreOp Indication: Acute Post-Operative Pain, Requested by Surgeon Sedation Type: Sedate with meaningful contact maintained Preparation: Sterile Prep, Sterile Dressing Position: Supine Catheter: Indwelling Needle Types: Pajunk Needle Gauge: 21 Ultrasound used to visualize needle placement: Yes Ultrasound used to observe medication spread: Yes Blood Aspirated: No Pain Paresthesia on Injection Noted: No Resistance on Injection: Normal Image Stored and Saved: Yes Events: Uneventful and Well Tolerated (Ropivacaine 0.5% 20 cc plus dexamethasone 4 mg)
--- NOTE | 2023-08-20 20:31 | P.ANPRN ---
Procedure Note - Anesthesia - Nerve Block Performed Right Rubyck Single Time Out Performed: Yes Date of Procedure: 08/20/23 Procedure Start Time: 11:30 Procedure Stop Time: 11:33 Location of Patient: PreOp Indication: Acute Post-Operative Pain, Requested by Surgeon Sedation Type: Sedate with meaningful contact maintained Preparation: Sterile Prep Position: Supine Needle Types: Pajunk Needle Gauge: 21 Ultrasound used to visualize needle placement: Yes Ultrasound used to observe medication spread: Yes Blood Aspirated: No Pain Paresthesia on Injection Noted: No Resistance on Injection: Normal Image Stored and Saved: Yes Events: Uneventful and Well Tolerated (Ropivacaine 0.5% 25 cc plus dexamethasone 4 mg)
[2023-08-20] MEDS: SENNOSIDES-DOCUSATE SODIUM 1 EACH TAB PO SCH (21:29)
[2023-08-21] MEDS: CYCLOBENZAPRINE 5 MG TAB PO PRN (00:38)
[2023-08-21 08:15] LABS: Basophils # (A) 0.03 X 10*3/uL (0.00-0.10); Basophils % (A) 0.2 %; Eosinophils # (A) 0 X 10*3/uL (0.04-0.35); Eosinophils % (A) 0 %; HCT 36.6 % (37.2-46.3); HGB 11.8 g/dL (12.0-15.0); Lymphocytes # (A) 1.76 X 10*3/uL (0.90-5.00); Lymphocytes % (A) 11.8 %; MCHC 32.2 g/dL (32.0-37.0); MCV 99.2 FL (80.0-97.0); Mean Platelet Volume 11.8 FL (9.5-12.2); Monocytes # (A) 1.25 X 10*3/uL (0.20-1.00); Monocytes % (A) 8.4 %; NRBC Per 100 WBC 0 X 10*3/uL (0.00-0.01); Neutrophils # (A) 11.88 X 10*3/uL (1.80-7.70); Neutrophils % (A) 79.3 %; Platelet Count 284 X 10*3/uL (140-440); RBC 3.69 X 10*6/uL (4.10-5.20); RDW 12.2 % (11.5-14.5); WBC 14.97 X 10*3/uL (4.50-10.00)
[2023-08-21] MEDS: MELOXICAM 7.5 MG TAB PO SCH (08:26)
[2023-08-21] MEDS: ATORVASTATIN 20 MG TAB PO SCH (08:26)
[2023-08-21] MEDS: SERTRALINE 50 MG TAB PO SCH (08:27)
[2023-08-21] MEDS: lisinopriL 5 MG TAB PO SCH (08:27)
[2023-08-21] MEDS: PANTOPRAZOLE 40 MG TABLET PO SCH (08:27)
[2023-08-21] MEDS: ASCORBIC ACID 500 MG TAB PO SCH (08:27)
[2023-08-21] MEDS: ENOXAPARIN 30 MG/0.3 ML SYRINGE SQ SCH (08:28)
[2023-08-21] MEDS: PSYLLIUM HUSK 100% 6 GM PACKET PO SCH (08:28)
[2023-08-21 08:42] VITALS: BP 106/70; PULSE 96; RESP 17; TEMP 97.7
--- NOTE | 2023-08-21 10:00 | P.DS ---
Providers Date of admission: 08/20/2023 Expected date of discharge: 08/21/23 Attending physician: Reji Kulkarni Consults: 08/20/23 14:55 Consult Physician Routine Consulting Provider: Alex Justice Consult Reason/Comments: medical management Do you want consulting provider notified?: Yes Primary care physician: [facility] Course: Date of admission: 08/20/2023 Date of discharge: 08/21/2023 Admission diagnosis: right knee osteoarthritis Discharge diagnosis:same Attending physician: Dr. Kulkarni Surgical procedures: right total knee arthroplasty Brief history: Patient is a 58-year-old female with a history of progressive primary right knee osteoarthritis. At this point patient has failed conservative treatment measures and has opted to proceed with a elective right total knee arthroplasty. Hospital course: Details of patient's surgery can be found in operative report. Patient tolerated the procedure well and was subsequently transported to orthopedic floor. Patient's orthopeidc and medical care was provided daily. Patient had daily laboratory tests performed for evaluation of overall blood counts. Patient had daily physical therapy to include strengthening range of motion as well as education with walker ambulation. Patient was treated with Lovenox for their postoperative DVT prophylaxis during their inpatient stay. Patient was noted to have a relatively uneventful postoperative course. Patient reported satisfactory pain control with oral pain medications by postoperative day 1. Patient showed satisfactory progress with physical therapy. Patient moved steadily through the program and had no difficulty meeting the goals by postoperative day 1. Given patient's otherwise satisfactory course and having met physical therapy goals, plan is to discharge patient home with health services on postoperative day 1. Discharge condition/disposition: Patient will be discharged home with health services in stable condition. Discharge medications: Instructions are given on resumption of patient's normal daily medications per primary care recommendation, in addition patient will be prescribed tramadol; Flexeril; senna; patient already has asprin at home. to take aspirin 81 mg twice a day 30 days Discharge instructions: 1. Wound care and infection precautions, keep incision dry and covered while showering, no lotions, creams, moisturizers. No soaking, tubs, pools, hottubs. Do not scrub over the incision. 2. Weight-bear [as tolerated] with walker / cane until follow-up. 3. Ice and elevate when necessary. Do not exceed 20 minutes per hour with ice pack. 4. Utilize compression sleeve until seen at first follow up appointment. 5. Visiting nursing care. 6. Home physical therapy including home CPM. 7. Pain meds and anticoagulants per prescription. 8. Pain medication has potential to cause constipation. Increase oral fluid and fiber intake. Contact primary care provider if you have not had a bowel movement within 48 hours after discharge 9. No anti-inflammatory medication until discussed at first post operative visit, this including Motrin, Aleve, Mobic, Diclofenac. 10. Follow up in office at 2 weeks postop with Guilherme Ca PA-C / Paul Mae PA-C 11. Follow up with your primary care doctor 7-10 days after discharge. 12. Contact [facility] with any questions, . keep incision clean, dry, intact. While showering, cover silver foam dressing with saran wrap. Keep silver foam dressing on until 08/27/2023. Dressing may be removed on 08/27/2023. Once dressing is removed it is okay shower directly over incision once dressing is removed. Assessment: right knee osteoarthritis Procedures: right total knee arthroplasty Patient Condition at Discharge: Good Plan - Discharge Summary Discharge Rx Participant: No New Discharge Prescriptions: New Cyclobenzaprine [Flexeril] 5 mg PO TID #21 tablet Sennosides/Docusate Sodium [Senna Plus 8.6-50 mg Softgel] 1 each PO DAILY #20 capsule traMADol HCL 50 mg PO Q6H #36 tab Continue Aspirin [Adult Low Dose Aspirin EC] 81 mg PO BID No Action Sertraline [Zoloft] 50 mg PO QAM Omeprazole 40 mg PO QAM lisinopriL [Zestril] 5 mg PO QAM Vit C/Ascorb Sod/Multivit-Min [Emergen-C 500 mg Chewable Tab] 500 mg PO QAM Turmeric Root Extract [Turmeric] 500 mg PO QAM Psyllium Husk [Metamucil] 0.4 gm PO QAM Cyclobenzaprine [Flexeril] 5 mg PO TID PRN #90 tablet PRN Reason: Muscle Spasm Atorvastatin [Lipitor] 20 mg PO QAM Acetaminophen Tab [Tylenol Tab] 1,000 mg PO Q6HR PRN PRN Reason: Pain Discharge Medication List Sertraline [Zoloft] 50 mg PO QAM 03/17/14 [History] Aspirin [Adult Low Dose Aspirin EC] 81 mg PO BID 01/11/16 [History] Omeprazole 40 mg PO QAM 08/07/17 [History] lisinopriL [Zestril] 5 mg PO QAM 12/11/19 [History] Vit C/Ascorb Sod/Multivit-Min [Emergen-C 500 mg Chewable Tab] 500 mg PO QAM 03/22 07/11 [History] Psyllium Husk [Metamucil] 0.4 gm PO QAM 10/25/21 [History] Turmeric Root Extract [Turmeric] 500 mg PO QAM 10/25/21 [History] Atorvastatin [Lipitor] 20 mg PO QAM 05/02/22 [History] Cyclobenzaprine [Flexeril] 5 mg PO TID PRN #90 tablet 11/29/22 [Rx] Acetaminophen Tab [Tylenol Tab] 1,000 mg PO Q6HR PRN 08/10/23 [History] Cyclobenzaprine [Flexeril] 5 mg PO TID #21 tablet 08/21/23 [Rx] Sennosides/Docusate Sodium [Senna Plus 8.6-50 mg Softgel] 1 each PO DAILY #20 capsule 08/21/23 [Rx] traMADol HCL 50 mg PO Q6H #36 tab 08/21/23 [Rx] Follow up Appointment(s)/Referral(s): Patrick Ca PAC [PHYSICIAN [facility]] - 2 Weeks Patient Instructions/Handouts: Knee Replacement (DC), Knee Replacement (GEN) Activity/Diet/Wound Care/Special Instructions: Discharge instructions: 1. Wound care and infection precautions, keep incision dry and covered while showering, no lotions, creams, moisturizers. No soaking, tubs, pools, hottubs. Do not scrub over the incision. 2. Weight-bear [as tolerated] with walker / cane until follow-up. 3. Ice and elevate when necessary. Do not exceed 20 minutes per hour with ice pack. 4. Utilize compression sleeve until seen at first follow up appointment. 5. Visiting nursing care. 6. Home physical therapy including home CPM. 7. Pain meds and anticoagulants per prescription. 8. Pain medication has potential to cause constipation. Increase oral fluid and fiber intake. Contact primary care provider if you have not had a bowel movement within 48 hours after discharge 9. No anti-inflammatory medication until discussed at first post operative visit, this including Motrin, Aleve, Mobic, Diclofenac. 10. Follow up in office at 2 weeks postop with Guilherme Ca PA-C / Paul Mae PA-C 11. Follow up with your primary care doctor 7-10 days after discharge. 12. Contact [facility] with any questions, . keep incision clean, dry, intact. While showering, cover silver foam dressing with saran wrap. Keep silver foam dressing on until 08/27/2023. Dressing may be removed on 08/27/2023. Once dressing is removed it is o gerald shower directly over incision once dressing is removed. Discharge Disposition: HOME WITH HOME HEALTH SERVICES
--- NOTE | 2023-08-21 10:09 | P.PN ---
Subjective Progress Note Date: 08/21/23 Principal diagnosis: right knee osteoarthritis patient was seen at bedside this morning sitting up in chair with dressing present over right anterior knee. Patient says she did work with therapy this morning and walked around the room and up-and-down steps. Patient says she is looking forward to going home later stay. Patient says her spouse will help her out when she is home. Patient says she does have a walker at home. Patient says she has urinated since yesterday without issue. She says she has not had a bowel movement yet, however, patient says she has been passing gas. Patient denies chest pain, fever, shortness of breath, nausea, vomiting, change in vision, loss of bowel/bladder control. Objective - Vital Signs Vital signs: Vital Signs Temp 97.7 F 08/21/23 07:10 Pulse 96 08/21/23 07:10 Resp 17 08/21/23 07:10 BP 106/70 08/21/23 07:10 Pulse Ox 93 L 08/21/23 07:10 FiO2 Intake & Output 08/20/23 08/21/23 08/21/23 18:59 06:59 18:59 Intake Total 1451 250 Output Total 30 Balance 1421 250 Weight 106.4 kg Intake: IV 1451 Oral 250 Output: Estimated Blood Loss 30 Other: # Voids 1 5 - Exam right knee: Incision is clean, dry, and intact. The silver foam dressing is in good condition. There is minimal soft tissue swelling and ecchymosis surrounding the medial and lateral aspects of the incision. Calf is soft, no tenderness with palpation. Plantar flexion, dorsiflexion, EHL, FHL are intact. Sensory exam to light touch throughout the extremity is intact, dorsal pedis pulses 2+. - Labs CBC & Chem 7: 08/21/23 05:00 Labs: Abnormal Lab Results - Last 24 Hours (Table) 08/21/23 Range/Units 05:00 WBC 14.97 H (4.50-10.00) X 10*3/uL RBC 3.69 L (4.10-5.20) X 10*6/uL Hgb 11.8 L (12.0-15.0) g/dL Hct 36.6 L (37.2-46.3) % MCV 99.2 H (80.0-97.0) FL Immature Gran # 0.05 H (0.00-0.04) X 10*3/uL Neutrophils # 11.88 H (1.80-7.70) X 10*3/uL Monocytes # 1.25 H (0.20-1.00) X 10*3/uL Eosinophils # 0 L (0.04-0.35) X 10*3/uL Assessment and Plan Assessment: 1. right knee osteoarthritis - Postoperative day 1 status post right total knee arthroplasty Plan: 1. right knee osteoarthritis - right total knee arthroplasty performed yesterday, Sunday, for 124. Patient stable at bedside this morning. Patient did do well with therapy this morning. Patient does have a walker for home. Discharge home today with health services. 2. Appreciate medical management 3. Pain management - tramadol; Flexeril 4. GI prophylaxis - senna 5. DVT prophylaxis - Lovenox in hospital. Going home with aspirin 81 mg twice a day 30 days 6. PT/OT - weightbearing as tolerated with walker as needed 7. Encourage incentive spirometer use 8. Discharge planning - home today with health services Time with Patient: Less than 30
--- NOTE | 2023-08-21 11:01 | P.PN ---
Progress Note - Text 08/20 631am 58-year-old female status post total knee replacement by Dr. gonzalez. Patient is an On-Q pump for postop pain control with a solution at 8 cc with a VAS of 3 pain is primarily located posteriorly. Dressing clean dry and intact. Plan to continue On-Q pump infusion
[2023-08-21] MEDS ORDERED: MULTIVITAMINS, THERA 1 EACH TAB PO SCH (12:00)
--- NOTE | 2023-08-21 22:27 | P.PN ---
Progress Note - Text Progress Note Date: 08/21/23 - Chief Complaint Knee surgery - History of Present Illness This is a very pleasant 58-year-old patient who follows with Dr. Quispe. Chronic stable medical conditions include GERD, hyperlipidemia, hypertension, osteoarthritis, obstructive sleep apnea uses CPAP, hiatal hernia, hemorrhoids, IBS, l leaky aortic valve, anxiety. Patient undergone right total knee arthroplasty. Some pain. Tolerating her supper. No nausea vomiting. No cardiac history. at the bedside August 20: Doing better. Did ambulate. Tolerated diet. Discussed with patient . Patient to resume lisinopril when systolic blood pressure above 130. Questions answered. Denies any respiratory, urinary symptoms. Medications reviewed Social history: . Alcohol rarely. No smoking. Physical examination: VITAL SIGNS: 97.7, 96, 17, 106 x 70, 93% on room air GENERAL: Comfortable EYES: Pupils equal. Conjunctiva cesilia l. HEENT: External appearance of nose and ears normal, oral cavity grossly normal. NECK: JVD not raised; masses not palpable. HEART: First and second heart sounds are normal; no edema. LUNGS: Respiratory rate normal; clear to auscultation. ABDOMEN: Soft, nontender, liver spleen not palpable, no masses palpable. PSYCH: Alert and oriented x3; mood and affect cesilia l. MUSCULOSKELETAL:No Clubbing/cyanosis;muscles-grossly intact. Dressing over the right knee. WILLIAM stockings. OA INVESTIGATIONS, reviewed in the clinical context: August 20: White count 14.9 hemoglobin 11.8 platelets 284 July 30: White count 7.7 hemoglobin 13.6 platelets 342 sodium 139 potassium 4.9 creatinine 0.8 Assessment plan: -Right total knee arthroplasty IV cefazolin for infection prophylaxis. Subcu Lovenox for DVT prophylaxis pain control -Acute postprocedure blood loss anemia expected from surgery Ferrous sulfate -Leukocytosis, reactive from surgery. No clinical evidence of infection. -Essential hypertension Zestril 5 mg a day. Discussed with patient. Resume the same when systolic blood pressure above 130. Daily blood pressure check -Hyperlipidemia Lipitor 20 mg a day -GERD Omeprazole 40 mg a day -Anxiety Zoloft 50 mg a day -Irritable bowel syndrome Metamucil -Morbid obesity BMI 42.9 Weight loss measures -Obstructive sleep apnea and uses CPAP Discussed with patient and . Questions answered. Thank you Dr. Kulkarni Past Medical History Past Medical History: GERD/Reflux, Hyperlipidemia, Hypertension, Osteoarthritis (OA), Sleep Apnea/CPAP/BIPAP, Vascular Disorder Additional Past Medical History / Comment(s): HIATAL HERNIA and colon polyps/hemorrhoids. IBS. leaky aortic heart valve. USES CPAP. salivary adenitis. History of Any Multi-Drug Resistant Organisms: None Reported Past Surgical History: Cholecystectomy, Heart Catheterization, Hysterectomy, Orthopedic Surgery Additional Past Surgical History / Comment(s): NIYAH, NASAL surgery, laparoscopy/benign uterine cyst, SERGIO KNEES ARTHROSCOPY,SERGIO CARPAL TUNNEL x2, SERGIO WRIST GANGLION CYST x2, CYST REMOVED LT ARM, salivary gland surg. EGD, colonoscopies, heart cath r/t shortness of breath with activity,( no findings of note) 2moles frozen off back. Right total knee arthroplasty. pain clinic procedures, Back surgery Past Anesthesia/Blood Transfusion Reactions: No Reported Reaction, Family History of Problems w/ Anesthesia Additional Past Anesthesia/Blood Transfusion Reaction / Comm: Pt has never received blood. PONV after hysterectomy and back surgery. Brother PONV Past Psychological History: Anxiety Additional Psychological History / Comment(s): Pt resides with her spouse. Smoking Status: Former smoker Past Alcohol Use History: Rare Additional Past Alcohol Use History / Comment(s): quit smoking 20 yrs ago, smoked 1 Pack/ week off and on less than 1 year. Past Drug Use History: None Reported
== END 2023-08-21 12:23 | disposition home health service (06) ==
LOC: OR 10:26 → 4SSUR 14:37 → OR 08-21 12:23
PROVIDERS: ATTEND Orthopaedic Surgery
DX: M17.11 Unilateral primary osteoarthritis, right knee (principal); I10 Essential (primary) hypertension; G47.33 Obstructive sleep apnea (adult) (pediatric); I25.10 Atherosclerotic heart disease of native coronary artery without angina pectoris; K21.9 Gastro-esophageal reflux disease without esophagitis; F41.9 Anxiety disorder, unspecified; E78.5 Hyperlipidemia, unspecified; E66.01 Morbid (severe) obesity due to excess calories; K58.9 Irritable bowel syndrome, unspecified; D62 Acute posthemorrhagic anemia; D72.829 Elevated white blood cell count, unspecified; Z68.41 Body mass index [BMI] 40.0-44.9, adult; Z79.82 Long term (current) use of aspirin; Z87.891 Personal history of nicotine dependence; Z88.0 Allergy status to penicillin; Z88.5 Allergy status to narcotic agent; Z91.040 Latex allergy status; Z86.010 Personal history of colon polyps; Z79.899 Other long term (current) drug therapy
CPT/HCPCS: 94760; 97161; 64999; 64448; 85025; 73560; 27447; C1776; C1713 ×2; C1751; J2250; J1100; J0690 ×3; J2405; J1650; J1170 ×3